=== PATIENT | female | born 1940 | race Caucasian/White ===

== ENCOUNTER 2016-10-22 16:32 | Emergency (ER) | payer MEDICARE, BC ==
[2016-10-22 16:58] VITALS: BP 143/73
--- NOTE | 2016-10-23 17:29 | UC ---
Complaint Female HPI - HPI Summary HPI Summary: PATIENT IS A 76 YO WITH A HISTORY OF UTI'S PRESENTING TO THE UC WITH URINARY PAIN, FREQUENCY AND URGENCY. SHE WAS GIVEN CIPRO ON LAST EPISODE IN AUGUST AND STATED IT WORKED WELL. SHE WAS GIVEN 250MG BID FOR 5 DAYS. SHE WOULD LIKE TO HAVE THE SAME MEDICATION DISPENSED TO HER. SHE DENIES BLOOD IN THE URINE, FEVERS OR BACK PAIN. SHE DENIES OTHER SYMPTOMS INCLUDING ACHES, CHILLS OR SWEATS. - History Of Current Complaint Hx Obtained From: Patient ?: No Onset/Duration: Sudden Onset Timing: Constant Severity Initially: Moderate Severity Currently: Moderate Pain Intensity: 2 Pain Scale Used: 0-10 Numeric Character: Dull, Burning Aggravating Factor(s): Nothing Alleviating Factor(s): Meds Associated Signs And Symptoms: Positive: Negative - Risk Factors Ectopic Risk Factor: Maternal Age ^ 30 Ovarian Torsion Risk Factor: Negative <Rosana Salazar - Last Filed: 10/23/16 17:25> <Holley Bonner - Last Filed: 10/24/16 08:05> - History Of Current Complaint Chief Complaint: UCGU Stated Complaint: BURNING URINATION Time Seen by Provider: 10/22/16 17:01 - Allergies/Home Medications Allergies/Adverse Reactions: Allergies Allergy/AdvReac Type Severity Reaction Status Date / Time Sulfa Drugs Allergy Severe Rash Verified 02/05/16 08:01 Iodinated Contrast Media Allergy Intermediate Hives Verified 02/05/16 08:01 [CONTRAST DYE] Penicillins Allergy Intermediate Rash Verified 02/05/16 08:01 seafood Allergy Severe Hives Uncoded 02/05/16 08:01 PMH/Surg Hx/FS Hx/Imm Hx Previously Healthy: No - SEE BELOW Endocrine History Of: Reports: Thyroid Disease Denies: Diabetes Cardiovascular History Of: Reports: Cardiac Disorders - defibralator, Hypertension, Pacemaker/ICD - DR. CABALLERO FOLLOWING Respiratory History Of: Denies: COPD, Asthma GI/ History Of: Denies: Gastroesophageal Reflux, Renal Disease Neurological History Of: Reports: CVA - TIA, Migraine - possible occular migraines Denies: Dementia, Seizures Psychological History Of: Reports: Anxiety - takes xanax prn, Depression Cancer History Of: Reports: Colorectal Cancer, Breast Cancer - age 40 Other History Of: Anticoagulant Therapy - coumadin - Surgical History Surgical History: Yes Surgery Procedure, Year, and Place: HERNIATED DISK SX LUMBAR LEVEL 3-4 colon ca 2009 section removed. DEFIBRILATOR RT CHEST 2010. mastectomy left side 1980. thyroid surgery 1979. hysterectomy for ovarian cancer 2009 - Family History Known Family History: Positive: Other - osteoporosis - Social History Occupation: Unemployed, Retired Lives: With Family Alcohol Use: None Substance Use Type: None Smoking Status (MU): Never Smoked Tobacco - Immunization History Most Recent Influenza Vaccination: 2014 Most Recent Tetanus Shot: up to date Most Recent Pneumonia Vaccination: 2005 <Rosana Salazar - Last Filed: 10/23/16 17:25> Review of Systems Constitutional: Negative Skin: Negative ENT: Negative Respiratory: Negative Gastrointestinal: Negative Genitourinary: Dysuria, Frequency, Urgency Motor: Negative Neurovascular: Negative Neurological: Negative Psychological: Negative All Other Systems Reviewed And Are Negative: Yes <Rosana Salazar - Last Filed: 10/23/16 17:25> Physical Exam Triage Information Reviewed: Yes Appearance: Well-Appearing, No Pain Distress, Well-Nourished Vital Signs: Initial Vital Signs Temp 98.0 F 10/22/16 16:53 Pulse 62 10/22/16 16:53 Resp 18 10/22/16 16:53 BP 143/73 10/22/16 16:53 Pulse Ox 98 10/22/16 16:53 Eye Exam: Normal Eyes: Positive: Conjunctiva Clear Dental Exam: Normal Respiratory Exam: Normal Respiratory: Positive: Chest non-tender, Lungs clear Cardiovascular Exam: Normal Cardiovascular: Positive: RRR Musculoskeletal Exam: Normal Musculoskeletal: Positive: Strength Intact Neurological Exam: Normal Neurological: Positive: Alert Psychological: Positive: Normal Response To Family, Age Appropriate Behavior Skin Exam: Normal <Rosana Salazar - Last Filed: 10/23/16 17:25> Vital Signs: Initial Vital Signs Temp 98.0 F 10/22/16 16:53 Pulse 62 10/22/16 16:53 Resp 18 10/22/16 16:53 BP 143/73 10/22/16 16:53 Pulse Ox 98 10/22/16 16:53 <Holley Bonner - Last Filed: 10/24/16 08:05> Complaint Female Dx - Course Course Of Treatment: PATIENT WITH BURNING, IRITATION, FREQUENCY AND URGENCY. HISTORY OF UTI'S. PATIENT HAS PYRIMIDINE AND IS REQUESTING CIPRO 5 DAYS. RX GIVEN FOR CIPROFLOXACIN 250MG BID FOR 5 DAYS. SHE WILL FOLLOW UP IN A FEW DAYS WITH PCP. MEDICATIONS REVIEWED WITH PATIENT. BP IS ELEVATED ON ARRIVAL, PATIENT IS INSTRUCTED TO FOLLOW UP IN 1-2 WEEKS WITH PCP. - Differential Dx/Diagnosis Differential Diagnosis/HQI/PQRI: Cervicitis, Pelvic Inflammatory Disease, Renal Colic, Ureteral Stone, Urinary Tract Infection Provider Diagnoses: UTI <Rosana Salazar - Last Filed: 10/23/16 17:25> Discharge <Rosana Salazar - Last Filed: 10/23/16 17:25> <Holley Bonner - Last Filed: 10/24/16 08:05> - Discharge Plan Condition: Stable Disposition: HOME Prescriptions: Ciprofloxacin TAB* [Cipro 250 MG Tab*] 250 mg PO BID #10 tab Patient Education Materials: Urinary Tract Infection in Women (ED) Referrals: Anusha Reed MD [Primary Care Provider] - Additional Instructions: Follow up with PCP as needed. Take Cipro twice daily for 5 days with meals. Use pyrimidine as needed for any bladder spasms or pain If you develop fever, aches, chills, come back to UC. Attestation Statement User Type: Provider - I was available for consult. This patient was seen by the TUNDE. The patient was not presented to, seen by, or examined by me. -Eugene <Holley Bonner - Last Filed: 10/24/16 08:05>
== END 2016-10-22 17:45 | disposition home or self-care (01) ==
LOC: UCEAST 16:32
DX: N39.0 Urinary tract infection, site not specified (principal); B96.89 Other specified bacterial agents as the cause of diseases classified elsewhere
CPT/HCPCS: 81003; 87077; 87086; 87186; 99212; G0463

== ENCOUNTER 2016-12-30 21:00 | Emergency (ER) | payer MEDICARE ==
[2016-12-30] MEDS ORDERED: Aspirin Low Dose CHEW TAB* 81 MG PO ONE (21:49)
[2016-12-30] MEDS ORDERED: HYDROcodone/ACETAMIN 5-325 MG* 1 TAB PO ONE ×2 (22:03→22:51)
[2016-12-30 23:14] VITALS: BP 151/72
--- NOTE | 2016-12-31 08:48 | RAD ---
Edited for charges. INDICATION: Atraumatic chest and right arm pain COMPARISON: Chest x-ray dated February 14, 2016 TECHNIQUE: Single AP view of the chest and 4 views of the right shoulder was obtained. FINDINGS: There is been no change in the appearance of the right chest cardiac pacer with a single lead overlying the heart. The heart and mediastinum exhibit normal size and contour. The lungs are grossly clear. There is no evidence of a large pleural effusion. The visualized bones of the thorax are grossly intact in a single AP view. Degenerative changes of the right shoulder include joint space narrowing, sclerotic change of the bony glenoid and exuberant lower marginal osteophyte formation. The bones are otherwise appropriately aligned. IMPRESSION: 1. No radiographic evidence for acute cardiopulmonary abnormality on this single AP view chest x-ray. 2. Degenerative changes of the right shoulder. MTDD
--- NOTE | 2017-01-07 14:46 | ED ---
Uma Dixon Thomas, scribed for Fabiano Martin MD on 12/30/16 at 2156 . Upper Extremity Pain - HPI Summary HPI Summary: The pt is a 76 y/o F accompanied by and presenting to the ED c/o R arm and R scapula pain that began today at 18:00. The pain is described as sharp when the pt is moving and aching when the patient is still. The pain is constant and is rated 3/10. The pain is worsened with movement. The patient took 2 tylenols at 19:00 that did not relieve the pain. The pt denies recent trauma, tick bites, and heavy lifting. Pt denies fevers, chills, falls, diaphoresis, neck pain, SOB, palpitations, arm swelling. PMHx: PE (last year), V -Fib, arthritis, osteoporosis, breast CA, ovarian CA, pancreatitis, anticoagulant therapy, HTN. PSHx: AICD (6 years), mastectomy. - History of Current Complaint Chief Complaint: EDExtremityUpper Stated Complaint: RT ARM PAIN Time Seen by Provider: 12/30/16 21:38 Hx Obtained From: Patient, Family/Terminal Press Operator - in room Mechanism Of Injury: Unknown Onset/Duration: Started Hours Ago - today at 18:00, Still Present Timing: Constant Pain Location: Arm - R, Other: - R scapula Character: Sharp - when moving, Dull - when still Aggravating Factor(s): Movement Alleviating Factor(s): Nothing, Other - Took tylenol to no relief of pain Associated Signs & Symptoms: Positive: Other - NEG: falls, palpitations, arm swelling. Negative: Fever, Chest Pain, SOB, Neck Pain, Diaphoresis - Allergies/Home Medications Allergies/Adverse Reactions: Allergies Allergy/AdvReac Type Severity Reaction Status Date / Time Sulfa Drugs Allergy Severe Rash Verified 02/05/16 08:01 Iodinated Contrast Media Allergy Intermediate Hives Verified 02/05/16 08:01 [CONTRAST DYE] Penicillins Allergy Intermediate Rash Verified 02/05/16 08:01 seafood Allergy Severe Hives Uncoded 02/05/16 08:01 PMH/Surg Hx/FS Hx/Imm Hx Previously Healthy: No Endocrine/Hematology History: Reports: Hx Anticoagulant Therapy - coumadin, Hx Thyroid Disease Denies: Hx Diabetes, Hx Anemia Cardiovascular History: Reports: Hx Auto Implanted Cardiovert Defib, Hx Hypertension, Hx Pacemaker/ICD - DR. ADA YU, Other Cardiovascular Problems/Disorders - Pacer, ICD, V-Fib Respiratory History: Reports: Hx Pulmonary Embolism Denies: Hx Asthma, Hx Chronic Obstructive Pulmonary Disease (COPD) GI History: Reports: Hx Diverticulosis, Hx Jaundice - as child, Other GI Disorders - Choley, Colon CA History: Denies: Hx Renal Disease Musculoskeletal History: Reports: Hx Arthritis, Hx Back Problems, Hx Osteoporosis Denies: Hx Rheumatoid Arthritis Sensory History: Reports: Hx Contacts or Glasses Denies: Hx Hearing Aid Opthamlomology History: Reports: Hx Contacts or Glasses Neurological History: Reports: Hx Migraine - possible occular migraines, Other Neuro Impairments/Disorders - 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 DEFIBRILATOR RT CHEST 2010. mastectomy left side 1980. thyroid surgery 1979. hysterectomy for ovarian cancer 2009 Hx Anesthesia Reactions: Yes - patient states she is irate when coming out Infectious Disease History: No Infectious Disease History: Reports: Hx Hepatitis - as child Denies: Hx Human Immunodeficiency Virus (HIV), History Other Infectious Disease, Traveled Outside the [place] in Last 30 Days - Family History Known Family History: Positive: Other - osteoporosis - Social History Alcohol Use: None Substance Use Type: Reports: None Smoking Status (MU): Never Smoked Tobacco Review of Systems Constitutional: Negative Negative: Fever, Chills Eyes: Negative Negative: Erythema - eye ENT: Negative Negative: Sore Throat Cardiovascular: Negative Negative: Palpitations, Chest Pain Respiratory: Negative Negative: Shortness Of Breath, Cough Gastrointestinal: Negative Negative: Abdominal Pain, Vomiting, Nausea Genitourinary: Negative Negative: dysuria, hematuria Positive: Other - POS: R arm pain (worse with movement), R scapula pain (worse with movement). Negative: Myalgia, Edema - leg, arm Skin: Negative Negative: Rash Neurological: Negative, Other - NEG: dizziness Psychological: Normal All Other Systems Reviewed And Are Negative: Yes Physical Exam - Summary Physical Exam Summary: Constitutional: Well-developed, Well-nourished, Alert. (-) Distressed Skin: Warm, Dry HENT: Normocephalic; Atraumatic Eyes: Conjunctiva normal Neck: Musculoskeletal ROM normal neck. (-) JVD, (-) Stridor, (-) Tracheal deviation Cardio: Rhythm regular, rate normal, Heart sounds normal; Intact distal pulses; The pedal pulses are 2+ and symmetric. Radial pulses are 2+ and symmetric. (-) Murmur Pulmonary/Chest wall: Effort normal. (-) Respiratory distress, (-) Wheezes, (-) Rales Abd: Soft, (-) Tenderness, (-) Distension, (-) Guarding, (-) Rebound Musculoskeletal: Tenderness to the R shoulder joint. No swelling. No effusion. Extremely limited ROM for the R shoulder. Lymph: (-) Cervical adenopathy Neuro: Alert, Oriented x3 Psych: Mood and affect Normal Triage Information Reviewed: Yes Vital Signs On Initial Exam: Initial Vitals Temp Pulse Resp BP Pulse Ox 98.9 F 82 16 161/84 98 12/30/16 21:02 12/30/16 21:02 12/30/16 21:02 12/30/16 21:02 12/30/16 21:02 Vital Signs Reviewed: Yes Diagnostics - Vital Signs Vital Signs Temp Pulse Resp BP Pulse Ox 12/30/16 21:37 98.9 F 82 16 161/84 98 12/30/16 21:02 98.9 F 82 16 161/84 98 - Laboratory Lab Statement: Any lab studies that have been ordered have been reviewed, and results considered in the medical decision making process. - Radiology R Shoulder XR Xray Interpretation: No Acute Changes - Severe arthritis and bone spurring Radiology Interpretation Completed By: ED Physician CXR Xray Interpretation: No Acute Changes - Negative for active cardiopulmonary disease Radiology Interpretation Completed By: ED Physician - EKG 21:41 Cardiac Rate: NL - 70 BPM EKG Interpretation: Sinus rhythm. No STEMI Course/Dx - Course Assessment/Plan: The pt is a 76 y/o F accompanied by and presenting to the ED c/o R arm and R scapula pain that began today at 18:00. The pain is described as sharp when the pt is moving and aching when the patient is still. The pain is constant and is rated 3/10. The pain is worsened with movement. The patient took 2 tylenols at 19:00 that did not relieve the pain. The pt denies recent trauma, tick bites, and heavy lifting. Pt denies fevers, chills, falls, diaphoresis, neck pain, SOB, palpitations, arm swelling. PMHx: PE (last year), V -Fib, arthritis, osteoporosis, breast CA, ovarian CA, pancreatitis, anticoagulant therapy, HTN. PSHx: AICD (6 years), mastectomy. An EKG revealed sinus rhythm and no STEMI. The Shoulder XR shows severe arthritis and bone spurring. CXR is negative for active cardiopulmonary disease. I consulted with Dr. Etienne, orthopedics, at 22:41. He agrees that there is no fracture. Given her limited ROM and significant XR findings, we believe osteoarthritis is the definite cause for her pain. I do not suspect DVT or cardiac etiology. The patient was diagnosed with severe R shoulder arthritis and discharged home. - Diagnoses Provider Diagnoses: Severe R shoulder arthritis - Physician Notifications Discussed Care of Patient With: Berry Etienne Time Discussed With Above Provider: 22:40 Instructed by Provider To: Other - Discussed patient care. He agrees that there is no fracture. Discharge - Discharge Plan Condition: Stable Disposition: HOME Prescriptions: HYDROcodone/ACETAMIN 5-325 MG* [[place] 5-325 TAB*] 1 tab PO Q6H PRN #12 tab MDD 4 PRN Reason: Pain - Moderate To Severe Patient Education Materials: Arthritis (ED) Referrals: Berry Etienne MD [Medical Doctor] - 3 Days The documentation as recorded by the Uma andrea Thomas accurately reflects the service I personally performed and the decisions made by me, Fabiano Martin MD.
== END 2016-12-30 23:15 | disposition home or self-care (01) ==
LOC: ED 21:00
DX: M19.011 Primary osteoarthritis, right shoulder (principal); Z95.810 Presence of automatic (implantable) cardiac defibrillator; I10 Essential (primary) hypertension; Z86.711 Personal history of pulmonary embolism; Z79.01 Long term (current) use of anticoagulants; Z85.038 Personal history of other malignant neoplasm of large intestine; F41.9 Anxiety disorder, unspecified; F32.9 Major depressive disorder, single episode, unspecified; Z88.0 Allergy status to penicillin; Z88.2 Allergy status to sulfonamides; Z91.041 Radiographic dye allergy status; Z91.013 Allergy to seafood
CPT/HCPCS: 71010; 93005; 99282; A9270-GY

== ENCOUNTER 2016-12-31 06:04 | Emergency (ER) | payer MEDICARE ==
[2016-12-31] MEDS ORDERED: oxyCODONE/Acetamin 5/325 MG* TAB PO ONE (06:39)
--- NOTE | 2016-12-31 06:52 | ED ---
Deven Dixon Alfonso, scribed for Claude Morales on 12/31/16 at 0639 . Upper Extremity Pain - HPI Summary HPI Summary: This patient is a 76 year old F presenting to [facility] accompanied by with a chief complaint of right arm pain since yesterday. Pt rates the pain 8/10 in severity. Symptoms aggravated by touch and position, and alleviated by nothing. Symptoms not alleviated by [place]. Pt denies CP, SOB, abd pain, and fever. She presented to [facility] yesterday for right shoulder arthritis. She is taking Coumadin. PMHx of HTN, arthritis, and osteoporosis. - History of Current Complaint Chief Complaint: EDExtremityUpper Stated Complaint: RIGHT ARM, HAND PAIN AND SHOULDER PAIN Time Seen by Provider: 12/31/16 06:18 Hx Obtained From: Patient Onset/Duration: Started Days Ago - Yesterday Timing: Constant, Lasting Days - Yesterday Severity Initially: Moderate Severity Currently: Moderate Pain Location: Shoulder, Arm Aggravating Factor(s): Other - Touch and position Alleviating Factor(s): Nothing Associated Signs & Symptoms: Positive: Negative - Allergies/Home Medications Allergies/Adverse Reactions: Allergies Allergy/AdvReac Type Severity Reaction Status Date / Time Sulfa Drugs Allergy Severe Rash Verified 02/05/16 08:01 Iodinated Contrast Media Allergy Intermediate Hives Verified 02/05/16 08:01 [CONTRAST DYE] Penicillins Allergy Intermediate Rash Verified 02/05/16 08:01 seafood Allergy Severe Hives Uncoded 02/05/16 08:01 PMH/Surg Hx/FS Hx/Imm Hx Endocrine/Hematology History: Reports: Hx Anticoagulant Therapy - coumadin, Hx Thyroid Disease Denies: Hx Diabetes, Hx Anemia Cardiovascular History: Reports: Hx Auto Implanted Cardiovert Defib, Hx Hypertension, Hx Pacemaker/ICD - DR. ADA YU, Other Cardiovascular Problems/Disorders - Pacer, ICD Respiratory History: Denies: Hx Asthma, Hx Chronic Obstructive Pulmonary Disease (COPD) GI History: Reports: Hx Diverticulosis, Hx Jaundice - as child, Other GI Disorders - Choley, Colon CA History: Denies: Hx Renal Disease Musculoskeletal History: Reports: Hx Arthritis, Hx Back Problems, Hx Osteoporosis Denies: Hx Rheumatoid Arthritis Sensory History: Reports: Hx Contacts or Glasses Denies: Hx Hearing Aid Opthamlomology History: Reports: Hx Contacts or Glasses Neurological History: Reports: Hx Migraine - possible occular migraines, Other Neuro Impairments/Disorders - 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 DEFIBRILATOR RT CHEST 2010. mastectomy left side 1980. thyroid surgery 1979. hysterectomy for ovarian cancer 2009 Hx Anesthesia Reactions: Yes - patient states she is irate when coming out Infectious Disease History: No Infectious Disease History: Reports: Hx Hepatitis - as child Denies: Hx Human Immunodeficiency Virus (HIV), History Other Infectious Disease, Traveled Outside the in Last 30 Days - Family History Known Family History: Positive: Other - osteoporosis - Social History Alcohol Use: None Substance Use Type: Reports: None Smoking Status (MU): Never Smoked Tobacco Review of Systems Negative: Fever Negative: Chest Pain Negative: Shortness Of Breath Negative: Abdominal Pain Positive: Other - Positive right arm and shoulder pain All Other Systems Reviewed And Are Negative: Yes Physical Exam Triage Information Reviewed: Yes Vital Signs On Initial Exam: Initial Vitals Temp Pulse Resp BP Pulse Ox 98.1 F 80 20 178/86 96 12/31/16 06:11 12/31/16 06:11 12/31/16 06:11 12/31/16 06:11 12/31/16 06:11 Vital Signs Reviewed: Yes Appearance: Positive: Well-Appearing, No Pain Distress Skin: Positive: Warm, Skin Color Reflects Adequate Perfusion, Dry Head/Face: Positive: Normal Head/Face Inspection Eyes: Positive: EOMI, PREM ENT: Positive: Normal ENT inspection Neck: Positive: Supple, Nontender Respiratory/Lung Sounds: Positive: Clear to Auscultation, Breath Sounds Present Cardiovascular: Positive: RRR, Pulses are Symmetrical in both Upper and Lower Extremities Abdomen Description: Positive: Nontender, Soft Bowel Sounds: Positive: Present Musculoskeletal: Positive: Other - Diffuse right arm and right arm tenderness. No neurovascular deficit. Neurological: Positive: Normal, Sensory/Motor Intact, Alert, Oriented to Person Place, Time - [place] Coma Scale Coma Scale Total: 15 Diagnostics - Vital Signs Vital Signs Temp Pulse Resp BP Pulse Ox 12/31/16 06:19 82 183/88 98 12/31/16 06:18 79 98 12/31/16 06:12 98.1 F 80 20 178/86 96 12/31/16 06:11 98.1 F 80 20 178/86 96 - Laboratory Lab Statement: Any lab studies that have been ordered have been reviewed, and results considered in the medical decision making process. Course/Dx - Course Assessment/Plan: 68 year old F presents to the ED with a CC of right arm pain since yesterday. Pt denies CP, SOB, abd pain, and fever. An US is pending at this time. Labs are pending at this time. Pt is signed out to Dr. Sommer. - Diagnoses Provider Diagnoses: Pain of right upper extremity Discharge - Discharge Plan Condition: Stable Disposition: OTHER Discharge Disposition Comment: Pt is signed out to Dr. Sommer, pending disposition , awaiting US and labs. Referrals: Anusha Reed MD [Primary Care Provider] - 3 Days The documentation as recorded by the Deven andrea Alfonso accurately reflects the service I personally performed and the decisions made by Andrew ferreira Emmanuel.
[2016-12-31 07:25] LABS: Hematocrit 40 % (35-47); Hemoglobin 13.2 g/dl (12.0-16.0); Mean Corpuscular HGB Conc 33 g/dl (31-36); Mean Corpuscular Hemoglobin 31 pg (27-31); Mean Corpuscular Volume 92 fL (80-97); Mean Platelet Volume 10 um3 (7.4-10.4); Red Blood Count 4.34 10^6/ul (4.0-5.4); Red Cell Distribution Width 14 % (10.5-15); White Blood Count 7.7 10^3/ul (3.5-10.8)
[2016-12-31 07:37] LABS: Albumin 4.1 g/dL (3.2-5.2); BUN/Creatinine Ratio 25.7 (8-20); Calcium 8.8 mg/dL (8.6-10.3); EGFR African American 97.6 (>60); EGFR Non-African American 75.9 (>60); Potassium 3.6 mmol/L (3.5-5.0); Total Bilirubin 0.7 mg/dL (0.2-1.0); Total Protein 7.1 g/dL (6.4-8.9)
--- NOTE | 2016-12-31 08:14 | RAD ---
HISTORY: Right upper extremity pain COMPARISON: None. TECHNIQUE: Multiple transverse and longitudinal ultrasound images were obtained of the veins of the right upper extremity upper extremity using grayscale, color Doppler, and spectral Doppler imaging with and without compression and with augmentation. FINDINGS: VEINS: The axillary, brachial, basilic and cephalic are compressible throughout their course, with normal flow on color Doppler imaging and normal response to augmentation on spectral Doppler imaging. The subclavian vein exhibits appropriate augmentation and phasicity. The radial and ulnar veins are compressible. Evidence of adequate flow is identified in the right internal jugular and subclavian vein as well. SOFT TISSUES: Grossly normal. IMPRESSION: No sonographic evidence of deep vein thrombosis.
[2016-12-31] MEDS ORDERED: Lisinopril TAB* 10 MG PO ONE (09:14)
[2016-12-31] MEDS ORDERED: HYDROmorphone* 1 MG/ML 1 ML SYR IV SLOW PU ONE ×2 (09:17→10:53)
[2016-12-31] MEDS ORDERED: Metoprolol Succinate XL TAB* 50 MG PO ONE (09:19)
[2016-12-31] MEDS ORDERED: Dexamethasone IV* 4 MG/ML 1 ML (4 MG) IM ONE (09:20)
[2016-12-31] MEDS ORDERED: Dexamethasone IV* 4 MG/ML 1 ML (4 MG) IV SLOW PU ONE (09:36)
[2016-12-31] MEDS: Diazepam TAB(*) 5 MG PO ONE ×2 (09:44→10:14)
[2016-12-31 11:29] VITALS: BP 186/74
--- NOTE | 2017-01-02 07:14 | ED ---
Mark Dixon Auryana, scribed for Otto Sommer MD on 12/31/16 at 0904 . Progress - Progress Note Progress Note: sign out from Dr. Morales to Dr. Sommer at 07:00 pending RUE US. Patient was seen here in ED by Dr. Martin yesterday for the same complaint and discharged home. Patient presents to the ED with unimproved pain. She has decreased ROM in the right shoulder. Distal neurovascular intact. Condition stable. - Results/Orders Results/Orders: VL UPPER EXT VEIN DOPPLER RT IMPRESSION: No sonographic evidence of deep vein thrombosis. Re-Evaluation - Re-Evaluation First Eval Re-Evaluation Time: 09:03 - discussed US results and plan of action Comment: Patient reports increase pain in right shoulder with minimal relief from percocet given by previous attending physician. Second Eval Re-Evaluation Time: 10:40 - much improved and agrees with plan of action Change: Improved - much improved Comment: patient will be discharged after another round of medications. patient agrees. Course/Dx - Course Course Of Treatment: Sign out from Dr. Morales to Dr. Sommer at 07:00 pending RUE US. Patient was seen here in ED by Dr. Martin yesterday for the same complaint and discharged home. Patient presents to the ED with unimproved pain. She has decreased ROM in the right shoulder. Distal neurovascular intact. RUE US negative for DVT. On first re-evaluation, patient reports increase pain in right shoulder with minimal relief from Percocet given by previous attending physician. Patient was given diazepam, Dilaudid, and dexamethasone. On second re-evaluation, patient reports much improvement. Patient will be given 1 more round of medications and will be discharged home with Dilaudid and valium. Patient agrees with plan. Dx: Radiculopathy and right arm pain. - Diagnoses Provider Diagnoses: Pain of right upper extremity, Radiculopathy The documentation as recorded by the Mark andrea Auryana accurately reflects the service I personally performed and the decisions made by , Otto Sommer MD.
== END 2016-12-31 11:29 | disposition home or self-care (01) ==
LOC: ED 06:04
DX: M54.10 Radiculopathy, site unspecified (principal); M79.601 Pain in right arm
CPT/HCPCS: 36415; 80053; 85025; 85610; 85730; 96374; 96375; 99283; A9270-GY; J1100; J1170

== ENCOUNTER 2017-02-16 18:27 | Emergency (ER) | payer MEDICARE, BC ==
[2017-02-16 18:59] LABS: Hematocrit 39 % (35-47); Hemoglobin 12.9 g/dl (12.0-16.0); Mean Corpuscular HGB Conc 33 g/dl (31-36); Mean Corpuscular Hemoglobin 30 pg (27-31); Mean Corpuscular Volume 91 fL (80-97); Mean Platelet Volume 9 um3 (7.4-10.4); Red Blood Count 4.33 10^6/ul (4.0-5.4); Red Cell Distribution Width 14 % (10.5-15); White Blood Count 4.3 10^3/ul (3.5-10.8)
[2017-02-16 19:22] LABS: Troponin I 0.01 ng/mL (<0.04)
[2017-02-16 19:36] LABS: Albumin 4.2 g/dL (3.2-5.2); BUN/Creatinine Ratio 16.3 (8-20); Calcium 9.3 mg/dL (8.6-10.3); EGFR African American 89.2 (>60); EGFR Non-African American 69.4 (>60); Potassium 3.8 mmol/L (3.5-5.0); Total Bilirubin 0.7 mg/dL (0.2-1.0); Total Protein 7.2 g/dL (6.4-8.9)
--- NOTE | 2017-02-16 21:24 | RAD ---
INDICATION: Chest pain COMPARISON: December 22, 2016 TECHNIQUE: An AP portable view obtained at 2108 hours is submitted. FINDINGS: Bones/Soft Tissues: There are no acute bony findings. There is a right-sided cardiac pacemaker/defibrillator Cardiomediastinal: The cardiomediastinal silhouette is normal. Lungs: There are no infiltrates. Pleura: There are no pleural effusions. Other: None IMPRESSION: NO ACTIVE DISEASE.
[2017-02-16 21:40] VITALS: BP 154/72
--- NOTE | 2017-02-17 01:19 | ED ---
Yayo Dixon Angela, scribed for Celestina Sanchez MD on 02/16/17 at 1947 . HPI Chest Pain - HPI Summary HPI Summary: This pt is a 76 y/o female presenting to [facility] c/o central chest pain since 13: 00 today. Pt notes it is intermittent and lasts less than 1 minutes. She states approximately 20 chest pain episodes per hour. Pt reports she has a new defibrillator for ventricular tachycardia. She states that she has had breast, colon, and ovarian CA surgeries. Pt is currently on lisinopril and metropolol. She is taking Coumadin for TIA. She denies tobacco, drug or alcohol use. Pt has an iodinated contrast media allergy. - History of Current Complaint Chief Complaint: EDChestPainROMI Time Seen by Provider: 02/16/17 19:25 Hx Obtained From: Patient Onset/Duration: Started Hours Ago Timing: Intermittent Pain Intensity: 2 Pain Scale Used: 0-10 Numeric Chest Pain Location: Mid Sternal Chest Pain Radiates: No Aggravating Factor(s): Nothing Alleviating Factor(s): Nothing Associated Signs and Symptoms: Positive: Chest Pain. Negative: Back Pain - Additional Pertinent History Primary Care Physician: [id number] - Allergy/Home Medications Allergies/Adverse Reactions: Allergies Allergy/AdvReac Type Severity Reaction Status Date / Time Sulfa Drugs Allergy Severe Rash Verified 02/16/17 20:00 Iodinated Contrast Media Allergy Intermediate Hives Verified 02/16/17 20:00 [CONTRAST DYE] Penicillins Allergy Intermediate Rash Verified 02/16/17 20:00 seafood Allergy Severe Hives Uncoded 02/16/17 20:00 Home Medications: Home Medications Aspirin 81 MG TAB 81 mg PO DAILY 02/16/17 [History Confirmed 02/16/17] B12 1,000 mg PO 02/16/17 [History] PMH/Surg Hx/FS Hx/Imm Hx Endocrine/Hematology History: Reports: Hx Anticoagulant Therapy - coumadin, Hx Thyroid Disease Denies: Hx Diabetes, Hx Anemia Cardiovascular History: Reports: Hx Auto Implanted Cardiovert Defib, Hx Hypertension, Hx Pacemaker/ICD - DR. CABALLERO FOLLOWING, Other Cardiovascular Problems/Disorders - Pacer, ICD Respiratory History: Denies: Hx Asthma, Hx Chronic Obstructive Pulmonary Disease (COPD) GI History: Reports: Hx Diverticulosis, Hx Jaundice - as child, Other GI Disorders - Choley, Colon CA History: Denies: Hx Renal Disease Musculoskeletal History: Reports: Hx Arthritis, Hx Back Problems, Hx Osteoporosis Denies: Hx Rheumatoid Arthritis Sensory History: Reports: Hx Contacts or Glasses Denies: Hx Hearing Aid Opthamlomology History: Reports: Hx Contacts or Glasses Neurological History: Reports: Hx Migraine - possible occular migraines, Other Neuro Impairments/Disorders - 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 Breast CA : Left mastectomy. Ovarian CA. Hx Chemotherapy: Yes Hx Radiation Therapy: No - Surgical History Surgery Procedure, Year, and Place: HERNIATED DISK SX LUMBAR LEVEL 3-4 colon ca 2009 section removed. DEFIBRILATOR RT CHEST 2010. mastectomy left side 1980. thyroid surgery 1979. hysterectomy for ovarian cancer 2009 Hx Anesthesia Reactions: Yes - patient states she is irate when coming out Infectious Disease History: Reports: Hx Hepatitis - as child Denies: Hx Human Immunodeficiency Virus (HIV), History Other Infectious Disease, Traveled Outside the [place] in Last 30 Days - Family History Known Family History: Positive: Other - osteoporosis Family History: No FHx of ventricular tachycardia. - Social History Lives: With Family - family Alcohol Use: None Substance Use Type: Reports: None Smoking Status (MU): Never Smoked Tobacco Review of Systems Negative: Fever, Chills Positive: Chest Pain Respiratory: Negative Negative: Abdominal Pain, Vomiting Genitourinary: Negative Musculoskeletal: Negative Skin: Negative Negative: Headache, Weakness All Other Systems Reviewed And Are Negative: Yes Physical Exam Triage Information Reviewed: Yes Vital Signs On Initial Exam: Initial Vitals Temp Pulse Resp BP Pulse Ox 99.3 F 78 17 169/74 97 02/16/17 18:37 02/16/17 18:37 02/16/17 18:37 02/16/17 18:37 02/16/17 18:37 Vital Signs Reviewed: Yes Appearance: Positive: Well-Appearing, No Pain Distress Skin: Positive: Warm, Skin Color Reflects Adequate Perfusion, Dry Eyes: Positive: EOMI, PREM ENT: Positive: Pharynx normal, TMs normal Neck: Positive: Supple, Nontender Respiratory/Lung Sounds: Positive: Clear to Auscultation, Breath Sounds Present. Negative: Rales, Rhonchi, Wheezes Cardiovascular: Positive: RRR. Negative: Murmur, Rub, Other - gallop Abdomen Description: Positive: Nontender, Soft. Negative: Distended, Guarding, Other: - rebound Bowel Sounds: Positive: Present Musculoskeletal: Positive: Strength/ROM Intact. Negative: Edema Left, Edema Right Neurological: Positive: Sensory/Motor Intact, Alert, Oriented to Person Place, Time, CN Intact II-III Psychiatric: Positive: Affect/Mood Appropriate Diagnostics - Vital Signs Vital Signs Temp Pulse Resp BP Pulse Ox 02/16/17 18:37 99.3 F 78 17 169/74 97 - Laboratory Lab Results: Lab Results 02/16/17 02/16/17 02/16/17 Range/Units 18:50 18:50 18:50 WBC 4.3 (3.5-10.8) 10^3/ul RBC 4.33 (4.0-5.4) 10^6/ul Hgb 12.9 (12.0-16.0) g/dl Hct 39 (35-47) % MCV 91 (80-97) fL MCH 30 (27-31) pg MCHC 33 (31-36) g/dl RDW 14 (10.5-15) % Plt Count 168 (150-450) 10^3/ul MPV 9 (7.4-10.4) um3 Neut % (Auto) 48.7 (38-83) % Lymph % (Auto) 33.1 (25-47) % Tama % (Auto) 15.3 H (1-9) % Eos % (Auto) 1.6 (0-6) % Baso % (Auto) 1.3 (0-2) % Absolute Neuts (auto) 2.1 (1.5-7.7) 10^3/ul Absolute Lymphs (auto) 1.4 (1.0-4.8) 10^3/ul Absolute Monos (auto) 0.7 (0-0.8) 10^3/ul Absolute Eos (auto) 0.1 (0-0.6) 10^3/ul Absolute Basos (auto) 0.1 (0-0.2) 10^3/ul Absolute Nucleated RBC 0 10^3/ul Nucleated RBC % 0.1 INR (Anticoag Therapy) 1.72 H (0.89-1.11) Sodium 137 (133-145) mmol/L Potassium 3.8 (3.5-5.0) mmol/L Chloride 102 (101-111) mmol/L Carbon Dioxide 27 (22-32) mmol/L Anion Gap 8 (2-11) mmol/L BUN 13 (6-24) mg/dL Creatinine 0.80 (0.51-0.95) mg/dL Est GFR ( Amer) 89.2 (>60) Est GFR (Non-Af Amer) 69.4 (>60) BUN/Creatinine Ratio 16.3 (8-20) Glucose 99 (70-100) mg/dL Calcium 9.3 (8.6-10.3) mg/dL Total Bilirubin 0.70 (0.2-1.0) mg/dL AST 20 (13-39) U/L ALT 13 (7-52) U/L Alkaline Phosphatase 58 (34-104) U/L Troponin I 0.01 (<0.04) ng/mL Total Protein 7.2 (6.4-8.9) g/dL Albumin 4.2 (3.2-5.2) g/dL Globulin 3.0 (2-4) g/dL Albumin/Globulin Ratio 1.4 (1-3) Result Diagrams: 02/16/17 18:50 02/16/17 18:50 Lab Statement: Any lab studies that have been ordered have been reviewed, and results considered in the medical decision making process. - Radiology Chest XR Xray Interpretation: No Acute Changes - IMPRESSION: no active disease. ED physician has reviewed this radiology report and agrees. Radiology Interpretation Completed By: Radiologist - EKG 1858 Cardiac Rate: NL EKG Rhythm: Sinus Rhythm EKG Interpretation: LVH Chest Pain Course/Dx - Course Course Of Treatment: 76 yo female with intermittent cp with hx of PE ddimer was neg (INR was not therapeutic) and two trops were neg pt was safe for discharge close followup with pmd - Diagnoses Provider Diagnoses: Chest pain Discharge - Discharge Plan Condition: Stable Disposition: HOME Patient Education Materials: Chest Pain (ED) Referrals: Anusha Reed MD [Primary Care Provider] - The documentation as recorded by the Yayo andrea Angela accurately reflects the service I personally performed and the decisions made by , Celestina Sanchez MD.
== END 2017-02-16 21:43 | disposition home or self-care (01) ==
LOC: ED 18:27
DX: R07.9 Chest pain, unspecified (principal); Z86.73 Personal history of transient ischemic attack (TIA), and cerebral infarction without residual deficits; Z79.01 Long term (current) use of anticoagulants; Z95.810 Presence of automatic (implantable) cardiac defibrillator; E07.9 Disorder of thyroid, unspecified; K57.90 Diverticulosis of intestine, part unspecified, without perforation or abscess without bleeding; F41.9 Anxiety disorder, unspecified; I47.2 Ventricular tachycardia; Z88.0 Allergy status to penicillin; Z88.2 Allergy status to sulfonamides; Z85.038 Personal history of other malignant neoplasm of large intestine; Z85.3 Personal history of malignant neoplasm of breast; M19.90 Unspecified osteoarthritis, unspecified site; M81.0 Age-related osteoporosis without current pathological fracture
CPT/HCPCS: 36415; 71010; 80053; 84484; 85025; 85379; 85610; 93005; 99284

== ENCOUNTER 2017-07-22 14:55 | Emergency (ER) | payer MEDICARE, OTHER ==
[2017-07-22 15:34] VITALS: BP 173/86
--- NOTE | 2017-07-22 16:07 | UC ---
Skin Complaint HPI - HPI Summary HPI Summary: Patient is s/p skin biopsy of the left elbow 9 days ago by her dentist/owner. She was seen there a few days ago with concerns with drainage; she reports she had been having light yellow drainage from the site of biopsy. She denies any fever, chills, or joint pain associated with the biopsy. - History of Current Complaint Chief Complaint: UCSkin Time Seen by Provider: 07/22/17 15:53 Stated Complaint: ELBOW WOUND W/ DRAINAGEC Hx Obtained From: Patient Onset/Duration: Sudden Onset, Lasting Days Skin Exposure Onset/Duration: Days Ago Onset Severity: Mild Current Severity: Mild Pain Intensity: 1 Location: Discrete Character: Redness Aggravating Factor(s): Nothing Alleviating Factor(s): Nothing Associated Signs & Symptoms: Positive: Negative Related History: Other: - recent skin biopsy - Allergy/Home Medications Allergies/Adverse Reactions: Allergies Allergy/AdvReac Type Severity Reaction Status Date / Time Iodinated Contrast- Oral and Allergy Hives Verified 07/22/17 15:38 IV Dye Penicillins Allergy Rash Verified 07/22/17 15:37 Sulfa (Sulfonamide Allergy Rash Verified 07/22/17 15:37 Antibiotics) seafood Allergy Severe Hives Uncoded 02/16/17 20:00 Home Medications: Home Medications Warfarin TAB(*) [Coumadin TAB(*)] 1 tab PO DAILY 07/22/17 [History Confirmed ] Review of Systems Constitutional: Negative Skin: Negative Eyes: Other - left elbow s/p skin biopsy with light yellow drainae. ENT: Negative Respiratory: Negative Cardiovascular: Negative Gastrointestinal: Negative Genitourinary: Negative Motor: Negative Neurovascular: Negative Musculoskeletal: Negative Neurological: Negative Psychological: Negative Is Patient Immunocompromised?: No All Other Systems Reviewed And Are Negative: Yes PMH/Surg Hx/FS Hx/Imm Hx Previously Healthy: Yes Other History Of: Anticoagulant Therapy - coumadin - Surgical History Surgical History: Yes Surgery Procedure, Year, and Place: HERNIATED DISK SX LUMBAR LEVEL 3-4 colon ca 2009 section removed. DEFIBRILATOR RT CHEST 2010. mastectomy left side 1980. thyroid surgery 1979. hysterectomy for ovarian cancer 2009 - Family History Known Family History: Positive: Other - osteoporosis Family History: No FHx of ventricular tachycardia. - Social History Alcohol Use: None Substance Use Type: None Smoking Status (MU): Never Smoked Tobacco - Immunization History Most Recent Influenza Vaccination: 2014 Most Recent Tetanus Shot: \ Most Recent Pneumonia Vaccination: 2005 Physical Exam Triage Information Reviewed: Yes Appearance: Well-Appearing Vital Signs: Initial Vital Signs Temp 97.6 F 07/22/17 15:29 Pulse 81 07/22/17 15:29 Resp 18 07/22/17 15:29 BP 173/86 07/22/17 15:29 Pulse Ox 99 07/22/17 15:29 Vital Signs Reviewed: Yes Eye Exam: Normal ENT Exam: Normal Neck exam: Normal Neck: Positive: 1 Respiratory Exam: Normal Cardiovascular Exam: Normal Neurological Exam: Normal Skin Exam: Other - left elbow biospy site, with mild pink surrounding biospy site, 2.0 cm in diametere. small amount of clear serous drainage noted, joint nontender with flexion, and extension. joint no warmth on palpation. Course/Dx - Course Course Of Treatment: Patient presents s/p skin biospy from 9 days ago, and she was seen and evaluated by them for the serous drainage. Today she has some pink skin surrounding the biospy site, with no signs or symtpoms of joint involvement or systemic inflammatory responce. I did put her on kelfex and asked her to follow up with the dermatolgist again on Monday. I told her that if she should develops any joint pain, fever, or chills that she would need to go directly to the ER. She verbalzied understanding of and was in agreement with the discharge plan. - Differential Diagnoses - Skin Complaint Differential Diagnoses: Cellulitis - Diagnoses Provider Diagnoses: cellulitis Discharge - Discharge Plan Condition: Stable Disposition: HOME Prescriptions: Cephalexin CAP* [Keflex CAP*] 250 mg PO BID #10 cap Patient Education Materials: Cellulitis (DC) Referrals: Anusha Reed MD [Primary Care Provider] - Additional Instructions: You should follow up with the dentist/owner in 48 hours.
== END 2017-07-22 16:29 | disposition home or self-care (01) ==
LOC: UCEAST 14:55
DX: L03.114 Cellulitis of left upper limb (principal); Z79.01 Long term (current) use of anticoagulants
CPT/HCPCS: 87070; 87205; 99212; G0463

== ENCOUNTER → 2017-12-08 16:46 | Emergency (ER) | payer MEDICARE, OTHER ==
[2017-12-08 17:19] LABS: ABS Basophils 0.1 10^3/ul (0-0.2); ABS Eosinophils 0.1 10^3/ul (0-0.6); ABS Lymphocytes 1.4 10^3/ul (1.0-4.8); ABS Monocytes 0.7 10^3/ul (0-0.8); ABS Neutrophils 2.4 10^3/ul (1.5-7.7); ABS Nucleated RBC 0 10^3/ul; Eosinophil % 2.3 % (0-6); Hematocrit 38 % (35-47); Hemoglobin 12.9 g/dl (12.0-16.0); Lymphocyte % 29.7 % (25-47); Mean Corpuscular HGB Conc 34 g/dl (31-36); Mean Corpuscular Hemoglobin 30 pg (27-31); Mean Corpuscular Volume 90 fL (80-97); Mean Platelet Volume 9.2 um3 (7.4-10.4); Nucleated Red Blood Cells % 0.1; Platelet Count 155 10^3/ul (150-450); Red Blood Count 4.26 10^6/ul (4.00-5.40); Red Cell Distribution Width 14 % (10.5-15); White Blood Count 4.7 10^3/ul (3.5-10.8)
[2017-12-08 17:37] LABS: EGFR Non-African American 58.2 (>60); INR 2.65 (0.77-1.02)
--- NOTE | 2017-12-08 18:23 | RAD ---
INDICATION: Defibrillator vibrating since the previous day COMPARISON: Most recent comparison chest x-rays dated February 16, 2017 TECHNIQUE: Single AP portable view of the chest was obtained. FINDINGS: Image quality is compromised due to the relative inferiority of a portable chest x-ray. Again seen is a right chest cardiac pacemaker with a single lead overlying the heart. The heart and mediastinum exhibit normal size and contour. There is coarse calcification overlying the arch of the aorta. The lungs are grossly clear. There is no evidence of a large pleural effusion. Visualized bones are normal for the patient's age. IMPRESSION: No radiographic evidence for acute cardiopulmonary abnormality on this portable chest x-ray.
--- NOTE | 2017-12-08 23:35 | ED ---
Arin Dixon Emily, scribed for Victorina Madrid MD on 12/08/17 at 2321 . Progress - Progress Note Progress Note: Miguel Angel was here and interrogated the pacemaker, and found that the pt needs to have replacement of the device. There are three months left on the current device. Miguel Angel has contacted Dr. Fernandez and will contact Dr. Rosales in 3 days. Course/Dx - Course Course Of Treatment: Pt was signed out from Dr. Martin upon shift change pending interrogation of pacemaker. Miguel Angel was here and interrogated the pacemaker , and found that the pt needs to have replacement of the device. There are three months left on the current device. Miguel Angel has contacted Dr. Fernandez and will contact Dr. Rosales in 3 days. Pt will be discharged with follow up from PCP and cardiology. - Diagnoses Provider Diagnoses: Pacemaker complications Discharge - Sign-Out/Discharge Documenting (check all that apply): Discharge/Admit/Transfer - Discharge home, Receiving Sign-Out Receiving patient FROM: Fabiano Martin - Upon shift change pending pacemaker interrogation - Discharge Plan Condition: Stable Disposition: HOME Patient Education Materials: Pacemaker (DC) Referrals: Anusha Reed MD [Primary Care Provider] - 3 Days Sandy Fernandez MD [Medical Doctor] - 3 Days Additional Instructions: RETURN TO THE EMERGENCY DEPARTMENT FOR NEW OR WORSENING SYMPTOMS The documentation as recorded by the Arin andrea Emily accurately reflects the service I personally performed and the decisions made by Mercy ferreira Abdul, MD.
[2017-12-09 00:33] VITALS: BP 158/89
--- NOTE | 2017-12-12 06:53 | ED ---
Eamon Dixon Tiffany, scribed for Fabiano Martin MD on 12/08/17 at 1823 . Palpitations / Dysrhythmia - HPI Summary HPI Summary: 77 year old F referred by Dr. Rosales, cardiology, to [facility] complains of intermittent defibrillator vibrations since last night. Symptoms aggravated by nothing. Symptoms alleviated by nothing. Patient denies chest tightness, chest pressure, chest pain, and shortness of breath. - History of Current Complaint Chief Complaint: EDDysrhythmPalp Time Seen by Provider: 12/08/17 16:52 Hx Obtained From: Patient Onset/Duration: Lasting Days - since last night, Still Present Timing: Intermittent Episodes Lasting: Aggravating: Nothing Alleviating: Nothing - Allergy/Home Medications Allergies/Adverse Reactions: Allergies Allergy/AdvReac Type Severity Reaction Status Date / Time Iodinated Contrast- Oral and Allergy Hives Verified 12/08/17 17:02 IV Dye Penicillins Allergy Rash Verified 12/08/17 17:02 Sulfa (Sulfonamide Allergy Rash Verified 12/08/17 17:02 Antibiotics) seafood Allergy Severe Hives Uncoded 12/08/17 17:02 Home Medications: Home Medications Cholecalciferol TAB* [Vitamin D TAB*] 2,000 units PO DAILY 12/08/17 [History Confirmed 12/08/17] Cyanocobalamin TAB* [Vitamin B12 TAB*] 1,000 mcg PO DAILY 12/08/17 [History Confirmed 12/08/17] Levothyroxine TAB* [Synthroid TAB*] 50 mcg PO DAILY 12/08/17 [History Confirmed 12/08/17] Lisinopril TAB* [Prinivil TAB*] 5 mg PO QAM 12/08/17 [History Confirmed 12/08/17 ] Lisinopril TAB* [Prinivil TAB*] 10 mg PO QPM 12/08/17 [History Confirmed ] Simvastatin TAB(NF) [Zocor(NF)] 10 mg PO BEDTIME 12/08/17 [History Confirmed 11/20] PMH/Surg Hx/FS Hx/Imm Hx Previously Healthy: No Endocrine/Hematology History: Reports: Hx Anticoagulant Therapy - coumadin, Hx Thyroid Disease Denies: Hx Diabetes, Hx Anemia Cardiovascular History: Reports: Hx Auto Implanted Cardiovert Defib, Hx Hypertension, Hx Pacemaker/ICD - DR. ROSALES FOLLOWING, Other Cardiovascular Problems/Disorders - Pacer, ICD Respiratory History: Denies: Hx Asthma, Hx Chronic Obstructive Pulmonary Disease (COPD) GI History: Reports: Hx Diverticulosis, Hx Jaundice - as child, Other GI Disorders - Choley, Colon CA History: Denies: Hx Renal Disease Musculoskeletal History: Reports: Hx Arthritis, Hx Back Problems, Hx Osteoporosis Denies: Hx Rheumatoid Arthritis Sensory History: Reports: Hx Contacts or Glasses Denies: Hx Hearing Aid Opthamlomology History: Reports: Hx Contacts or Glasses Neurological History: Reports: Hx Migraine - possible occular migraines, Other Neuro Impairments/Disorders - 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 Breast CA : Left mastectomy. Ovarian CA. Hx Chemotherapy: Yes Hx Radiation Therapy: No - Surgical History Surgery Procedure, Year, and Place: HERNIATED DISK SX LUMBAR LEVEL 3-4 colon ca 2008 section removed. DEFIBRILATOR RT CHEST 2010. mastectomy left side 1980. thyroid surgery 1979. hysterectomy for ovarian cancer 2009 Hx Anesthesia Reactions: Yes - patient states she is irate when coming out Infectious Disease History: No Infectious Disease History: Reports: Hx Hepatitis - as child Denies: Hx Human Immunodeficiency Virus (HIV), History Other Infectious Disease, Traveled Outside the [place] in Last 30 Days - Family History Known Family History: Positive: Other - osteoporosis Family History: No FHx of ventricular tachycardia. - Social History Alcohol Use: None Hx Substance Use: No Substance Use Type: Reports: None Hx Tobacco Use: No Smoking Status (MU): Never Smoked Tobacco Review of Systems Negative: Fever, Chills Negative: Erythema Negative: Sore Throat Negative: Chest Pain Negative: Shortness Of Breath, Cough Negative: Abdominal Pain, Vomiting, Nausea Negative: dysuria, hematuria Negative: Myalgia, Edema Negative: Rash Neurological: Negative - Dizziness All Other Systems Reviewed And Are Negative: Yes Physical Exam - Summary Physical Exam Summary: Constitutional: Well-developed, Well-nourished, Alert. (-) Distressed Skin: Warm, Dry HENT: Normocephalic; Atraumatic Eyes: Conjunctiva normal Neck: Musculoskeletal ROM normal neck. (-) JVD, (-) Stridor, (-) Tracheal deviation Cardio: Rhythm regular, rate normal, Heart sounds normal; Intact distal pulses; The pedal pulses are 2+ and symmetric. Radial pulses are 2+ and symmetric. (-) Murmur Pulmonary/Chest wall: Effort normal. (-) Respiratory distress, (-) Wheezes, (-) Rales Abd: Soft, (-), epigastric tenderness, (-) Distension, (-) Guarding, (-) Rebound Musculoskeletal: (-) Edema Lymph: (-) Cervical adenopathy Neuro: Alert, Oriented x3 Psych: Mood and affect Normal Triage Information Reviewed: Yes Vital Signs On Initial Exam: Initial Vitals Temp Pulse Resp BP Pulse Ox 97.9 F 75 16 168/117 97 12/08/17 17:02 12/08/17 17:02 12/08/17 17:02 12/08/17 17:02 12/08/17 17:02 Vital Signs Reviewed: Yes Diagnostics - Vital Signs Vital Signs Temp Pulse Resp BP Pulse Ox 12/08/17 17:02 97.9 F 75 16 168/117 97 - Laboratory Lab Results: Lab Results 12/08/17 12/08/17 12/08/17 Range/Units 17:08 17:08 17:08 WBC 4.7 (3.5-10.8) 10^3/ul RBC 4.26 (4.00-5.40) 10^6/ul Hgb 12.9 (12.0-16.0) g/dl Hct 38 (35-47) % MCV 90 (80-97) fL MCH 30 (27-31) pg MCHC 34 (31-36) g/dl RDW 14 (10.5-15) % Plt Count 155 (150-450) 10^3/ul MPV 9.2 (7.4-10.4) um3 Neut % (Auto) 52.0 (38-83) % Lymph % (Auto) 29.7 (25-47) % Hanson % (Auto) 14.9 H (0-7) % Eos % (Auto) 2.3 (0-6) % Baso % (Auto) 1.1 (0-2) % Absolute Neuts (auto) 2.4 (1.5-7.7) 10^3/ul Absolute Lymphs (auto) 1.4 (1.0-4.8) 10^3/ul Absolute Monos (auto) 0.7 (0-0.8) 10^3/ul Absolute Eos (auto) 0.1 (0-0.6) 10^3/ul Absolute Basos (auto) 0.1 (0-0.2) 10^3/ul Absolute Nucleated RBC 0 10^3/ul Nucleated RBC % 0.1 INR (Anticoag Therapy) (0.77-1.02) APTT (26.0-36.3) seconds Sodium 139 (135-145) mmol/L Potassium 4.0 (3.5-5.0) mmol/L Chloride 105 (101-111) mmol/L Carbon Dioxide 25 (22-32) mmol/L Anion Gap 9 (2-11) mmol/L BUN 18 (6-24) mg/dL Creatinine 0.93 (0.51-0.95) mg/dL Est GFR ( Amer) 70.4 (>60) Est GFR (Non-Af Amer) 58.2 (>60) BUN/Creatinine Ratio 19.4 (8-20) Glucose 105 H (70-100) mg/dL Lactic Acid 0.9 (0.5-2.0) mmol/L Calcium 9.0 (8.6-10.3) mg/dL Total Bilirubin 0.60 (0.2-1.0) mg/dL AST 19 (13-39) U/L ALT 17 (7-52) U/L Alkaline Phosphatase 59 (34-104) U/L Troponin I 0.01 (<0.04) ng/mL Total Protein 6.9 (6.4-8.9) g/dL Albumin 4.1 (3.2-5.2) g/dL Globulin 2.8 (2-4) g/dL Albumin/Globulin Ratio 1.5 (1-3) 12/08/17 Range/Units 17:08 WBC (3.5-10.8) 10^3/ul RBC (4.00-5.40) 10^6/ul Hgb (12.0-16.0) g/dl Hct (35-47) % MCV (80-97) fL MCH (27-31) pg MCHC (31-36) g/dl RDW (10.5-15) % Plt Count (150-450) 10^3/ul MPV (7.4-10.4) um3 Neut % (Auto) (38-83) % Lymph % (Auto) (25-47) % Hanson % (Auto) (0-7) % Eos % (Auto) (0-6) % Baso % (Auto) (0-2) % Absolute Neuts (auto) (1.5-7.7) 10^3/ul Absolute Lymphs (auto) (1.0-4.8) 10^3/ul Absolute Monos (auto) (0-0.8) 10^3/ul Absolute Eos (auto) (0-0.6) 10^3/ul Absolute Basos (auto) (0-0.2) 10^3/ul Absolute Nucleated RBC 10^3/ul Nucleated RBC % INR (Anticoag Therapy) 2.65 H (0.77-1.02) APTT 42.0 H (26.0-36.3) seconds Sodium (135-145) mmol/L Potassium (3.5-5.0) mmol/L Chloride (101-111) mmol/L Carbon Dioxide (22-32) mmol/L Anion Gap (2-11) mmol/L BUN (6-24) mg/dL Creatinine (0.51-0.95) mg/dL Est GFR ( Amer) (>60) Est GFR (Non-Af Amer) (>60) BUN/Creatinine Ratio (8-20) Glucose (70-100) mg/dL Lactic Acid (0.5-2.0) mmol/L Calcium (8.6-10.3) mg/dL Total Bilirubin (0.2-1.0) mg/dL AST (13-39) U/L ALT (7-52) U/L Alkaline Phosphatase (34-104) U/L Troponin I (<0.04) ng/mL Total Protein (6.4-8.9) g/dL Albumin (3.2-5.2) g/dL Globulin (2-4) g/dL Albumin/Globulin Ratio (1-3) Result Diagrams: 12/08/17 17:08 12/08/17 17:08 Lab Statement: Any lab studies that have been ordered have been reviewed, and results considered in the medical decision making process. - Radiology CXR Radiology Interpretation Completed By: Radiologist - No radiographic evidence for acute cardiopulmonary abnormality on this portable chest x-ray. ED physician has reviewed this report. - EKG 1705 Cardiac Rate: NL - 73 BPM EKG Rhythm: Sinus Rhythm EKG Interpretation: NON STEMI Course/Dx - Course Course Of Treatment: 77 y/o F presents with intermittent defibrillator vibrations since last night. Bloodwork with no significant abnormalities. EKG negative for nonSTEMI and CXR negative for acute cardiopulmonary abnormality. Patient will be signed out Dr. Madrid at shift change, awaiting pacemaker interrogation, pending dispo. - Diagnoses Provider Diagnoses: Pacemaker complications Discharge - Sign-Out/Discharge Documenting (check all that apply): Sign-Out Patient Signing out patient TO: Victorina Madrid - awaiting pacemaker interrogation, pending dispo - Discharge Plan Referrals: Anusha Reed MD [Primary Care Provider] - The documentation as recorded by the zully, Lynn Knutson SCRIBE accurately reflects the service I personally performed and the decisions made by Veronica ferreira Jerry, MD.
== END | disposition home or self-care (01) ==
LOC: ED 16:46
DX: T82.9XXA Unspecified complication of cardiac and vascular prosthetic device, implant and graft, initial encounter (principal); Z88.0 Allergy status to penicillin; Z79.01 Long term (current) use of anticoagulants
CPT/HCPCS: 36415; 71045; 80053; 83605; 84484; 85025; 85610; 85730; 93005; 99283

== ENCOUNTER → 2017-12-25 12:06 | Day surgery (SDC) | payer MEDICARE, OTHER ==
[~2017-12-25 12:06] MED LIST: Clindamycin 600 MG IVPREMIX(* 600 MG/50 ML SDV IV ONE; Lidocaine 1% INJ* 10 MG/ML 30 ML SDV ONE; Midazolam* 1 MG/ML 5 ML VIAL (5 MG) ONE; fentaNYL* 50 MCG/ML 2 ML VIAL (100 MCG VIAL) ONE
[2017-12-25 13:42] LABS: INR 1.99 (0.77-1.02)
--- NOTE | 2017-12-26 03:27 | OP ---
CC: Dr. Anusha Reed * DATE OF OPERATION: 12/25/17 - [facility] CATH DATE OF : 36. SURGEON: Dung Rosales M.D. ANESTHESIA: Local anesthesia with conscious sedation. PRE-OP DIAGNOSIS: Ventricular tachycardia, ICD at elective replacement indicator. POST-OP DIAGNOSIS: Ventricular tachycardia, ICD at elective replacement indicator. OPERATIVE PROCEDURE: Single-chamber ICD generator change. ESTIMATED BLOOD LOSS: None. COMPLICATIONS: None. INDICATIONS: The patient is a 77-year-old female with a history of idiopathic ventricular tachycardia. She had an ICD implanted in 2008. She has been followed by our office. The patient's ICD reached elective replacement indicator, generator change was recommended. The patient does have a Riata, she believes that was on advisement from the FDA , this was interrogated and noted to be functioning normally. DESCRIPTION OF PROCEDURE: The patient was brought to the operating room in a fasting state. Informed consent had been obtained prior to the procedure. All labs were reviewed. The patient was placed supine on the procedure table. Her Coumadin level was continued for this procedure. The patient's right pectoral area was prepped and draped in the usual fashion. 1% lidocaine was used for local anesthesia. A 4-cm incision was made along the previous incision line. Blunt dissection was carried down to the fibrous sheath. The fibrous sheath was opened and the ICD was removed from the pocket. It was detached from the ventricular lead. A new generator was attached to the ventricular lead. It was placed back into the pocket. The incision was closed in three layers. The patient tolerated the procedure well. No complications. The implanted device is a [employer], model [id number], serial number [id number]. [id number]/[facility] #: [id number] [facility]
== END | disposition home or self-care (01) ==
LOC: CHICATH 12:06
PROVIDERS: ATTEND Specialist
DX: I47.2 Ventricular tachycardia (principal); Z45.02 Encounter for adjustment and management of automatic implantable cardiac defibrillator; I42.8 Other cardiomyopathies; R07.9 Chest pain, unspecified; Z79.01 Long term (current) use of anticoagulants; Z85.3 Personal history of malignant neoplasm of breast; Z85.038 Personal history of other malignant neoplasm of large intestine; Z85.43 Personal history of malignant neoplasm of ovary; I08.1 Rheumatic disorders of both mitral and tricuspid valves; Z87.891 Personal history of nicotine dependence
CPT/HCPCS: 33262; 36415; 85610; 88300; 99156; 99157; C1722; J2250; J3010

== ENCOUNTER 2018-09-18 03:06 | Emergency (ER) | payer MEDICARE, OTHER ==
[2018-09-18] MEDS ORDERED: NS 0.9% 1000 ML** 1,000 ML IV ONE (03:43)
[2018-09-18] MEDS ORDERED: fentaNYL* 50 MCG/ML 2 ML VIAL (100 MCG VIAL) IV SLOW PU ONE (03:44)
[2018-09-18] MEDS ORDERED: Ondansetron INJ* 2 MG/ML VIAL IV ONE (03:44)
--- NOTE | 2018-09-18 03:49 | ED ---
Complex/Multi-Sys Presentation - HPI Summary HPI Summary: Patient is a 77 y/o F presenting to ED with complaints of abdominal pain and left shoulder/upper back pain. Patient has pancreatic cancer for which she had surgery at [facility] within the past week. She was given an epidural for three days after the surgery. This was discontinued and she was placed on PO pain medication. However, she states that she has a difficult swallowing her pain medications. Patient states that she has been experiencing abdominal pain for the past week. However, when patient returned to [place] this evening, she reports experiencing an exacerbation of her abdominal pain. She also notes acute onset of back left shoulder pain and a "burning spot" under the left armpit. Pain is aggravated by deep breaths but denies SOB. Patient's notes that patient has defib at left upper shoulder is reported. On triage, pain is rated 7/10, nothing is noted to aggravate/alleviate Sx, and it is noted that the patient took 5 mg oxycodone at 2300 09/17/18. Home medications and allergies are reviewed. - History Of Current Complaint Chief Complaint: EDGeneral Time Seen by Provider: 09/18/18 03:27 Hx Obtained From: Patient Onset/Duration: Lasting Weeks - abdominal pain, Still Present, Worse Since - this evening Timing: Constant, Hours - worse abdominal pain, left shoulder/upper back pain, Weeks - abdominal pain Severity Currently: Severe - 7/10 Severity Initially: Moderate Location: Pain At: - abdomen, left shoulder, left armpit, left upper back Aggravating Factor(s): nothing Alleviating Factor(s): nothing Associated Signs And Symptoms: Positive: Abdominal Pain, Back Pain - left upper , Other - left shoulder pain, "burning spot" at left armpit. Negative: SOB - Allergies/Home Medications Allergies/Adverse Reactions: Allergies Allergy/AdvReac Type Severity Reaction Status Date / Time Iodinated Contrast- Oral and Allergy Hives Verified 09/18/18 03:31 IV Dye Penicillins Allergy Rash Verified 09/18/18 03:31 Sulfa (Sulfonamide Allergy Rash Verified 09/18/18 03:31 Antibiotics) seafood Allergy Severe Hives Uncoded 09/18/18 03:31 Home Medications: Home Medications Acetaminophen [Tylenol] 1 - 2 tab PO SEE INSTRUCTIONS PRN 09/18/18 [History Confirmed 09/18/18] Docusate Sodium [Colace] 100 mg PO SEE INSTRUCTIONS PRN 09/18/18 [History Confirmed 09/18/18] Pantoprazole TAB * [Protonix TAB*] 40 mg PO DAILY 09/18/18 [History Confirmed ] Rivaroxaban TAB(*) [Xarelto 10 mg (*)] 10 mg PO DAILY 09/18/18 [History Confirmed 09/18/18] oxyCODONE TAB* [Roxycodone TAB 5 mg*] 5 mg PO Q6H PRN 09/18/18 [History Confirmed 09/18/18] PMH/Surg Hx/FS Hx/Imm Hx Endocrine/Hematology History: Reports: Hx Anticoagulant Therapy - coumadin, Hx Thyroid Disease Denies: Hx Diabetes, Hx Anemia Cardiovascular History: Reports: Hx Auto Implanted Cardiovert Defib, Hx Hypertension, Hx Pacemaker/ICD - DR. CABALLERO FOLLOWING, Other Cardiovascular Problems/Disorders - Pacer, ICD Respiratory History: Denies: Hx Asthma, Hx Chronic Obstructive Pulmonary Disease (COPD) GI History: Reports: Hx Diverticulosis, Hx Jaundice - as child, Other GI Disorders - Choley, Colon CA History: Denies: Hx Renal Disease Musculoskeletal History: Reports: Hx Arthritis, Hx Back Problems, Hx Osteoporosis Denies: Hx Rheumatoid Arthritis Sensory History: Reports: Hx Contacts or Glasses Denies: Hx Hearing Aid Opthamlomology History: Reports: Hx Contacts or Glasses Neurological History: Reports: Hx Migraine - possible occular migraines, Other Neuro Impairments/Disorders - 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 Breast CA : Left mastectomy. Ovarian CA. Hx Chemotherapy: Yes Hx Radiation Therapy: No - Surgical History Surgery Procedure, Year, and Place: HERNIATED DISK SX LUMBAR LEVEL 3-4 colon ca 2009 section removed. DEFIBRILATOR RT CHEST 2010. mastectomy left side 1980. thyroid surgery 1979. hysterectomy for ovarian cancer 2009 Hx Anesthesia Reactions: Yes - patient states she is irate when coming out Infectious Disease History: No Infectious Disease History: Reports: Hx Hepatitis - as child Denies: Hx Human Immunodeficiency Virus (HIV), History Other Infectious Disease, Traveled Outside the [place] in Last 30 Days - Family History Known Family History: Positive: Other - osteoporosis Family History: No FHx of ventricular tachycardia. - Social History Alcohol Use: None Hx Substance Use: No Substance Use Type: Reports: None Hx Tobacco Use: No Smoking Status (MU): Never Smoked Tobacco Review of Systems ENT: Other - difficulty swallowing pain medication Negative: Shortness Of Breath Positive: Abdominal Pain Musculoskeletal: Other - POSITIVE - LEFT SHOULDER PAIN/LEFT UPPER BACK PAIN, "BURNING SPOT" UNDER LEFT ARMPIT All Other Systems Reviewed And Are Negative: Yes Physical Exam - Summary Physical Exam Summary: VITAL SIGNS: Reviewed. GENERAL: Patient is a well-developed and nourished female who is lying comfortable in the stretcher. Patient is not in any acute respiratory distress. HEAD AND FACE: No signs of trauma. No ecchymosis, hematomas or skull depressions. No sinus tenderness. EYES: PERRLA, EOMI x 2, No injected conjunctiva, no nystagmus. EARS: Hearing grossly intact. Ear canals and tympanic membranes are within normal limits. MOUTH: Oropharynx within normal limits. NECK: Supple, trachea is midline, no adenopathy, no JVD, no carotid bruit, no c- spine tenderness, neck with full ROM. CHEST: Symmetric, no tenderness at palpation LUNGS: Clear to auscultation bilaterally. No wheezing or crackles. CVS: tachycardic, S1 and S2 present, no murmurs or gallops appreciated. ABDOMEN: Soft, non-tender. No signs of distention. No rebound no guarding, and no masses palpated. Bowel sounds are normal. EXTREMITIES: FROM in all major joints, no edema, no cyanosis or clubbing. NEURO: Alert and oriented x 3. No acute neurological deficits. Speech is normal and follows commands. SKIN: Dry and warm; midline incision at abdomen with oneal in place, wound is okay, healing well, no sign of infection; there is an ecchymotic area at the lower part of the incision Triage Information Reviewed: Yes Vital Signs On Initial Exam: Initial Vitals Temp Pulse Resp BP Pulse Ox 98.6 F 100 20 180/74 100 09/18/18 03:18 09/18/18 03:18 09/18/18 03:18 09/18/18 03:18 09/18/18 03:18 Vital Signs Reviewed: Yes Diagnostics - Vital Signs Vital Signs Temp Pulse Resp BP Pulse Ox 09/18/18 03:18 98.6 F 100 20 180/74 100 - Laboratory Result Diagrams: 09/18/18 03:59 09/18/18 03:59 Lab Statement: Any lab studies that have been ordered have been reviewed, and results considered in the medical decision making process. - CT CTA chest/abdomen/pelvis CT Interpretation Completed By: Radiologist Summary of CT Findings: IMPRESSION: 1. Cholecystectomy. 2. 2 low density hepatic lesions, probably cysts. 3. Moderate gastric distention. 4. Soft tissue changes in the region of the antrum may be related to previous. gastric surgery. 5. Postsurgical changes in the region of the cecum. 6. Hysterectomy. 7. 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 relationship to L5. 8. Mild to moderate arthrosclerotic changes, as described above. This report was reviewed by ED physician. - EKG 0434 Cardiac Rate: NL - rate of 96 BPM EKG Rhythm: Sinus Rhythm Ectopy: PVCs Summary of EKG Findings: EKG showed sinus rhythm with rate of 96 BPM with PVCs. Re-Evaluation - Re-Evaluation First Eval Re-Evaluation Time: 06:08 Comment: Results of labs and tests were discussed with patient. She will be discharged to home, follow up with PCP. Patient is agreeable with this. Complex Multi-Symp Course/Dx Course Of Treatment: Patient is a 77 y/o F presenting to ED with complaints of abdominal pain and left shoulder/upper back pain. Patient has pancreatic cancer for which she had surgery at [facility] within the past week. She was given an epidural for three days after the surgery. This was discontinued and she was placed on PO pain medication. However, she states that she has a difficult swallowing her pain medications. Patient states that she has been experiencing abdominal pain for the past week. However, when patient returned to [place] this evening, she reports experiencing an exacerbation of her abdominal pain. She also notes acute onset of back left shoulder pain and a "burning spot" under the left armpit. Pain is aggravated by deep breaths but denies SOB. On physical exam, it is noted that there is a midline incision at abdomen with oneal in place, wound is okay, healing well, no sign of infection ; there is an ecchymotic area at the lower part of the incision. Patient is tachycardic. EKG showed sinus rhythm with rate of 96 BPM with PVCs. Labs showed RBC 3.62, Hgb 11.2, absolute lymphs 0.7, chloride 99, BUN/creatinine ratio 24.7, glucose 117, lactic acid 0.9, AST 43, ALT 55, CRP 43.24, amylase 20 , lipase 16. CTA chest/abdomen/pelvis IMPRESSION: 1. Cholecystectomy. 2. 2 low density hepatic lesions, probably cysts. 3. Moderate gastric distention. 4. Soft tissue changes in the region of the antrum may be related to previous. gastric surgery. 5. Postsurgical changes in the region of the cecum. 6. Hysterectomy. 7. 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 relationship to L5. 8. Mild to moderate arthrosclerotic changes, as described above. During ED course, patient received fluids, Zofran 8 mg IV, solu-medrol 125 mg IV, fentanyl 50 mcg IV, Benadryl 25 mg SLOW PUSH IV. Results of labs and tests were discussed with patient. As patient has been having difficulty swallowing her pain medications, she will be prescribed liquid oxycodone. She will be discharged to home, follow up with PCP and oncologist. Patient is agreeable with this. - Diagnoses Provider Diagnoses: Postoperative abdominal pain Discharge - Sign-Out/Discharge Documenting (check all that apply): Patient Departure - discharge Patient Received Moderate/Deep Sedation with Procedure: No - Discharge Plan Condition: Stable Disposition: HOME Prescriptions: oxyCODONE ORAL.SOLN* [Oxycodone ORAL.SOLN 5 mg/5 ml *] 5 mg PO Q4H PRN #120 ml MDD 30 ml PRN Reason: Pain Patient Education Materials: Abdominal Pain (ED) Referrals: Anusha Reed MD [Primary Care Provider] - 3 Days Wally Conde MD [Medical Doctor] - 3 Days Additional Instructions: PLEASE RETURN TO THE EMERGENCY DEPARTMENT IMMEDIATELY FOR WORSENING OR CONCERNING SYMPTOMS. FOLLOW UP WITH YOUR PRIMARY CARE PHYSICIAN AND ONCOLOGIST WITHIN THREE DAYS. - Attestation Statements Document Initiated by Scribe: Yes Documenting Scribe: CELESTINA LOFTON Provider For Whom Scribe is Documenting (Include Credential): JUWAN WAKEFIELD MD Scribe Attestation: I, CELESTINA LOFTON, scribed for JUWAN WAKEFIELD MD on 09/18/18 at 0616. Status of Scribe Document: Ready
[2018-09-18] MEDS ORDERED: methylPREDNISolone 125 MG* 2 ML VIAL IV ONE (03:57)
[2018-09-18] MEDS ORDERED: diPHENhydraMINE IV* 50 MG/ML 1 ml VIAL (BENADRYL) SLOW PUSH ONE (03:58)
[2018-09-18] MEDS ORDERED: Acetaminophen TAB* 325 MG PO ONE (03:58)
[2018-09-18 04:06] LABS: Hematocrit 33 % (33-41); Hemoglobin 11.2 g/dL (12.0-16.0); Mean Corpuscular HGB Conc 34 g/dL (31-36); Mean Corpuscular Hemoglobin 31 pg (27-31); Mean Corpuscular Volume 91 fL (80-97); Mean Platelet Volume 8.3 fL (7.4-10.4); Platelet Count 253 10^3/uL (150-450); Red Blood Count 3.62 10^6 /uL (3.70-4.87); Red Cell Distribution Width 14 % (10.5-15); White Blood Count 6.7 10^3/uL (3.5-10.8)
[2018-09-18 04:25] LABS: Albumin 3.7 g/dL (3.2-5.2); Albumin/Globulin Ratio 1.3 (1-3); BUN/Creatinine Ratio 24.7 (8-20); C Reactive Protein 43.24 mg/L (<8.01); Calcium 8.9 mg/dL (8.6-10.3); EGFR African American 93.1 (>60); EGFR Non-African American 76.9 (>60); Globulin 2.8 g/dL (2-4); INR 0.98 (0.77-1.02); Magnesium 1.9 mg/dL (1.9-2.7); Potassium 3.5 mmol/L (3.5-5.0); Total Bilirubin 0.5 mg/dL (0.2-1.0); Total Protein 6.5 g/dL (6.4-8.9)
[2018-09-18 04:41] LABS: ABS Basophils 0 10^3/ul (0-0.2); ABS Eosinophils 0 10^3/ul (0-0.6); ABS Lymphocytes 0.7 10^3/ul (1.0-4.8); ABS Monocytes 0.6 10^3/ul (0-0.8); ABS Neutrophils 5.3 10^3/ul (1.5-7.7); ABS Nucleated RBC 0 10^3/ul; Eosinophil % 0.5 %; Lymphocyte % 10.7 %; Nucleated Red Blood Cells % 0.1
[2018-09-18] MEDS ORDERED: Iohexol 350* (CONTRAST) 500 ML MDV IV ONE (05:01)
[2018-09-18 06:28] LABS: Urine Appearance Clear; Urine Bilirubin Negative (Negative); Urine Blood Negative (Negative); Urine Color Straw; Urine Glucose Negative (Negative); Urine Ketones 2+ (Negative); Urine Nitrite Negative (Negative); Urine Protein Negative (Negative); Urine Specific Gravity 1.031 (1.010-1.030); Urine Urobilinogen Negative (Negative)
[2018-09-18 07:11] VITALS: BP 179/96
== END 2018-09-18 07:14 | disposition home or self-care (01) ==
LOC: ED 03:06
DX: G89.18 Other acute postprocedural pain (principal); R10.9 Unspecified abdominal pain; I10 Essential (primary) hypertension; E07.9 Disorder of thyroid, unspecified; F41.9 Anxiety disorder, unspecified; Z79.01 Long term (current) use of anticoagulants; Z95.0 Presence of cardiac pacemaker; Z88.0 Allergy status to penicillin; Z88.2 Allergy status to sulfonamides
CPT/HCPCS: 36415; 71275; 74177; 80053; 81003; 82150; 83605; 83690; 83735; 85025; 85610; 85730; 86140; 93005; 96361; 96374; 96375; 96376; 99284; A9270-GY; J1200; J2405; J2930; J3010; Q9967

== ENCOUNTER 2018-09-18 14:36 | Inpatient (IN) | payer MEDICARE, OTHER ==
[2018-09-18] MEDS ORDERED: Pantoprazole IV* 40 MG IV ONE (15:06)
[2018-09-18] MEDS ORDERED: NS 0.9% 1000 ML** 1,000 ML IV ONE (15:06)
[2018-09-18] MEDS ORDERED: Metoclopramide IV* 5 MG/ML 2 ML VIAL IV ONE (15:07)
--- NOTE | 2018-09-18 15:12 | ED ---
GI/ HPI - HPI Summary HPI Summary: A 77 y/o female accompanied by her presents to [facility] with a chief complaint of vomiting post surgery on 09/10/18. She claims that she has not been able to drink fluids or take her pain pills. She has since felt weak and nauseous constantly. She also c/o abdominal pain and describes her pain as burning. She rates her pain as a 7/10 in severity. She was recently discharged but she came back to the ED due to her symptoms still being present and her claiming that he is not able to take care of her properly. She tried Tums but that did not alleviate her symptoms. - History of Current Complaint Chief Complaint: EDGeneral Time Seen by Provider: 09/18/18 14:57 Stated Complaint: GENERAL ILLNESS PER PT Hx Obtained From: Patient, Family/Sprue Knocker Onset/Duration: Started Days Ago, Still Present Timing: Constant, Lasting Days Severity: Moderate Current Severity: Moderate Pain Intensity: 7 - out of 10 Location of Pain: Diffuse Pain Characteristics: Burning Associated Signs and Symptoms: Positive: Nausea, Abdominal Pain. Negative: Fever - Additional Pertinent History Primary Care Physician: [id number] - Allergy/Home Medications Allergies/Adverse Reactions: Allergies Allergy/AdvReac Type Severity Reaction Status Date / Time Iodinated Contrast- Oral and Allergy Hives Verified 09/18/18 14:53 IV Dye Penicillins Allergy Rash Verified 09/18/18 14:53 Sulfa (Sulfonamide Allergy Rash Verified 09/18/18 14:53 Antibiotics) seafood Allergy Severe Hives Uncoded 09/18/18 14:53 PMH/Surg Hx/FS Hx/Imm Hx Endocrine/Hematology History: Reports: Hx Anticoagulant Therapy - coumadin, Hx Thyroid Disease Denies: Hx Diabetes, Hx Anemia Cardiovascular History: Reports: Hx Auto Implanted Cardiovert Defib, Hx Hypertension, Hx Pacemaker/ICD - DR. ADA YU, Other Cardiovascular Problems/Disorders - Pacer, ICD Respiratory History: Denies: Hx Asthma, Hx Chronic Obstructive Pulmonary Disease (COPD) GI History: Reports: Hx Diverticulosis, Hx Jaundice - as child, Other GI Disorders - Choley, Colon CA History: Denies: Hx Renal Disease Musculoskeletal History: Reports: Hx Arthritis, Hx Back Problems, Hx Osteoporosis Denies: Hx Rheumatoid Arthritis Sensory History: Reports: Hx Contacts or Glasses Denies: Hx Hearing Aid Opthamlomology History: Reports: Hx Contacts or Glasses Neurological History: Reports: Hx Migraine - possible occular migraines, Other Neuro Impairments/Disorders - 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 Breast CA : Left mastectomy. Ovarian CA. Hx Chemotherapy: Yes Hx Radiation Therapy: No - Surgical History Surgery Procedure, Year, and Place: HERNIATED DISK SX LUMBAR LEVEL 3-4 colon ca 2009 section removed. DEFIBRILATOR RT CHEST 2010. mastectomy left side 1980. thyroid surgery 1979. hysterectomy for ovarian cancer 2009 Hx Anesthesia Reactions: Yes - patient states she is irate when coming out Infectious Disease History: No Infectious Disease History: Reports: Hx Hepatitis - as child Denies: Hx Human Immunodeficiency Virus (HIV), History Other Infectious Disease, Traveled Outside the [place] in Last 30 Days - Family History Known Family History: Positive: Other - osteoporosis Family History: No FHx of ventricular tachycardia. - Social History Alcohol Use: None Hx Substance Use: No Substance Use Type: Reports: None Hx Tobacco Use: No Smoking Status (MU): Never Smoked Tobacco Review of Systems Negative: Fever Positive: Abdominal Pain, Vomiting, Nausea Positive: Weakness All Other Systems Reviewed And Are Negative: Yes Physical Exam - Summary Physical Exam Summary: Appearance: The patient is well-nourished in no acute distress and in no acute pain. Skin: The skin is warm and dry and skin color reflects adequate perfusion. HEENT: The head is normocephalic and atraumatic. The pupils are equal and reactive. The conjunctivae are clear and without drainage. Nares are patent and without drainage. Mouth reveals moist mucous membranes and the throat is without erythema and exudate. The external ears are intact. The ear canals are patent and without drainage. The tympanic membranes are intact. Neck: The neck is supple with full range of motion and non-tender. There are no carotid bruits. There is no neck vein distension. Respiratory: Chest is non-tender. Lungs are clear to auscultation and breath sounds are symmetrical and equal. Cardiovascular: Heart is regular rate and rhythm. There is no murmur or rub auscultated. There is no peripheral edema and pulses are symmetrical and equal. Abdomen: The abdomen is tender. There are normal bowel sounds heard in all four quadrants and there is no organomegaly palpated. Musculoskeletal: There is no back tenderness noted. Extremities are non-tender with full range of motion. There is good capillary refill. There is no peripheral edema or calf tenderness elicited. Neurological: Patient is alert and oriented to person, place and time. The patient has symmetrical motor strength in all four extremities. Cranial nerves are grossly intact. Deep tendon reflexes are symmetrical and equal in all four extremities. Psychiatric: The patient has an appropriate affect and does not exhibit any anxiety or depression. Triage Information Reviewed: Yes Vital Signs On Initial Exam: Initial Vitals Temp Pulse Resp BP Pulse Ox 97.6 F 90 18 159/90 97 09/18/18 14:49 09/18/18 14:49 09/18/18 14:49 09/18/18 14:49 09/18/18 14:49 Vital Signs Reviewed: Yes Diagnostics - Vital Signs Vital Signs Temp Pulse Resp BP Pulse Ox 09/18/18 14:49 97.6 F 90 18 159/90 97 - Laboratory Result Diagrams: 09/18/18 15:06 09/18/18 15:06 Lab Statement: Any lab studies that have been ordered have been reviewed, and results considered in the medical decision making process. GIGU Course/Dx - Course Course Of Treatment: Real, I was unable to improve Ms. Good's symptoms here in the emergency department in spite of using parenteral medications and giving her more IV fluid. I spoke with Dr. Durán for the hospitalist about admitting her. - Diagnoses Provider Diagnoses: Intractable abdominal pain, Intractable vomiting - Physician Notifications Discussed Care Of Patient With: Gume Durán Time Discussed With Above Provider: 18:24 Instructed by Provider To: Admit As Inpatient Discharge - Sign-Out/Discharge Documenting (check all that apply): Patient Departure - admit Patient Received Moderate/Deep Sedation with Procedure: No - Discharge Plan Condition: Fair Disposition: ADMITTED TO [facility] Referrals: Anusha Reed MD [Primary Care Provider] - - Billing Disposition and Condition Condition: FAIR Disposition: Admitted to [facility] - Attestation Statements Document Initiated by Scribe: Yes Documenting Scribe: Deo Gooden Provider For Whom Scribe is Documenting (Include Credential): Rick Karimi MD Scribe Attestation: IDeo, scribed for Rick Karimi MD on 09/18/18 at 1827. Scribe Documentation Reviewed: Yes Provider Attestation: The documentation as recorded by the scribe, Deo Gooden accurately reflects the service I personally performed and the decisions made by me, Rick Karimi MD Status of Scribe Document: Viewed
[2018-09-18 16:12] LABS: ABS Basophils 0 10^3/ul (0-0.2); ABS Eosinophils 0 10^3/ul (0-0.6); ABS Lymphocytes 0.7 10^3/ul (1.0-4.8); ABS Monocytes 0.6 10^3/ul (0-0.8); ABS Neutrophils 7.3 10^3/ul (1.5-7.7); ABS Nucleated RBC 0 10^3/ul; Eosinophil % 0 %; Hematocrit 34 % (33-41); Hemoglobin 11.3 g/dL (12.0-16.0); Lymphocyte % 8.5 %; Mean Corpuscular HGB Conc 33 g/dL (31-36); Mean Corpuscular Hemoglobin 31 pg (27-31); Mean Corpuscular Volume 92 fL (80-97); Mean Platelet Volume 8.8 fL (7.4-10.4); Nucleated Red Blood Cells % 0; Platelet Count 300 10^3/uL (150-450); Red Blood Count 3.69 10^6 /uL (3.70-4.87); Red Cell Distribution Width 15 % (10.5-15); White Blood Count 8.7 10^3/uL (3.5-10.8)
[2018-09-18 16:27] LABS: Albumin 3.9 g/dL (3.2-5.2); Albumin/Globulin Ratio 1.3 (1-3); BUN/Creatinine Ratio 19.7 (8-20); C Reactive Protein 43.52 mg/L (<8.01); EGFR African American 88.8 (>60); EGFR Non-African American 73.4 (>60); Potassium 3.6 mmol/L (3.5-5.0); Total Bilirubin 0.5 mg/dL (0.2-1.0); Total Protein 6.9 g/dL (6.4-8.9)
[2018-09-18] MEDS ORDERED: Sucralfate TAB* 1 GM PO ONE (16:40)
[2018-09-18] MEDS ORDERED: Ondansetron INJ* 2 MG/ML VIAL IV ONE (17:36)
[2018-09-18] MEDS ORDERED: Morphine 10 MG/ML VIAL (1 ml) IV ONE (18:02)
[2018-09-18] MEDS ORDERED: Famotidine IV* 10 MG/ML 2 ML (20 mg) IV SLOW PU ONE (20:29)
[2018-09-18] MEDS ORDERED: Docusate CAP* 100 MG PO PRN (20:29)
[2018-09-18] MEDS ORDERED: oxyCODONE ORAL.SOLN* 5 MG/5 ML UDC PO PRN (20:29)
[2018-09-18] MEDS ORDERED: fentaNYL* 50 MCG/ML 2 ML VIAL (100 MCG VIAL) IV SLOW PU PRN (20:30)
[2018-09-18] MEDS ORDERED: Ketorolac INJ* 15 MG/ML 1 ML VIAL IV PUSH PRN (20:31)
[2018-09-18] MEDS ORDERED: PROCHLORPERAZINE INJ 5 MG/ML 2 ML VIAL ONE (20:37)
[2018-09-18] MEDS: PROCHLORPERAZINE INJ 5 MG/ML 2 ML VIAL IV PRN (20:42)
[2018-09-18] MEDS: Lidocaine 2% VISCOUS* 15 ML UDC SWISH SWAL ONE ×2 (20:49→20:51)
[2018-09-18] MEDS: Al Hydrox/Mg Hydrox/Simet LIQ* 30 ML UDC PO ONE ×2 (20:49→20:51)
[2018-09-18] MEDS: Ondansetron INJ* 2 MG/ML VIAL IV PRN (21:32)
[2018-09-18] MEDS: NS 0.9% 1000 ML** 1,000 ML IV SCH (21:40)
[2018-09-18] MEDS ORDERED: Rivaroxaban TAB(*) 10 MG PO SCH (22:00)
[2018-09-18] MEDS ORDERED: Metoprolol Tartrate IV* 1 MG/ML 5 ML VIAL IV PRN ×2 (22:04→23:11)
[2018-09-18] MEDS ORDERED: Metoprolol Tartrate IV* 1 MG/ML 5 ML VIAL ONE (22:12)
[2018-09-18] MEDS: Metoprolol Succinate XL TAB* 50 MG PO SCH (22:17)
[2018-09-18] MEDS: Atorvastatin* 10 MG TAB PO SCH (22:17)
[2018-09-18] MEDS: Lisinopril TAB* 10 MG PO SCH (22:17)
--- NOTE | 2018-09-18 23:19 | HP ---
HISTORY AND PHYSICAL: DATE OF ADMISSION: 09/18/18 PRIMARY CARE PROVIDER: Anusha Reed MD. ELECTRONIC WARFARE LINGUIST: Moy Good, patient's . CHIEF COMPLAINT: Epigastric pain and nausea. REASON FOR ADMISSION: Pain control. CODE STATUS: Full. HPI: Obtained from patient and review of chart HISTORY OF PRESENT ILLNESS: 77-year-old female with a past medical history of nonischemic cardiomyopathy, history of V-tach; status post AICD placement, history of Lane syndrome with breast; ovarian; colon; and recently diagnosed uncinate process pancreatic cancer, status post partial pancreatectomy at [facility] on , recently discharged and returned home to [place] on 09/17/18, who is presenting to the emergency room for 24 hours of abdominal pain, nausea, and heartburn-like symptoms. She has been to the emergency room 2 times in the last 48 hours and reports that essentially since she has been discharged home, she has had a central burning esophageal abdominal pain that radiates upwards towards her mouth and down towards her left upper quadrant that has been relieved by nothing thus far, that also causes some dry heaves, and then has had 1 episode of emesis at home described to be sukhwinder brown and green in color. She also reports that since the procedure she has had bloaty abdominal pain and left shoulder pain as well. As a result of this pain and nausea, she has been unable to hold down fluids or food and unable to take her p.o. pain medications and thus has returned to the emergency room for further evaluation and treatment. She is passing flatus and has had 1 small, but normal-described bowel movement since she has been home roughly about 6 hours ago. She denies valente bilious vomiting. She denies fevers or chills, valente hematemesis, melena, headache, vision changes, chest pain, shortness of breath, confusion. EMERGENCY ROOM COURSE: Blood pressure is 180/90 when she presents, heart rate is 104, respiration rate 19, afebrile. Labs show unremarkable H and H; save for mild anemia to 11, and largely unremarkable CMP. Imaging done on prior presentation at the ER with CTA of abdomen, chest, and pelvis that shows no acute actionable pathology, although chronic postsurgical changes. An abdominal radiograph was done this evening on 09/18/18 that shows no air-fluid or transition point. UA was done which was with ketones only. An EKG was performed earlier during her first hospitalization which showed sinus rhythm with VPCs. No evidence of acute ischemia and a QTc of 496. She was given Benadryl, fentanyl, Reglan and the hospitalist team was asked to evaluate the patient for pain control and fluid resuscitation under observation status. PAST MEDICAL HISTORY: 1. Lane syndrome with history of breast, ovarian, colon and pancreatic cancer , status post recent partial pancreatectomy at [facility] exactly 1 week ago. 2. History of DVT, on anticoagulation. 3. History of TIA. 4. Hypothyroidism. 5. OA and osteoporosis. 6. History of nonischemic cardiomyopathy with last ejection fraction of 45% to 50%. 7. History of ventricular tachycardia, status post AICD placement. PAST SURGICAL HISTORY: 1. Partial thyroidectomy. 2. Left mastectomy. 3. AICD placement. 4. Status post cholecystectomy. 5. Partial colectomy. 6. Status post total abdominal hysterectomy and bilateral salpingo- oophorectomy. 7. Status post partial pancreatectomy on 09/10/18. MEDICATIONS: 1. Acetaminophen 325 to 650 mg p.o. q.6 hours p.r.n. for pain. 2. Oxycodone 5 mg p.o. q.6 hours for pain. 3. Pantoprazole 40 mg p.o. daily. 4. Docusate 100 mg p.o. nightly. 5. Levothyroxine 50 mcg p.o. daily. 6. Cytomel tab 10 mcg p.o. daily. 7. Lisinopril 5 mg p.o. q.a.m. and 10 mg p.o. q.p.m. 8. Metoprolol succinate 50 mg p.o. b.i.d. 9. Oxycodone oral solution 5 mg p.o. q.4 hours. 10. Rivaroxaban 10 mg p.o. daily. 11. Simvastatin 10 mg p.o. q.h.s. ALLERGIES: For DYE, PENICILLIN, SULFA, and SEAFOOD. FAMILY HISTORY: Her mother also with numerous cancers and history of documented Lane syndrome. Her father is, otherwise, well. SOCIAL HISTORY: She is a tobacco lifetime nonuser. Alcohol: Nonuser. Illicits: Lifetime nonuser. 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 REVIEW OF SYSTEMS: The patient denies fevers, chills. Does endorse malaise. HEENT: Denies vision changes, headaches, oral pain, sore throat. Cardiovascular: Denies chest pain, palpitations, or orthopnea. Respiratory: Denies shortness of breath, cough, or pleuritic chest pain. GI: Does endorse nausea, 1 episode of vomiting. Denies diarrhea or constipation. Does endorse central GERD-like abdominal pain with radiation up towards mouth and to left upper quadrant. : Denies dysuria or hematuria. Musculoskeletal: Mild myalgias and arthralgias in left upper shoulder, but otherwise negative. No valente [id number]-[id number] altering weakness. Skin: Denies new rashes or lesions. Neurologic: Denies focal weakness or numbness. Psychiatric: Does endorse worsening depression and anxiety, but no hopelessness, suicidal or homicidal ideation. Endocrine: Denies polyuria or polydipsia. Heme: Denies easy bruising, bleeding, or lymphadenopathy. PHYSICAL EXAMINATION GENERAL APPEARANCE: This is a pleasant, soft-spoken woman, sitting up in bed, in no acute distress, at times endorsing depression and tearful. VITAL SIGNS: At the time of physical exam, blood pressure 167/87, heart rate 87 , respiratory rate 15, satting 96% on room air, afebrile. HEENT: She has PERRLA. Extraocular muscles are intact. She has dry mucous membranes. NECK: Supple with no supraclavicular or cervical lymphadenopathy. RESPIRATORY: Her chest is clear to auscultation bilaterally. CARDIAC: She has regular rhythm with minor ectopy with no murmurs, rubs, or gallops. AICD pocket is clean, dry, and intact. GI: She has a clean, dry and intact well-healing surgical scar from periumbilicus to upper pelvis with oneal with bruising bilaterally. No valente tenderness to palpation. No distention. No rebound. No guarding. Hypoactive bowel sounds. No other tenderness to palpation in right upper or left upper quadrant. No organomegaly appreciated. SKIN: She has no new rashes or areas of breakdown, other than abdominal findings as described above. MUSCULOSKELETAL: She moves all 4 extremities spontaneously. EXTREMITIES: She has 2+ palpable pulses in bilateral DPs. She has no edema. NEURO: Cranial nerves II through XII are intact. She has no focal weakness. DIAGNOSTIC STUDIES/LAB DATA: CBC shows white blood cell count of 8.7, hemoglobin 11.3, hematocrit 34, platelets 300. CMP with sodium 140, potassium 3.6, chloride 99, carbon dioxide 28, BUN 15, creatinine 0.7, glucose 120, lactic acid 1.2. AST 38, ALT 54, alkaline phosphatase 91. A UA was done which showed clear urine with 2+ ketones. Imaging done included a abdominal and chest x-ray that was performed that showed no air-fluid levels or transition point. A CTA of chest, abdomen, and pelvis was done earlier on 09/18/18 which showed no acute actionable pathology and chronic surgical changes. EKG performed which showed sinus tachycardia with ectopy and no acute evidence of ischemia. Labs, imaging, and EKG were reviewed by myself. ASSESSMENT AND PLAN: 77-year-old female with past medical history of nonischemic cardiomyopathy, history of ventricular tachycardia; status post AICD , and history of Lane syndrome with breast; ovarian; colon and recently diagnosed pancreatic cancer, status post partial pancreatectomy at [facility] on 09/10/18, and history of deep venous thrombosis, on anticoagulation who presents to emergency room with intractable nausea and epigastric pain. Her labs and imaging are reassuring at this time. Differential: This certainly could be a result of surgical ileus, less likely partial or complete small-bowel obstruction given she is having bowel movements and no transition point on 2 modalities of imaging. Furthermore, CTA of the abdomen rules out mesenteric ischemia. Most likely, this is the result of dehydration in the setting of a postsurgical complication and possible ileus contributing. 1. Epigastric pain, most consistent with GERD. The patient will be given gastrointestinal cocktail with Benadryl and viscous lidocaine x1. She has had IV pantoprazole, famotidine, sucralfate and we will continue to treat her symptomatically for heartburn-like symptoms. 2. Abdominal pain, as related to gastroesophageal reflux disease and postsurgical changes. The patient is on p.r.n. Toradol and fentanyl IV. We will continue her bowel regimen and continue IV fluids. 3. Nausea. The patient will be alternated on p.r.n. Compazine and Zofran, can do Ativan as needed as well as Reglan as needed, but we will hold on adding those as p.r.n. at this time. We will continue normal saline at 125 cc per hour and offer a clear liquid diet. Her QTc is 496 on admission and we will use low doses of Compazine and Zofran and watch carefully. Can perform serial EKGs if needed or excessive use. Her magnesium is 1.9, we can replete as needed. 4. Nonischemic cardiomyopathy. She has no active issues. We will continue her home beta kervin and lisinopril. 5. Hypertension: Elevated BP on admission, will offer patient IV metoprolol if she feels she is unable to PO 6. Hypothyroidism. We will continue her home medications. 7. DVT, on anticoagulation history. We will continue with her home rivaroxaban. 8. Transient ischemic attack. This is not an active problem. We will continue her statin and anticoagulation. 9. DVT prophylaxis. She is on therapeutic anticoagulation. 10. Fluid, electrolyte, and nutrition. She will be placed on a clear liquid diet. 11. Code status: Full DISPOSITION: Stable for admission to the medical floor under observation status. Her primary care provider, Dr. Anusha Reed, will be e-mailed to continue her rounding and can convert her to inpatient as needed. TIME SPENT: Thirty-five minutes were spent on the planning of this hospital admission, with over half of that spent directly at the bedside with the patient , providing direct patient care. Plan of care was discussed with the patient and her family and they are in agreement with admission under observation status to the medical floor for continued symptomatic management. [id number]/CPS #: [id number] MTDD
[2018-09-19] MEDS: PROCHLORPERAZINE INJ 5 MG/ML 2 ML VIAL IV PRN ×2 (02:40→12:48)
[2018-09-19] MEDS: Levothyroxine TAB* 50 MCG TAB PO SCH (05:50)
[2018-09-19] MEDS: NS 0.9% 1000 ML** 1,000 ML IV SCH (05:50)
[2018-09-19 07:11] LABS: Albumin 3.7 g/dL (3.2-5.2); Calcium 8.7 mg/dL (8.6-10.3); Potassium 4.4 mmol/L (3.5-5.0); Total Bilirubin 0.4 mg/dL (0.2-1.0)
[2018-09-19 07:17] LABS: Albumin/Globulin Ratio 1.6 (1-3); BUN/Creatinine Ratio 26.6 (8-20); EGFR African American 108.3 (>60); EGFR Non-African American 89.5 (>60); Globulin 2.3 g/dL (2-4)
[2018-09-19] MEDS: Ondansetron INJ* 2 MG/ML VIAL IV PRN (08:17)
[2018-09-19] MEDS: Pantoprazole IV* 40 MG IV SCH (08:17)
[2018-09-19] MEDS: Lisinopril TAB* 5 MG PO SCH ×2 (08:40→09:14)
[2018-09-19] MEDS: Metoprolol Succinate XL TAB* 50 MG PO SCH ×3 (08:40→20:37)
[2018-09-19] MEDS ORDERED: Rivaroxaban TAB(*) 10 MG PO SCH (09:00)
[2018-09-19] MEDS: Liothyronine TAB* 5 MCG PO SCH (09:14)
[2018-09-19] MEDS: LORazepam INJ* 2 MG/ML 1 ML VIAL IV PUSH PRN ×2 (10:03→15:20)
[2018-09-19] MEDS ORDERED: fentaNYL* 50 MCG/ML 2 ML VIAL (100 MCG VIAL) ONE (16:02)
[2018-09-19] MEDS ORDERED: Midazolam* 1 MG/ML 10 ML VIAL (10 MG) ONE (16:02)
--- NOTE | 2018-09-19 17:43 | CONS ---
CC: Dr. Anusha Reed GASTROENTEROLOGY CONSULT REPORT: DATE OF CONSULT: 09/19/18 REQUESTING PROVIDER: Dr. Anusha Reed. REASON FOR CONSULT: Nausea and vomiting with concern for gastric outlet obstruction. HISTORY OF PRESENT ILLNESS: Ms. Good is a leela woman with a history of nonischemic cardiomyopathy, history of V-tach status-post ICD placement; history of DVT on anticoagulation; history of Lane syndrome with breast, ovarian, colon, and recently diagnosed uncinate process pancreatic cancer status -post Whipple procedure at [facility] on 09/10/18, who is admitted with nausea and vomiting. Ms. Good underwent Whipple surgery on 09/10/18 for pancreatic tumor. I do not have surgical report or hospital records for review at time of this consult note. She returned home to [place] on 09/17/18. She was admitted to [facility] on 09/18 with complaints of nausea, vomiting, and p.o. intolerance. Ms. Good states that she has had some difficulty swallowing pills, which started several days after the surgery. She has also had progressive nausea and intolerance to p.o for past week or so. She started having vomiting within the 1-2 days prior to admission to [facility]. She describes a burning discomfort in her chest. She reports some mild discomfort in her abdomen at her incision site, although she denies any significant abdominal pain. She states that she has been having relatively normal-appearing bowel movements over the past few days. No fevers or chills. No shortness of breath or chest pain. She has been on Pantoprazole since the Whipple procedure. PAST MEDICAL HISTORY: 1. Lane syndrome with history of breast, ovarian, colon, and pancreatic cancer. 2. History of DVT, on anticoagulation. 3. History of TIA. 4. Hypothyroidism. 5. Osteoarthritis and osteoporosis. 6. History of nonischemic cardiomyopathy. 7. History of ventricular tachycardia, status post ICD placement. PAST SURGICAL HISTORY: 1. Partial thyroidectomy. 2. Left mastectomy. 3. ICD placement. 4. Status post cholecystectomy. 5. Partial colectomy. 6. Status post total abdominal hysterectomy and bilateral salpingo- oophorectomy. 7. Status post partial pancreatectomy on 09/10/18. MEDICATIONS: At home, include: 1. Tylenol as needed for pain. 2. Oxycodone as needed for pain. 3. Protonix 40 mg daily. 4. Docusate 100 mg daily. 5. Levothyroxine 50 mcg daily. 6. Cytomel 10 mcg daily. 7. Lisinopril 5 mg in the morning and 10 mg in the evening. 8. Metoprolol 50 mg b.i.d. 9. Rivaroxaban 10 mg daily. 10. Simvastatin 10 mg at bedtime. ALLERGIES: Allergic to DYE, PENICILLIN, SULFA, and SEA FOOD. FAMILY HISTORY: Mother with numerous cancers. Her son has been diagnosed with Lane syndrome. SOCIAL HISTORY: Nonsmoker. No alcohol use. No drug use. 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 Lives with her . REVIEW OF SYSTEMS: Full review of systems negative except as above. PHYSICAL EXAM: Vital Signs: Afebrile, heart rate 95, blood pressure 162/82, 96% on room air. General: Nauseous-appearing elderly woman. Sitting up in bed with emesis basin. Cardiovascular: Regular rate and rhythm. Pulmonary: Breathing comfortably. Abdomen: Large midline abdominal incision with sutures in place. Mild diffuse tenderness on exam. No significant distention. Extremities: No edema. Skin: No jaundice. Neuro: A and O x3. DIAGNOSTIC STUDIES/LAB DATA: Labs reviewed. White count 8.7, hemoglobin 11.3, hematocrit 34, platelet count 300. BUN 17, creatinine 0.64. CRP 43.52 on admission. LFTs normal today. Lipase not elevated on admission. Imaging: A chest, abdomen, pelvis CTA was performed on 09/18/18, which demonstrated moderate gastric distention and soft tissue changes in the region of the antrum possibly related to prior gastric surgery. No other acute findings noted. Abdominal x-ray on 09/18/18 demonstrated air-fluid level within the stomach correlating with moderate gastric distention. Paucity of gas noted in the small bowel without evidence of distention. IMPRESSION AND PLAN: Ms. Good is a leela woman with a history of nonischemic cardiomyopathy, history of V-tach status-post ICD placement; history of DVT on anticoagulation; history of Lane syndrome with breast, ovarian, colon, and recently diagnosed uncinate process pancreatic cancer status-post Whipple procedure at [facility] on 09/10/18, who is admitted with nausea and vomiting. CT and abdominal x-ray suggest distention of stomach. Presentation and imaging are suggestive of gastric outlet obstruction in the setting of the recent Whipple surgery. Possible that the anastomotic angle is fairly acute or there is superimposed edema at anastomosis site resulting in gastric outlet obstruction. No evidence of small bowel obstruction or ileus on CT or x-ray. I would like to discuss the case with the patient's surgeon at [facility] before pursuing an upper endoscopy, particularly as she just had a major abdominal surgery less than 10 days ago. I have placed a call to the patient's surgeon and waiting for return call. In the interim, I would recommend placement of an NG tube to LIWS for decompression. Recommend patient be kept N.p.o. with IV fluids for hydration. Recommend IV PPI BID for now. If Surgery at [facility] agrees with performing EGD for evaluation, then this can likely be performed tomorrow. Thank you very much for this consult, Dr. Reed. GI will continue to follow. ADDENDUM: I discussed the patient with one of the Surgical fellows at [facility], Mushtaq. ROSANGELA for EGD from their standpoint. Agree with NGT with decompression for tonight. We will reach out to Surg Onc at [facility] after tomorrow's EGD to review the findings. Марина Arteaga MD [id number]/[facility] #: [id number] [facility] THROAT HOSPITALDaryl
[2018-09-19] MEDS ORDERED: Lisinopril TAB* 5 MG PO SCH (18:00)
[2018-09-19] MEDS: Lisinopril TAB* 10 MG PO SCH (18:14)
[2018-09-19] MEDS: Lactated Ringers 1000 ML Bag* 1,000 ML IV SCH (19:12)
[2018-09-19] MEDS: Enoxaparin(*) 40 MG/0.4 ML SYR SUBCUT SCH (20:10)
[2018-09-19] MEDS: Metoprolol Tartrate IV* 1 MG/ML 5 ML VIAL IV SCH (20:13)
[2018-09-19] MEDS: Atorvastatin* 10 MG TAB PO SCH (20:37)
[2018-09-20] MEDS: Metoprolol Tartrate IV* 1 MG/ML 5 ML VIAL IV SCH ×4 (01:50→18:21)
[2018-09-20] MEDS: Lactated Ringers 1000 ML Bag* 1,000 ML IV SCH ×2 (05:16→21:00)
[2018-09-20] MEDS: Levothyroxine TAB* 50 MCG TAB PO SCH (05:27)
[2018-09-20 05:53] LABS: ABS Basophils 0 10^3/ul (0-0.2); ABS Eosinophils 0.1 10^3/ul (0-0.6); ABS Monocytes 0.8 10^3/ul (0-0.8); ABS Nucleated RBC 0 10^3/ul; Eosinophil % 1.8 %; Hematocrit 29 % (33-41); Hemoglobin 9.6 g/dL (12.0-16.0); Mean Corpuscular HGB Conc 34 g/dL (31-36); Mean Corpuscular Hemoglobin 31 pg (27-31); Mean Corpuscular Volume 93 fL (80-97); Mean Platelet Volume 8.3 fL (7.4-10.4); Nucleated Red Blood Cells % 0; Platelet Count 284 10^3/uL (150-450); Red Blood Count 3.09 10^6 /uL (3.70-4.87); Red Cell Distribution Width 15 % (10.5-15)
[2018-09-20 06:24] LABS: Albumin 3.1 g/dL (3.2-5.2); Albumin/Globulin Ratio 1.3 (1-3); BUN/Creatinine Ratio 31.1 (8-20); C Reactive Protein 16.15 mg/L (<8.01); Calcium 8.2 mg/dL (8.6-10.3); EGFR African American 114.5 (>60); EGFR Non-African American 94.6 (>60); Globulin 2.4 g/dL (2-4); Potassium 3.2 mmol/L (3.5-5.0); Total Bilirubin 0.5 mg/dL (0.2-1.0); Total Protein 5.5 g/dL (6.4-8.9)
[2018-09-20] MEDS: Lisinopril TAB* 5 MG PO SCH (07:38)
[2018-09-20] MEDS: Metoprolol Succinate XL TAB* 50 MG PO SCH ×2 (07:38→20:53)
[2018-09-20] MEDS: Liothyronine TAB* 5 MCG PO SCH (07:38)
[2018-09-20] MEDS: Pantoprazole IV* 40 MG IV SCH (10:12)
[2018-09-20] MEDS: LORazepam INJ* 2 MG/ML 1 ML VIAL IV PUSH PRN (10:21)
[2018-09-20 11:47] LABS: Magnesium 1.9 mg/dL (1.9-2.7); Phosphorus 2.5 mg/dL (2.5-5.0)
[2018-09-20] MEDS: KCL 20 MEQ/100 ML IVPREMIX* 20 MEQ/100 ML BAG IV SCH ×2 (12:34→17:25)
[2018-09-20] MEDS ORDERED: Midazolam* 1 MG/ML 10 ML VIAL (10 MG) ONE (14:11)
[2018-09-20] MEDS ORDERED: fentaNYL* 50 MCG/ML 2 ML VIAL (100 MCG VIAL) ONE (14:11)
--- NOTE | 2018-09-20 15:49 | PN ---
Progress Note - Progress Note Date of Service: 09/20/18 Note: GI Brief EGD Note Esophagus: LA-D erosive esophagitis GJ anastomosis anastomotic ulceration, still fairly open, efferent limb fine, inflammation limited afferent views. Rec: IV PPT gtt carafate Liquid diet D/W Surgical Fellow at [facility]: cell [phone] If reoccurrence recommend transfer back to [place]
[2018-09-20] MEDS ORDERED: Pantoprazole IV* 40 MG IV ONE (15:50)
[2018-09-20] MEDS: Lisinopril TAB* 10 MG PO SCH ×2 (18:21→18:27)
[2018-09-20] MEDS: Sucralfate TAB* 1 GM PO SCH ×3 (18:21→20:56)
[2018-09-20] MEDS: Pantoprazole* 80 mg IN NS 80 MG/250 ML BAG IVPB SCH (18:21)
[2018-09-20] MEDS: Enoxaparin(*) 40 MG/0.4 ML SYR SUBCUT SCH (20:50)
[2018-09-20] MEDS: Atorvastatin* 10 MG TAB PO SCH (20:52)
[2018-09-20] MEDS: Sucralfate SUSP 1 GM/10 ml 10 ML UDC PO SCH (22:07)
--- NOTE | 2018-09-20 22:07 | PRO ---
CC: Anusha Reed MD * ESOPHAGOGASTRODUODENOSCOPY REPORT: DATE OF PROCEDURE: 09/20/18 PRIMARY CARE PHYSICIAN: Anusha Reed MD INDICATIONS FOR PROCEDURE: Abdominal distention after Whipple surgery, concern for gastric outlet obstruction. PROCEDURE PERFORMED: Complete esophagogastroduodenoscopy. MEDICATIONS GIVEN: Include 6 mg IV midazolam, 25 mcg IV fentanyl. DESCRIPTION OF PROCEDURE: After the EGD procedure including the risks, benefits , and alternatives, with the risks not limited to perforation, surgery, missed lesions, and/or were explained to the patient, written informed consent was obtained. IV medication was given and a bite block was placed between the teeth. The adult Olympus gastroscope was then inserted into the patient's oropharynx and into the tubular esophagus. In the tubular esophagus, she had LA -T erosive esophagitis. There was no mass or stricturing. The scope was then advanced to the lower esophageal sphincter into the stomach with some scant retained debris. This was suctioned up easily. At the gastrojejunal junction there was an anastomotic ulceration. No gross stricturing, but quite inflamed. I was not able to intubate far into the afferent limb secondary to this inflammation; however, I was able to deeply intubate the efferent limb, which was grossly normal in appearance. There was no active bleeding from this site and the remainder of the small bowel was normal. The scope was then removed from the patient. She tolerated the procedure well. She returned to the recovery room in stable condition. IMPRESSION: 1. Complete esophagogastroduodenoscopy. 2. Anastomotic ulceration at the gastrojejunal junction with edema. 3. LA-D erosive esophagitis. RECOMMENDATIONS: I will place the patient on a Protonix drip in addition to Carafate and try to manage this conservatively; however, given that this is an anastomotic ulceration, sometimes blood flow is the issue and may eventually need further repair back at [facility]. I discussed the case with the surgical fellow Mushtaq at [facility] and will try conservative therapy here; however, if this recurs, will likely transfer back to [facility] for definitive surgical evaluation. I will place the patient on a liquid diet and we will see how she does. [id number]/[facility] #: [id number] [facility]
[2018-09-21] MEDS: Metoprolol Tartrate IV* 1 MG/ML 5 ML VIAL IV SCH ×4 (00:14→18:26)
[2018-09-21] MEDS: Pantoprazole* 80 mg IN NS 80 MG/250 ML BAG IVPB SCH ×2 (04:39→14:03)
[2018-09-21] MEDS: Levothyroxine TAB* 50 MCG TAB PO SCH (05:22)
[2018-09-21 06:47] LABS: Albumin 3.1 g/dL (3.2-5.2); Albumin/Globulin Ratio 1.3 (1-3); BUN/Creatinine Ratio 22.4 (8-20); C Reactive Protein 22.74 mg/L (<8.01); Calcium 8.2 mg/dL (8.6-10.3); EGFR African American 121.3 (>60); EGFR Non-African American 100.3 (>60); Globulin 2.3 g/dL (2-4); Magnesium 1.6 mg/dL (1.9-2.7); Phosphorus 2.6 mg/dL (2.5-5.0); Potassium 3.4 mmol/L (3.5-5.0); Total Bilirubin 0.7 mg/dL (0.2-1.0); Total Protein 5.4 g/dL (6.4-8.9)
[2018-09-21] MEDS ORDERED: Lorazepam PYXIS KEY PRN (09:07)
[2018-09-21] MEDS ORDERED: Magnesium Sulf 4 GM/100 ML IV* 4,000 MG/100 ML BAG IVPB ONE (09:57)
[2018-09-21] MEDS ORDERED: LEVOTHYROXINE IV SCH (10:00)
[2018-09-21] MEDS ORDERED: D5W IV SCH (10:00)
[2018-09-21 10:35] LABS: TSH (Thyroid Stimulating Horm) 8.91 mcIU/mL (0.34-5.60)
[2018-09-21] MEDS: Sucralfate SUSP 1 GM/10 ml 10 ML UDC PO SCH ×4 (10:43→22:12)
[2018-09-21] MEDS: KCL 20 MEQ/100 ML IVPREMIX* 20 MEQ/100 ML BAG IV SCH ×2 (11:19→14:03)
[2018-09-21] MEDS: Levothyroxine INJ* 100 MCG/5 ML VIAL IV SCH (11:21)
[2018-09-21] MEDS: Enalaprilat IV* 1.25 MG/ML 1 ML VIAL (1.25 MG) IV SCH ×3 (11:31→22:07)
[2018-09-21] MEDS: Metoprolol Succinate XL TAB* 50 MG PO SCH (11:32)
[2018-09-21] MEDS: Lisinopril TAB* 5 MG PO SCH (11:32)
[2018-09-21] MEDS: Liothyronine TAB* 5 MCG PO SCH (11:32)
--- NOTE | 2018-09-21 18:42 | PN ---
Progress Note - Progress Note Date of Service: 09/21/18 Note: GI follow up Patient seen and examined. Chart reviewed. Feeling better today. Had bm and passed gas A little hesitant to eat liquids or swallow pills No pain, or nausea VS: 137/57, P 76, R-17 97% RA, 98.3 Gen: alert and oriented x3, NAD HEENT: At/NC, perrla, eomi no jvp CVS: RRR s1s2 Resp: cta b/l Abd: soft, incision c/d/i, mild distention, bs+ but hypoactive Ext: no c/c/e Lab: Hgb 9.6, Plt 284, K-3.4 Mg 1.6 Rec: C/W IV PPI x 72 hours drip advance to full liquids, seems to be doing well. encouraged ok to do the liquids , should pass fine. if tolerating, can try soft diet on 09/22 If symptoms significantly return would need transfer back to [facility] for further evaluation and possible re-anastomosis D/W and patient at bedside. D/W PMD as well, would hold on TPN, infection risk not worth it now, would advance diet and see how she does. lauren richmond AM Chemo [place] DO 09/21/2018 [id number]
[2018-09-21] MEDS: Lactated Ringers 1000 ML Bag* 1,000 ML IV SCH (19:49)
[2018-09-21] MEDS: Enoxaparin(*) 40 MG/0.4 ML SYR SUBCUT SCH (22:03)
[2018-09-21] MEDS: Atorvastatin* 10 MG TAB PO SCH (22:06)
[2018-09-22] MEDS: Metoprolol Tartrate IV* 1 MG/ML 5 ML VIAL IV SCH ×3 (00:32→11:08)
[2018-09-22] MEDS: Pantoprazole* 80 mg IN NS 80 MG/250 ML BAG IVPB SCH ×4 (01:09→23:11)
[2018-09-22] MEDS: LORazepam INJ* 2 MG/ML 1 ML VIAL IV PUSH PRN ×2 (03:21→09:35)
[2018-09-22] MEDS: Enalaprilat IV* 1.25 MG/ML 1 ML VIAL (1.25 MG) IV SCH ×2 (03:51→09:22)
[2018-09-22] MEDS: Levothyroxine INJ* 100 MCG/5 ML VIAL IV SCH (06:15)
[2018-09-22 06:35] LABS: Hematocrit 32 % (33-41); Hemoglobin 10.6 g/dL (12.0-16.0); Mean Corpuscular HGB Conc 34 g/dL (31-36); Mean Corpuscular Hemoglobin 31 pg (27-31); Mean Corpuscular Volume 91 fL (80-97); Mean Platelet Volume 8.3 fL (7.4-10.4); Platelet Count 339 10^3/uL (150-450); Red Blood Count 3.46 10^6 /uL (3.70-4.87); Red Cell Distribution Width 14 % (10.5-15); White Blood Count 8.4 10^3/uL (3.5-10.8)
[2018-09-22 06:54] LABS: BUN/Creatinine Ratio 16.1 (8-20); Calcium 8.1 mg/dL (8.6-10.3); EGFR African American 112.4 (>60); EGFR Non-African American 92.9 (>60); Magnesium 2.1 mg/dL (1.9-2.7); Potassium 3.1 mmol/L (3.5-5.0)
[2018-09-22 07:16] LABS: ABS Basophils 0 10^3/ul (0-0.2); ABS Eosinophils 0.1 10^3/ul (0-0.6); ABS Monocytes 0.7 10^3/ul (0-0.8); ABS Neutrophils 6.4 10^3/ul (1.5-7.7); ABS Nucleated RBC 0 10^3/ul; Eosinophil % 1.5 %; Lymphocyte % 11.9 %; Nucleated Red Blood Cells % 0
[2018-09-22] MEDS: Sucralfate SUSP 1 GM/10 ml 10 ML UDC PO SCH ×4 (09:21→22:05)
--- NOTE | 2018-09-22 11:03 | PN ---
Subjective - Subjective Reason for Note: Progress Note History: I am rounding for Dr. Anusha Reed/internal medicine this weekend (today and tomorrow). Dr. Anusha Reed signed this patient out to me. I have spoken to Jose Antonio Good and have gleaned her history also from the electronic medical records and Dr. Anusha Reed's handwritten records. I have reviewed investigations (including EGD), labs and radiology. This morning she has a slight left lower quadrant tenderness. She is not nauseated. Her other pain seems controlled. She has progressed towards liquid diet - so far she has no sensation of fullness or of blockage. She has had no nausea/vomiting. She is passing flatus. She has a sensation in her throat of something dangling and not being cleared since her EGD - this is troubling her. 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 Carcinoma of breast (Chronic) C50.919 Cardiomyopathy (Chronic) I42.9 Cerebrovascular disease (Chronic) I67.9 Essential hypertension (Chronic) I10 Hx of DVT (Chronic) Hx right colectomy for colon cancer (Chronic) Hyperlipidemia (Chronic) E78.5 Hypothyroidism (Chronic) E03.9 Implanted cardiac defibrillator (Chronic) Non-ischemic cardiomyopathy (Chronic) I42.8 Osteoporosis (Chronic) M81.0 Current Medications: Current Medications Acetaminophen (Tylenol Tab*) 650 mg PO Q6H PRN PRN Reason: FEVER/PAIN Atorvastatin Calcium (Lipitor*) 5 mg PO BEDTIME [facility] Last Admin: 09/21/18 22:06 Dose: Not Given Docusate Sodium (Colace Cap*) 100 mg PO BID PRN PRN Reason: CONSTIPATION Enalaprilat (Vasotec Iv*) 1.25 mg IV Q6H [facility] Last Admin: 09/22/18 09:22 Dose: 1.25 mg Enoxaparin Sodium (Lovenox(*)) 40 mg SUBCUT Q24H [facility] Last Admin: 09/21/18 22:03 Dose: 40 mg Fentanyl Citrate (Fentanyl*) 25 mcg IV SLOW PU Q4H PRN PRN Reason: PAIN Lactated Ringer's (Lactated Ringers 1000 Ml Bag*) 1,000 mls @ 100 mls/hr IV PER RATE [facility] Last Admin: 09/21/18 19:49 Dose: 100 mls/hr Pantoprazole Sodium (Protonix Iv Bag*) 80 mg in 250 mls @ 25 mls/hr IVPB Q10H [facility] Last Admin: 09/22/18 01:09 Dose: 25 mls/hr Levothyroxine Sodium (Synthroid Inj*) 25 mcg IV 0600 [facility] Last Admin: 09/22/18 06:15 Dose: 25 mcg Lorazepam (Ativan Inj*) 0.5 mg IV PUSH Q4H PRN PRN Reason: ANXIETY Last Admin: 09/22/18 09:35 Dose: 0.5 mg Metoprolol Tartrate (Lopressor Iv*) 10 mg IV Q6H [facility] Last Admin: 09/22/18 06:16 Dose: 10 mg Miscellaneous (Ativan Pyxis Morales) 1 ea N/A .PYXIS MORALES PRN PRN Reason: PER PROTOCOL Ondansetron HCl (Zofran Inj*) 4 mg IV Q4H PRN PRN Reason: NAUSEA Oxycodone HCl (Oxycodone Oral.Soln*) 5 mg PO Q4H PRN PRN Reason: PAIN Prochlorperazine Edisylate (Compazine Inj*) 10 mg IV Q6H PRN PRN Reason: NAUSEA/VOMITING Last Admin: 09/19/18 12:48 Dose: 10 mg Sucralfate (Sucralfate Susp) 1 gm PO ACHS [facility] Last Admin: 09/22/18 09:21 Dose: 1 gm - Review of Systems Constitutional Symptoms: No: Fever, Night Sweats Pulmonary: Negative: Cough, Sputum, Respiratory Distress Cardiology: Negative: Chest Pain, Palpitations, Swelling of Ankles Gastroenterology: Positive: Abdominal Pain Negative: Nausea, Vomiting, Heartburn, Constipation Genital - Urinary: Positive: Normal Neurology: Negative: Headache, Change in Vision Home Medications: Home Medications Medication Instructions Recorded Confirmed Type Metoprolol Succinate XL TAB* 50 mg PO BID 06/30/12 09/18/18 History [Toprol XL TAB*] Liothyronine TAB* [Cytomel TAB*] 10 mcg PO DAILY 12/27/13 09/18/18 History Levothyroxine TAB* [Synthroid TAB*] 50 mcg PO DAILY 12/08/17 09/18/18 History Lisinopril TAB* [Prinivil TAB 5 5 mg PO QAM 12/08/17 09/18/18 History MG*] Lisinopril TAB* [Prinivil TAB 5 10 mg PO QPM 12/08/17 09/18/18 History MG*] Simvastatin TAB(NF) [Zocor 10 MG 10 mg PO BEDTIME 12/08/17 09/18/18 History (NF)] Acetaminophen [Tylenol] 325 - 650 mg PO Q6HR PRN 09/18/18 09/18/18 History Docusate Sodium [Colace] 100 mg PO SEE INSTRUCTIONS PRN 09/18/18 09/18/18 History Pantoprazole TAB * [Protonix TAB*] 40 mg PO DAILY 09/18/18 09/18/18 History Rivaroxaban TAB(*) [Xarelto 10 mg 10 mg PO DAILY 09/18/18 09/18/18 History (*)] oxyCODONE ORAL.SOLN* [Oxycodone 5 mg PO Q4H PRN #120 ml MDD 30 ml 09/18/1809/18 Rx ORAL.SOLN 5 mg/5 ml *] oxyCODONE TAB* [Roxycodone TAB 5 5 mg PO Q6H PRN 09/18/18 09/18/18 History mg*] Allergies: Allergies Allergy/AdvReac Type Severity Reaction Status Date / Time Iodinated Contrast- Oral and Allergy Hives Verified 09/18/18 14:53 IV Dye Penicillins Allergy Rash Verified 09/18/18 14:53 Sulfa (Sulfonamide Allergy Rash Verified 09/18/18 14:53 Antibiotics) seafood Allergy Severe Hives Uncoded 09/18/18 14:53 Objective - Vital Signs Vital Signs: Vital Signs 09/21/18 09/21/18 09/21/18 11:29 11:32 13:20 Temperature 97.0 F 97.0 F Pulse Rate 76 74 75 Respiratory 17 17 18 Rate Blood Pressure 149/59 149/59 170/77 (mmHg) O2 Sat by Pulse 96 98 Oximetry 09/21/18 09/21/18 09/21/18 15:10 18:24 19:12 Temperature 98.3 F 97.3 F Pulse Rate 78 76 65 Respiratory 17 22 Rate Blood Pressure 152/81 137/57 137/73 (mmHg) O2 Sat by Pulse 97 97 Oximetry 09/21/18 09/21/18 09/21/18 20:00 23:36 23:45 Temperature 97.7 F Pulse Rate 73 Respiratory 20 22 Rate Blood Pressure 202/76 160/77 (mmHg) O2 Sat by Pulse 96 Oximetry 09/22/18 09/22/18 09/22/18 03:02 03:21 03:54 Temperature 98.1 F Pulse Rate 75 71 Respiratory 20 20 Rate Blood Pressure 178/85 166/86 (mmHg) O2 Sat by Pulse 98 96 Oximetry 09/22/18 09/22/18 04:10 09:35 Temperature Pulse Rate Respiratory 18 18 Rate Blood Pressure (mmHg) O2 Sat by Pulse Oximetry - Intake and Output Intake and Output: Intake & Output 09/19/18 09/20/18 09/21/18 09/22/18 11:59 11:59 11:59 11:59 Intake Total 987.5 2235 3794 2775 Output Total 700 900 700 Balance 987.5 1535 2894 2075 Weight 149 lb 12.8 oz Intake: IV Fluids 987.5 2055 2797 1359 LR 1058 2730 protonix 67 1359 IVPB 97 636 protonix 97 636 Oral 0 180 900 780 Output: NG Tube Drainage Amount 550 900 Urine 150 700 Other: Estimated Void Small Medium Medium # Bowel Movements 0 0 # Voids 1 0 1 ADLs: Meal Record Start: 09/18/18 21: 01 Freq: DAILY@0900,1400,1800 Status: Active Protocol: Created 09/18/18 21:01 System (Rec: 09/18/18 21:01 System MED-C02) Document 09/19/18 09:00 [id number] (Rec: 09/19/18 10:06 [id number] MED-C11) Document 09/19/18 14:00 [id number] (Rec: 09/19/18 18:14 [id number] MED-C04) Document 09/19/18 18:00 [id number] (Rec: 09/19/18 18:32 [id number] MED-C14) Document 09/20/18 09:00 [id number] (Rec: 09/20/18 10:30 [id number] MED-C09) Document 09/20/18 14:00 [id number] (Rec: 09/20/18 14:52 [id number] MED-C11) Document 09/20/18 17:30 [id number] (Rec: 09/20/18 17:30 [id number] MED-C11) Document 09/21/18 09:00 [id number] (Rec: 09/21/18 13:35 [id number] MED-C09) Document 09/21/18 14:00 [id number] (Rec: 09/21/18 17:24 [id number] MED-C11) Document 09/21/18 18:00 [id number] (Rec: 09/21/18 20:01 [id number] MED-C09) Intake and Output Start: 09/18/18 14: 53 Freq: Status: Active Protocol: Created 09/18/18 14:53 System (Rec: 09/18/18 14:53 System ED-C24) Intake and Output Start: 09/18/18 21: 01 Freq: DAILY@0600,1400,2200 Status: Active Protocol: Created 09/18/18 21:01 System (Rec: 09/18/18 21:01 System MED-C02) Document 09/18/18 22:00 [id number] (Rec: 09/18/18 22:38 [id number] MED-C14) Document 09/19/18 03:22 [id number] (Rec: 09/19/18 03:22 [id number] MED-M19) Document 09/19/18 04:47 [id number] (Rec: 09/19/18 04:48 [id number] MED-C11) Document 09/19/18 14:00 [id number] (Rec: 09/19/18 14:24 [id number] MED-C11) Document 09/19/18 21:46 [id number] (Rec: 09/19/18 21:48 [id number] MED-C14) Document 09/20/18 03:53 [id number] (Rec: 09/20/18 03:54 [id number] MED-M11) Document 09/20/18 05:16 [id number] (Rec: 09/20/18 05:16 [id number] MED-C07) Document 09/20/18 14:00 [id number] (Rec: 09/20/18 15:21 [id number] MED-C11) Document 09/20/18 16:30 [id number] (Rec: 09/20/18 16:30 [id number] MED-M02) Document 09/21/18 05:14 [id number] (Rec: 09/21/18 05:15 [id number] MED-C12) Document 09/21/18 14:00 [id number] (Rec: 09/21/18 17:24 [id number] MED-C11) Document 09/21/18 21:31 [id number] (Rec: 09/21/18 21:37 [id number] MED-C09) Document 09/22/18 05:38 [id number] (Rec: 09/22/18 05:40 [id number] MED-C11) - Physical Exam General Physical Exam Comment: She is warm and well perfused, she is hemodynamically stable and in no acute distress. Her abdominal longitudinal scar is healing well General: No Cyanosis, No Anemia, No Jaundice, No Clubbing Throat/Oropharyx Exam: Bilateral: Normal Lungs and Chest: Yes: Chest Expansion Full, Chest Expansion Symetrica, Percussion Note Resonant, Vessicular Breath Sounds. No: Crackles, Wheezes, Respiratory Distress Heart Rate and Rhythm: Regular Additional Cardiovascular: Yes: Normal Heart Sounds. No: Heart Murmur, Pedal Edema Abdominal Exam: Yes: Distention - mild, Soft, Bowel Sounds Present. No: Rigidity, Abdominal Mass, Hepatomegaly, Abdominal Tenderness, Guarding, Rebound Tenderness Results - Results Lab Results: Laboratory Results - last 24 hr 09/22/18 09/22/18 06:15 06:15 WBC 8.4 RBC 3.46 L Hgb 10.6 L Hct 32 L MCV 91 MCH 31 MCHC 34 RDW 14 Plt Count 339 MPV 8.3 Neut % (Auto) 77.5 Lymph % (Auto) 11.9 [place] % (Auto) 8.5 Eos % (Auto) 1.5 Baso % (Auto) 0.6 Absolute Neuts (auto) 6.4 Absolute Lymphs (auto) 1.0 Absolute Monos (auto) 0.7 Absolute Eos (auto) 0.1 Absolute Basos (auto) 0 Absolute Nucleated RBC 0 Nucleated RBC % 0 Sodium 138 Potassium 3.1 L Chloride 98 L Carbon Dioxide 21 L Anion Gap 19 H BUN 10 Creatinine 0.62 Est GFR ( Amer) 112.4 Est GFR (Non-Af Amer) 92.9 BUN/Creatinine Ratio 16.1 Glucose 75 Calcium 8.1 L Magnesium 2.1 Radiology Results: Patient Name: JOSE ANTONIO GOOD Medical Record#: [id number] Ordering Physician: Chemo Almonte DO Acct.#: [id number] : 1940 Age: 77 Sex: F Location: [address] [place] [address] MEDICAL Exam Date: 09/22/18 06 ADM Status: ADM IN Order Information: ABDOMEN/KUB 1 VW Accession Number: [id number] CPT: 94209 Indication: Chronic ulcer. Flat plate of the abdomen demonstrates patient is status post laparotomy. No dilated loops of bowel are noted. Psoas margins are intact. IMPRESSION: Postoperative changes with no evidence of abnormally dilated loops of bowel. <Electronically signed by Pat Merlos MD in OV> 09/22/18856 Dictated By: Pat Merlos MD Dictated Date/Time: 09/22/18856 Transcribed Date/Time: 09/22/18 08 Copy to: Assessment - Problem List Assessment: Patient Problems Anastomotic ulcer S/P gastric bypass (Acute) Esophagitis (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) Malignant neoplasm of pancreas, part unspecified (Acute) Nutrition deficiency due to insufficient food (Acute) Adrenal nodule (Chronic) Anticoagulation adequate (Chronic) Anxiety (Chronic) Luna aneurysm (Chronic) Carcinoma of breast (Chronic) Cardiomyopathy (Chronic) Cerebrovascular disease (Chronic) Essential hypertension (Chronic) Hx of DVT (Chronic) Hx right colectomy for colon cancer (Chronic) Hyperlipidemia (Chronic) Hypothyroidism (Chronic) Implanted cardiac defibrillator (Chronic) Non-ischemic cardiomyopathy (Chronic) Osteoporosis (Chronic) Plan: Anastomotic ulcer S/P gastric bypass (Acute)Esophagitis (Acute)History of Dariusz- en-Y gastric bypass (Acute)History of partial pancreatectomy (Acute) pancreatic carcinoma post Whipple procedure 09/10/18. Nutrition deficiency due to insufficient food (Acute) She is comfortable today. Although we are progressing her diet, she remains anxious about this. There is some uncertainty about whether she is passing this food through the anastamosis - however the AXR yesterday is encouraging. I think she needs a positive approach to progressing her status. I am going to stop as many infusions as possible and also stop her telemetry. I am going to encourage her to mobilize. She is apprehensive about my stopping her IVF - but I will make this symbolic and see if she drinks sufficiently. She drank 780 mls yesterday on her I and O. 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 A few VEs. I vo stop telemetry - she has an ICD. I will supplement her low K. Secondary diagnoses: Adrenal nodule (Chronic) Anticoagulation adequate (Chronic) Anxiety (Chronic) Luna aneurysm (Chronic) Carcinoma of breast (Chronic) Cerebrovascular disease (Chronic) Essential hypertension (Chronic) Hx of DVT (Chronic) Hx right colectomy for colon cancer (Chronic) Hyperlipidemia (Chronic) Osteoporosis (Chronic) I discussed the above with the patient and she agrees to the management plan
[2018-09-22] MEDS: Lactated Ringers 1000 ML Bag* 1,000 ML IV SCH (11:08)
[2018-09-22] MEDS ORDERED: KCL 10 MEQ/50 ML IVPREMIX* 10 MEQ/50 ML BAG IV ONE (11:19)
[2018-09-22] MEDS: Levothyroxine TAB* 50 MCG TAB PO SCH (12:44)
[2018-09-22] MEDS: Potassium Chloride IV* 20 MEQ in Lactated Ringers 1000 ML Bag* 1,000 ML IVPB SCH (13:32)
[2018-09-22] MEDS: PROCHLORPERAZINE INJ 5 MG/ML 2 ML VIAL IV PRN (17:06)
[2018-09-22] MEDS: Ondansetron INJ* 2 MG/ML VIAL IV PRN (21:43)
[2018-09-22] MEDS: Enoxaparin(*) 40 MG/0.4 ML SYR SUBCUT SCH (21:48)
[2018-09-22] MEDS: Metoprolol Tartrate TAB* 50 mg PO SCH (21:58)
[2018-09-22] MEDS ORDERED: Lisinopril TAB* 10 MG PO SCH (22:00)
[2018-09-22] MEDS: Atorvastatin* 10 MG TAB PO SCH (22:00)
[2018-09-22] MEDS: Liothyronine TAB* 5 MCG PO SCH (22:04)
[2018-09-23] MEDS: PROCHLORPERAZINE INJ 5 MG/ML 2 ML VIAL IV PRN (00:22)
[2018-09-23] MEDS: Ondansetron INJ* 2 MG/ML VIAL IV PRN ×2 (04:50→09:19)
[2018-09-23] MEDS: Morphine INJ* 2 MG/ML 1 ML SYRINGE (TWO MG - NEW SYRINGE VERSION) IV PRN ×4 (04:50→17:59)
[2018-09-23] MEDS: Sucralfate SUSP 1 GM/10 ml 10 ML UDC PO SCH (05:57)
[2018-09-23 06:38] LABS: BUN/Creatinine Ratio 14.1 (8-20); Calcium 8.6 mg/dL (8.6-10.3); EGFR African American 108.3 (>60); EGFR Non-African American 89.5 (>60); Potassium 3.4 mmol/L (3.5-5.0)
[2018-09-23] MEDS: Pantoprazole* 80 mg IN NS 80 MG/250 ML BAG IVPB SCH ×4 (07:01→23:28)
[2018-09-23] MEDS: Potassium Chloride IV* 20 MEQ in Lactated Ringers 1000 ML Bag* 1,000 ML IVPB SCH (07:54)
[2018-09-23] MEDS: Levothyroxine TAB* 50 MCG TAB PO SCH (09:19)
[2018-09-23] MEDS: Metoprolol Tartrate TAB* 50 mg PO SCH (09:19)
[2018-09-23] MEDS: Liothyronine TAB* 5 MCG PO SCH (09:19)
--- NOTE | 2018-09-23 10:16 | PN ---
Subjective - Subjective Reason for Note: Progress Note History: She was doing well until yesterday evening. She has developed severe abdominal pain, distension, nausea and vomiting. She is now requiring morphine sulfate 2 mg - and that is not taking care of the pain. She is discouraged and is talking about hospice. She has had no cough/sputum or fever/sweats. She is unable to take oral medications. 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 Carcinoma of breast (Chronic) C50.919 Cardiomyopathy (Chronic) I42.9 Cerebrovascular disease (Chronic) I67.9 Essential hypertension (Chronic) I10 Hx of DVT (Chronic) Hx right colectomy for colon cancer (Chronic) Hyperlipidemia (Chronic) E78.5 Hypothyroidism (Chronic) E03.9 Implanted cardiac defibrillator (Chronic) Non-ischemic cardiomyopathy (Chronic) I42.8 Osteoporosis (Chronic) M81.0 Current Medications: Current Medications Acetaminophen (Tylenol Tab*) 650 mg PO Q6H PRN PRN Reason: FEVER/PAIN Atorvastatin Calcium (Lipitor*) 5 mg PO BEDTIME [facility] Last Admin: 09/22/18 22:00 Dose: 5 mg Docusate Sodium (Colace Cap*) 100 mg PO BID PRN PRN Reason: CONSTIPATION Enoxaparin Sodium (Lovenox(*)) 40 mg SUBCUT Q24H [facility] Last Admin: 09/22/18 21:48 Dose: 40 mg Pantoprazole Sodium (Protonix Iv Bag*) 80 mg in 250 mls @ 25 mls/hr IVPB Q10H [facility] Last Admin: 09/23/18 07:01 Dose: Not Given Potassium Chloride 20 meq/ (Lactated Ringer's) 1,010 mls @ 50 mls/hr IVPB Q20H [facility] Last Admin: 09/23/18 07:54 Dose: 50 mls/hr Levothyroxine Sodium (Synthroid Tab*) 50 mcg PO DAILY [facility] Last Admin: 09/23/18 09:19 Dose: Not Given Liothyronine Sodium (Cytomel Tab*) 5 mcg PO BID [facility] Last Admin: 09/23/18 09:19 Dose: Not Given Lisinopril (Prinivil Tab*) 20 mg PO DAILY@2200 [facility] Last Admin: 09/23/18 03:15 Dose: Not Given Metoprolol Tartrate (Lopressor Tab*) 50 mg PO Q12HR [facility] Last Admin: 09/23/18 09:19 Dose: Not Given Morphine Sulfate (Morphine Inj (Syringe))*) 2 mg IV Q4H PRN PRN Reason: PAIN SEVERE Last Admin: 09/23/18 09:04 Dose: 2 mg Ondansetron HCl (Zofran Inj*) 4 mg IV Q4H PRN PRN Reason: NAUSEA Last Admin: 09/23/18 09:19 Dose: 4 mg Prochlorperazine Edisylate (Compazine Inj*) 10 mg IV Q6H PRN PRN Reason: NAUSEA/VOMITING Last Admin: 09/23/18 00:22 Dose: 10 mg Sucralfate (Sucralfate Susp) 1 gm PO 0600,1100,1600,2100 [facility] Last Admin: 09/23/18 05:57 Dose: 1 gm Home Medications: Home Medications Medication Instructions Recorded Confirmed Type Metoprolol Succinate XL TAB* 50 mg PO BID 06/30/12 09/18/18 History [Toprol XL TAB*] Liothyronine TAB* [Cytomel TAB*] 10 mcg PO DAILY 12/27/13 09/18/18 History Levothyroxine TAB* [Synthroid TAB*] 50 mcg PO DAILY 12/08/17 09/18/18 History Lisinopril TAB* [Prinivil TAB 5 5 mg PO QAM 12/08/17 09/18/18 History MG*] Lisinopril TAB* [Prinivil TAB 5 10 mg PO QPM 12/08/17 09/18/18 History MG*] Simvastatin TAB(NF) [Zocor 10 MG 10 mg PO BEDTIME 12/08/17 09/18/18 History (NF)] Acetaminophen [Tylenol] 325 - 650 mg PO Q6HR PRN 09/18/18 09/18/18 History Docusate Sodium [Colace] 100 mg PO SEE INSTRUCTIONS PRN 09/18/18 09/18/18 History Pantoprazole TAB * [Protonix TAB*] 40 mg PO DAILY 09/18/18 09/18/18 History Rivaroxaban TAB(*) [Xarelto 10 mg 10 mg PO DAILY 09/18/18 09/18/18 History (*)] oxyCODONE ORAL.SOLN* [Oxycodone 5 mg PO Q4H PRN #120 ml MDD 30 ml 09/18/1809/18 Rx ORAL.SOLN 5 mg/5 ml *] oxyCODONE TAB* [Roxycodone TAB 5 5 mg PO Q6H PRN 09/18/18 09/18/18 History mg*] Allergies: Allergies Allergy/AdvReac Type Severity Reaction Status Date / Time Iodinated Contrast- Oral and Allergy Hives Verified 09/18/18 14:53 IV Dye Penicillins Allergy Rash Verified 09/18/18 14:53 Sulfa (Sulfonamide Allergy Rash Verified 09/18/18 14:53 Antibiotics) seafood Allergy Severe Hives Uncoded 09/18/18 14:53 Objective - Vital Signs Vital Signs: Vital Signs 09/22/18 09/22/18 09/22/18 11:00 11:08 15:56 Temperature 97.8 F 98.5 F Pulse Rate 74 80 Respiratory 16 18 20 Rate Blood Pressure 163/79 (mmHg) O2 Sat by Pulse 97 96 Oximetry 09/22/18 09/22/18 09/22/18 19:34 20:00 22:30 Temperature 97.0 F 97.7 F Pulse Rate 84 81 Respiratory 24 21 21 Rate Blood Pressure 150/78 133/80 (mmHg) O2 Sat by Pulse 97 96 Oximetry 09/23/18 09/23/18 09/23/18 00:09 03:30 04:50 Temperature 97.5 F 97.2 F Pulse Rate 82 77 Respiratory 20 22 20 Rate Blood Pressure 141/69 156/67 (mmHg) O2 Sat by Pulse 96 95 Oximetry 09/23/18 09/23/18 05:55 09:04 Temperature Pulse Rate Respiratory 17 16 Rate Blood Pressure (mmHg) O2 Sat by Pulse Oximetry - Intake and Output Intake and Output: Intake & Output 09/20/18 09/21/18 09/22/18 09/23/18 11:59 11:59 11:59 11:59 Intake Total 2235 3794 2775 7198 Output Total 700 900 700 Balance 1535 2894 2075 7198 Intake: IV Fluids 2055 2797 1359 6678 LR 1058 2730 5618 protonix 67 1359 1060 IVPB 97 636 protonix 97 636 Oral 180 900 780 520 Output: NG Tube Drainage Amount 550 900 Urine 150 700 Other: Estimated Void Medium Medium Small # Bowel Movements 0 1 Estimated Stool Amount Small # Voids 0 1 2 ADLs: Meal Record Start: 09/18/18 21: 01 Freq: DAILY@0900,1400,1800 Status: Active Protocol: Created 09/18/18 21:01 System (Rec: 09/18/18 21:01 System MED-C02) Document 09/19/18 09:00 [id number] (Rec: 09/19/18 10:06 [id number] MED-C11) Document 09/19/18 14:00 [id number] (Rec: 09/19/18 18:14 [id number] MED-C04) Document 09/19/18 18:00 [id number] (Rec: 09/19/18 18:32 [id number] MED-C14) Document 09/20/18 09:00 [id number] (Rec: 09/20/18 10:30 [id number] MED-C09) Document 09/20/18 14:00 [id number] (Rec: 09/20/18 14:52 [id number] MED-C11) Document 09/20/18 17:30 [id number] (Rec: 09/20/18 17:30 [id number] MED-C11) Document 09/21/18 09:00 [id number] (Rec: 09/21/18 13:35 [id number] MED-C09) Document 09/21/18 14:00 [id number] (Rec: 09/21/18 17:24 [id number] MED-C11) Document 09/21/18 18:00 [id number] (Rec: 09/21/18 20:01 [id number] MED-C09) Document 09/22/18 09:00 [id number] (Rec: 09/22/18 11:32 [id number] MED-C11) Document 09/22/18 14:00 [id number] (Rec: 09/22/18 17:17 [id number] MED-C16) Document 09/22/18 18:00 [id number] (Rec: 09/22/18 18:18 [id number] MED-C16) Intake and Output Start: 09/18/18 14: 53 Freq: Status: Active Protocol: Created 09/18/18 14:53 System (Rec: 09/18/18 14:53 System ED-C24) Intake and Output Start: 09/18/18 21: 01 Freq: DAILY@0600,1400,2200 Status: Active Protocol: Created 09/18/18 21:01 System (Rec: 09/18/18 21:01 System MED-C02) Document 09/18/18 22:00 [id number] (Rec: 09/18/18 22:38 [id number] MED-C14) Document 09/19/18 03:22 [id number] (Rec: 09/19/18 03:22 [id number] MED-M19) Document 09/19/18 04:47 [id number] (Rec: 09/19/18 04:48 [id number] MED-C11) Document 09/19/18 14:00 [id number] (Rec: 09/19/18 14:24 [id number] MED-C11) Document 09/19/18 21:46 [id number] (Rec: 09/19/18 21:48 [id number] MED-C14) Document 09/20/18 03:53 [id number] (Rec: 09/20/18 03:54 [id number] MED-M11) Document 09/20/18 05:16 [id number] (Rec: 09/20/18 05:16 [id number] MED-C07) Document 09/20/18 14:00 [id number] (Rec: 09/20/18 15:21 [id number] MED-C11) Document 09/20/18 16:30 [id number] (Rec: 09/20/18 16:30 [id number] MED-M02) Document 09/21/18 05:14 [id number] (Rec: 09/21/18 05:15 [id number] MED-C12) Document 09/21/18 14:00 [id number] (Rec: 09/21/18 17:24 [id number] MED-C11) Document 09/21/18 21:31 [id number] (Rec: 09/21/18 21:37 [id number] MED-C09) Document 09/22/18 05:38 [id number] (Rec: 09/22/18 05:40 [id number] MED-C11) Document 09/22/18 14:00 [id number] (Rec: 09/22/18 17:17 [id number] MED-C16) Document 09/22/18 22:00 [id number] (Rec: 09/22/18 22:23 [id number] MED-C11) Document 09/23/18 06:00 [id number] (Rec: 09/23/18 06:04 [id number] MED-C11) - Physical Exam General Physical Exam Comment: She is warm and well perfused. She is uncomfortable and clearly distressed. General: No Cyanosis, No Anemia, No Jaundice, No Clubbing Lungs and Chest: Yes: Chest Expansion Full, Chest Expansion Symetrica, Percussion Note Resonant, Vessicular Breath Sounds. No: Crackles, Wheezes Heart Rate and Rhythm: Irregular - extrasystoles Additional Cardiovascular: Yes: Normal Heart Sounds. No: Heart Murmur, Pedal Edema Abdominal Exam: Yes: Distention - marked distension, Soft, Abdominal Tenderness. 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) Hypokalemia (Acute) Lane syndrome (Acute) Malignant neoplasm of pancreas, part unspecified (Acute) Nausea & vomiting (Acute) Nutrition deficiency due to insufficient food (Acute) Adrenal nodule (Chronic) Anticoagulation adequate (Chronic) Anxiety (Chronic) Luna aneurysm (Chronic) Carcinoma of breast (Chronic) Cardiomyopathy (Chronic) Cerebrovascular disease (Chronic) Essential hypertension (Chronic) Hx of DVT (Chronic) Hx right colectomy for colon cancer (Chronic) Hyperlipidemia (Chronic) Hypothyroidism (Chronic) Implanted cardiac defibrillator (Chronic) Non-ischemic cardiomyopathy (Chronic) Osteoporosis (Chronic) Plan: Abdominal pain (Acute)Anastomotic ulcer S/P gastric bypass (Acute)Esophagitis ( Acute)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 We are going to go back to NG tube suction and IVF. I will adjust the morphine based upon the degree of symptomatic relief to this. I will move to parenteral medications. I spoke with Dr. Chemo Almonte - he will visit with Ms. Good: * He thinks that [facility] will be able to be more aggressive with conservative measures and do much short of surgery * He wants to delay TPN if at all possible * He agrees with the above plan Malignant neoplasm of pancreas, part unspecified (Acute) Ms. Good wants to know the outcome of the pathological evaluation to determine if she wants palliative vs more aggressive therapy Hypokalemia (Acute) I will give her a further potassium bolus and up the IV component in the LR. Lane syndrome (Acute) Comorbidities Nutrition deficiency due to insufficient food (Acute) Dr. Chemo Almonte is discussing this further with the patient Essential hypertension (Chronic) I will re-establish parenteral treatment Anticoagulation adequate (Chronic) continue current Rx Secondary diagnoses: Adrenal nodule (Chronic) Anxiety (Chronic) Luna aneurysm (Chronic) Carcinoma of breast (Chronic) Cardiomyopathy (Chronic) Cerebrovascular disease (Chronic) Hx of DVT (Chronic) Hx right colectomy for colon cancer (Chronic) Hyperlipidemia (Chronic) Hypothyroidism (Chronic) Implanted cardiac defibrillator (Chronic) Non-ischemic cardiomyopathy (Chronic) Osteoporosis (Chronic) I spoke to Apurva Good and her . I also spoke with her on his own. She has reservations about returning to [facility]: * She was 50/50 as to whether to have the Whipple procedure in the first place * She is fearful of further surgery - her mother on the OR table and her had a full cardiac arrest during hip surgery and was bought around. * She is asking about palliative care. Dr. Almonte is going to speak with her - his point of view is that there is more aggressive conservative therapy at [facility] - dilatation of the stenotic anastamosis etc. I discussed pain control - we will attempt the NG tube first and move perhaps to a [employer] if that doesn't take care of the pain.
[2018-09-23] MEDS ORDERED: Metoprolol Tartrate IV* 1 MG/ML 5 ML VIAL IV PRN (10:36)
[2018-09-23] MEDS ORDERED: KCL 20 MEQ/100 ML IVPREMIX* 20 MEQ/100 ML BAG IV ONE (10:39)
[2018-09-23] MEDS ORDERED: Lorazepam PYXIS KEY PRN (10:45)
[2018-09-23] MEDS: LORazepam INJ* 2 MG/ML 1 ML VIAL IV PUSH PRN ×2 (11:26→17:59)
[2018-09-23] MEDS: Potassium Chloride IV* 40 MEQ in Lactated Ringers 1000 ML Bag* 1,000 ML IVPB SCH ×3 (12:05→23:40)
[2018-09-23] MEDS: Enalaprilat IV* 1.25 MG/ML 1 ML VIAL (1.25 MG) IV SCH ×3 (12:06→23:40)
--- NOTE | 2018-09-23 12:47 | PN ---
Progress Note - Progress Note Date of Service: 09/23/18 Note: GI Follow Up Note S: Had been doing well until yesterday evening, tolerated liquids with no issue when we met on 09/22 early afternoon. In evening began to have increasing pain and distention requiring morphine. NG placed with 1800cc out in just a little over an hour. Patient feels much better at this time with pain back to baseline. Passing flatus, had bm yesterday. O: VS: 156/67, P- 77, R-16, T 97.2, 95% RA Gen: alert and oriented x3, nad HEENT: AT/NC, NG in place light liquid brown/green output. CVS: RRR s1s2 Resp: CTA b/l Abd: soft, mild diffuse tenderness, BS hypoactive but present, surgical site C/D /I Ext: no c/c/e Skin: a few scattered ecchymoses Labs: Hgb 10.6, Plt 339, K-3.4, CO2 17, BUN 7, Cr 0.64 A/P 77 yr old female s/p Whipple on 09/10/18 Dr. Zaid Pagan [facility], admitted with n/v abd distention on 09/18 and found to have anastomotic ulceration GJ on 09/20 on EGD. Impression Pancreatic CA s/p Whipple, pathology unknown Abdominal distention Anastomotic gastro-jejunal ulceration, no gross stricture but was decompressed with NG prior to EGD N/V Abdominal pain Recommendations: Has been on PPI gtt, liquids and doing well until last evening. Developed reoccurrence, NG back in and 1800cc out in a little over an hour. Feels much better now. Recommendation would be to return to for further therapy having failed conservative RX here. More information in database would be helpful in her decision process including pathology of surgery which is unknown at this time, and what could offer for non surgical options. She is hesitant about further surgical therapy. At this time we seem to have passed the acute phase of distention but she ultimately likely needs definitive therapy at [facility]. I have a call out to Zaid Pagan team to hopefully obtain further information so Apurva can make an informed decision thats right for her. Case discussed with Dr. Young earlier today, input appreciated. Chemo Almonte DO 09/23/18 12:56
[2018-09-23] MEDS: Enoxaparin(*) 40 MG/0.4 ML SYR SUBCUT SCH (23:41)
[2018-09-24] MEDS: Enalaprilat IV* 1.25 MG/ML 1 ML VIAL (1.25 MG) IV SCH ×4 (05:06→22:05)
[2018-09-24 07:59] LABS: ABS Basophils 0 10^3/ul (0-0.2); ABS Eosinophils 0.2 10^3/ul (0-0.6); ABS Monocytes 0.9 10^3/ul (0-0.8); ABS Neutrophils 6.4 10^3/ul (1.5-7.7); ABS Nucleated RBC 0 10^3/ul; Eosinophil % 2.1 %; Hematocrit 29 % (33-41); Hemoglobin 10.1 g/dL (12.0-16.0); Lymphocyte % 11.3 %; Mean Corpuscular HGB Conc 35 g/dL (31-36); Mean Corpuscular Hemoglobin 32 pg (27-31); Mean Corpuscular Volume 92 fL (80-97); Mean Platelet Volume 8.4 fL (7.4-10.4); Nucleated Red Blood Cells % 0; Platelet Count 327 10^3/uL (150-450); Red Blood Count 3.18 10^6 /uL (3.70-4.87); Red Cell Distribution Width 15 % (10.5-15); White Blood Count 8.5 10^3/uL (3.5-10.8)
[2018-09-24 08:13] LABS: BUN/Creatinine Ratio 12.1 (8-20); Calcium 8.3 mg/dL (8.6-10.3); EGFR African American 121.3 (>60); EGFR Non-African American 100.3 (>60); Potassium 3.9 mmol/L (3.5-5.0)
[2018-09-24] MEDS: Morphine INJ* 2 MG/ML 1 ML SYRINGE (TWO MG - NEW SYRINGE VERSION) IV PRN ×5 (08:57→22:07)
[2018-09-24] MEDS: Pantoprazole* 80 mg IN NS 80 MG/250 ML BAG IVPB SCH ×2 (11:33→22:16)
[2018-09-24 12:25] LABS: Free T4 1.18 ng/dL (0.61-1.12)
[2018-09-24] MEDS: Potassium Chloride IV* 40 MEQ in Lactated Ringers 1000 ML Bag* 1,000 ML IVPB SCH (13:24)
[2018-09-24] MEDS: AZITHROMYCIN IVPB SCH (13:58)
[2018-09-24] MEDS: NS IVPB SCH (13:58)
[2018-09-24] MEDS ORDERED: Metoclopramide IV* 5 MG/ML 2 ML VIAL IV SLOW PU SCH (14:00)
[2018-09-24] MEDS: LORazepam INJ* 2 MG/ML 1 ML VIAL IV PUSH PRN (20:18)
[2018-09-24] MEDS: Enoxaparin(*) 40 MG/0.4 ML SYR SUBCUT SCH (20:19)
[2018-09-25] MEDS: Morphine INJ* 2 MG/ML 1 ML SYRINGE (TWO MG - NEW SYRINGE VERSION) IV PRN ×3 (00:10→04:15)
[2018-09-25] MEDS: LORazepam INJ* 2 MG/ML 1 ML VIAL IV PUSH PRN (00:19)
[2018-09-25] MEDS: Potassium Chloride IV* 40 MEQ in Lactated Ringers 1000 ML Bag* 1,000 ML IVPB SCH ×2 (03:43→21:34)
[2018-09-25] MEDS: Enalaprilat IV* 1.25 MG/ML 1 ML VIAL (1.25 MG) IV SCH ×4 (04:15→21:33)
[2018-09-25 09:12] LABS: Hematocrit 32 % (33-41); Hemoglobin 10.8 g/dL (12.0-16.0); Mean Corpuscular HGB Conc 33 g/dL (31-36); Mean Corpuscular Hemoglobin 31 pg (27-31); Mean Corpuscular Volume 92 fL (80-97); Mean Platelet Volume 8.5 fL (7.4-10.4); Platelet Count 365 10^3/uL (150-450); Red Blood Count 3.53 10^6 /uL (3.70-4.87); Red Cell Distribution Width 14 % (10.5-15); White Blood Count 10.2 10^3/uL (3.5-10.8)
[2018-09-25 09:37] LABS: Albumin 3.4 g/dL (3.2-5.2); Albumin/Globulin Ratio 1.3 (1-3); BUN/Creatinine Ratio 5.8 (8-20); C Reactive Protein 109.77 mg/L (<8.01); Calcium 8.8 mg/dL (8.6-10.3); EGFR African American 137.6 (>60); EGFR Non-African American 113.8 (>60); Globulin 2.6 g/dL (2-4); Potassium 3.6 mmol/L (3.5-5.0); Total Bilirubin 0.7 mg/dL (0.2-1.0)
[2018-09-25 09:46] LABS: TSH (Thyroid Stimulating Horm) 4.62 mcIU/mL (0.34-5.60)
[2018-09-25] MEDS: Pantoprazole* 80 mg IN NS 80 MG/250 ML BAG IVPB SCH ×2 (11:37→23:38)
[2018-09-25] MEDS: AZITHROMYCIN IVPB SCH (14:11)
[2018-09-25] MEDS: NS IVPB SCH (14:11)
[2018-09-25] MEDS: Enoxaparin(*) 40 MG/0.4 ML SYR SUBCUT SCH (21:33)
[2018-09-26] MEDS: Enalaprilat IV* 1.25 MG/ML 1 ML VIAL (1.25 MG) IV SCH ×4 (03:20→21:01)
[2018-09-26 10:21] LABS: Uric Acid 8.3 mg/dL (2.3-6.6)
[2018-09-26] MEDS: Pantoprazole* 80 mg IN NS 80 MG/250 ML BAG IVPB SCH ×2 (11:10→11:30)
[2018-09-26] MEDS: Potassium Chloride IV* 40 MEQ in Lactated Ringers 1000 ML Bag* 1,000 ML IVPB SCH ×2 (11:10→14:44)
[2018-09-26] MEDS: LORazepam INJ* 2 MG/ML 1 ML VIAL IV PUSH PRN (11:11)
--- NOTE | 2018-09-26 14:28 | PN ---
Progress Note - Progress Note Date of Service: 09/26/18 Note: S: Asked by Dr. Reed to see this patient for removal of staple, 14 d s/p Whipple procedure. She had removed the other oneal w/o difficulty. O: midline abd wound healing well; there is a remaining staple below the umbilicus; just above it there is superficial gapping of the incision- this was reinforced w/ 2 steristrips. The skin at the staple site was anesthetized with 2 cc of 1% plain lidocaine and the staple was manipulated and delivered. No complications. A/P: s/p staple removal; maintain steristrip reinforcement at area of gapping for 1 wk. OK to shower. Recall prn.
[2018-09-26] MEDS ORDERED: Heparin 2 UNITS/ML IVPREMIX* 1,000 ML IV ONE (15:40)
[2018-09-26] MEDS: Morphine INJ* 2 MG/ML 1 ML SYRINGE (TWO MG - NEW SYRINGE VERSION) IV PRN ×2 (16:50→20:59)
[2018-09-26] MEDS: AZITHROMYCIN IVPB SCH (16:56)
[2018-09-26] MEDS: NS IVPB SCH (16:56)
[2018-09-26] MEDS ORDERED: TPN* 24 HR with Dextrose 50% Water* 500 ML, Amino Acid Infusion 10%* 850 ML, Sterile Wa... CENTR SCH ×12 (17:00)
[2018-09-26] MEDS: Metoprolol Tartrate IV* 1 MG/ML 5 ML VIAL IV SCH ×2 (17:34→21:01)
[2018-09-26] MEDS: Enoxaparin(*) 40 MG/0.4 ML SYR SUBCUT SCH (21:02)
[2018-09-27] MEDS: Morphine INJ* 2 MG/ML 1 ML SYRINGE (TWO MG - NEW SYRINGE VERSION) IV PRN ×5 (00:14→21:23)
[2018-09-27] MEDS: Pantoprazole* 80 mg IN NS 80 MG/250 ML BAG IVPB SCH ×2 (00:14→11:10)
[2018-09-27] MEDS: Enalaprilat IV* 1.25 MG/ML 1 ML VIAL (1.25 MG) IV SCH ×4 (03:21→21:03)
[2018-09-27] MEDS: Metoprolol Tartrate IV* 1 MG/ML 5 ML VIAL IV SCH ×4 (03:21→19:57)
[2018-09-27] MEDS: Potassium Chloride IV* 40 MEQ in Lactated Ringers 1000 ML Bag* 1,000 ML IVPB SCH (05:48)
[2018-09-27 06:37] LABS: Albumin 2.8 g/dL (3.2-5.2); Albumin/Globulin Ratio 1.1 (1-3); BUN/Creatinine Ratio 26.1 (8-20); Calcium 8.4 mg/dL (8.6-10.3); EGFR African American 158.6 (>60); Globulin 2.5 g/dL (2-4); Magnesium 1.4 mg/dL (1.9-2.7); Phosphorus 2.1 mg/dL (2.5-5.0); Potassium 3.7 mmol/L (3.5-5.0); Total Bilirubin 0.5 mg/dL (0.2-1.0); Total Protein 5.3 g/dL (6.4-8.9)
[2018-09-27] MEDS ORDERED: Lidocaine 1%* 5 ML VIAL INJ ONE (09:32)
[2018-09-27] MEDS ORDERED: Dextrose 50% Syringe 50 ML* 25 GM/50 ML SYRINGE IV PUSH PRN (09:38)
[2018-09-27 12:21] LABS: Body Fluid Source Synovial Fluid
[2018-09-27] MEDS: AZITHROMYCIN IVPB SCH (14:04)
[2018-09-27] MEDS: NS IVPB SCH (14:04)
[2018-09-27] MEDS: Insulin LISPRO* 1 UNITS UNIT SUBCUT SCH ×2 (14:05→18:25)
[2018-09-27 14:23] LABS: Body Fluid Mono 3 %
[2018-09-27] MEDS: TPN CENTRAL STANDARD BASE A CENTR SCH ×12 (18:25)
[2018-09-27] MEDS: Enoxaparin(*) 40 MG/0.4 ML SYR SUBCUT SCH (20:00)
[2018-09-28] MEDS: Pantoprazole* 80 mg IN NS 80 MG/250 ML BAG IVPB SCH ×2 (00:02→10:13)
[2018-09-28] MEDS: Insulin LISPRO* 1 UNITS UNIT SUBCUT SCH ×5 (00:41→23:54)
[2018-09-28] MEDS: Metoprolol Tartrate IV* 1 MG/ML 5 ML VIAL IV SCH ×4 (02:14→19:53)
[2018-09-28] MEDS: Enalaprilat IV* 1.25 MG/ML 1 ML VIAL (1.25 MG) IV SCH ×4 (03:07→20:39)
[2018-09-28] MEDS: Morphine INJ* 2 MG/ML 1 ML SYRINGE (TWO MG - NEW SYRINGE VERSION) IV PRN ×2 (03:19→09:54)
[2018-09-28 05:51] LABS: Albumin 2.5 g/dL (3.2-5.2); Calcium 7.8 mg/dL (8.6-10.3); Magnesium 1.7 mg/dL (1.9-2.7); Potassium 3.8 mmol/L (3.5-5.0); Total Bilirubin 0.4 mg/dL (0.2-1.0)
[2018-09-28 05:58] LABS: Albumin/Globulin Ratio 1.1 (1-3); BUN/Creatinine Ratio 40.4 (8-20); EGFR African American 154.7 (>60); EGFR Non-African American 127.8 (>60); Globulin 2.2 g/dL (2-4); Phosphorus 2.9 mg/dL (2.5-5.0); Total Protein 4.7 g/dL (6.4-8.9)
[2018-09-28] MEDS ORDERED: Lidocaine 1%* 5 ML VIAL INJ ONE (09:00)
[2018-09-28] MEDS ORDERED: methylPREDNISolone ACETATE 80* 80 MG/ML 1 ML VIAL IM ONE (09:00)
[2018-09-28] MEDS: NS IVPB SCH (13:11)
[2018-09-28] MEDS: AZITHROMYCIN IVPB SCH (13:11)
[2018-09-28] MEDS: Enoxaparin(*) 80 MG/0.8 ML SYR SUBCUT SCH (15:57)
[2018-09-28] MEDS: TPN CENTRAL STANDARD BASE A CENTR SCH ×12 (18:20)
[2018-09-29] MEDS: Metoprolol Tartrate IV* 1 MG/ML 5 ML VIAL IV SCH ×4 (02:28→22:33)
[2018-09-29] MEDS: Enalaprilat IV* 1.25 MG/ML 1 ML VIAL (1.25 MG) IV SCH ×4 (02:28→22:34)
[2018-09-29] MEDS: Enoxaparin(*) 80 MG/0.8 ML SYR SUBCUT SCH ×2 (02:33→14:15)
[2018-09-29 04:47] LABS: ABS Basophils 0 10^3/ul (0-0.2); ABS Eosinophils 0 10^3/ul (0-0.6); ABS Lymphocytes 0.6 10^3/ul (1.0-4.8); ABS Monocytes 0.7 10^3/ul (0-0.8); ABS Neutrophils 6.2 10^3/ul (1.5-7.7); ABS Nucleated RBC 0 10^3/ul; Eosinophil % 0.1 %; Hematocrit 28 % (33-41); Hemoglobin 9.4 g/dL (12.0-16.0); Lymphocyte % 7.6 %; Mean Corpuscular HGB Conc 34 g/dL (31-36); Mean Corpuscular Hemoglobin 31 pg (27-31); Mean Corpuscular Volume 91 fL (80-97); Mean Platelet Volume 7.9 fL (7.4-10.4); Nucleated Red Blood Cells % 0.1; Platelet Count 303 10^3/uL (150-450); Red Blood Count 3.07 10^6 /uL (3.70-4.87); Red Cell Distribution Width 15 % (10.5-15); White Blood Count 7.5 10^3/uL (3.5-10.8)
[2018-09-29 05:03] LABS: BUN/Creatinine Ratio 38.6 (8-20); EGFR African American 166.9 (>60); EGFR Non-African American 137.9 (>60); Magnesium 2.1 mg/dL (1.9-2.7); Phosphorus 2.6 mg/dL (2.5-5.0); Potassium 3.8 mmol/L (3.5-5.0)
[2018-09-29] MEDS: LORazepam INJ* 2 MG/ML 1 ML VIAL IV PUSH PRN (05:19)
[2018-09-29] MEDS: Insulin LISPRO* 1 UNITS UNIT SUBCUT SCH ×4 (05:20→23:08)
[2018-09-29] MEDS: Pantoprazole IV* 40 MG IV SCH (08:34)
[2018-09-29] MEDS ORDERED: Enalaprilat IV* 1.25 MG/ML 1 ML VIAL (1.25 MG) IV SCH (12:23)
[2018-09-29] MEDS: NS IVPB SCH (14:15)
[2018-09-29] MEDS: AZITHROMYCIN IVPB SCH (14:15)
[2018-09-29] MEDS: Levothyroxine TAB* 50 MCG TAB PO SCH (14:16)
[2018-09-29] MEDS: Lisinopril TAB* 5 MG PO SCH ×2 (14:16→22:34)
[2018-09-29] MEDS: Liothyronine TAB* 5 MCG PO SCH (14:17)
[2018-09-29] MEDS: TPN CENTRAL STANDARD BASE A CENTR SCH ×12 (18:09)
[2018-09-29] MEDS: Metoprolol Succinate XL TAB* 50 MG PO SCH (22:33)
[2018-09-30] MEDS: Metoprolol Tartrate IV* 1 MG/ML 5 ML VIAL IV SCH ×4 (02:45→19:49)
[2018-09-30] MEDS: Enalaprilat IV* 1.25 MG/ML 1 ML VIAL (1.25 MG) IV SCH ×3 (02:46→14:19)
[2018-09-30] MEDS: Enoxaparin(*) 80 MG/0.8 ML SYR SUBCUT SCH ×2 (02:46→14:19)
[2018-09-30] MEDS: Levothyroxine TAB* 50 MCG TAB PO SCH (05:36)
[2018-09-30] MEDS: Insulin LISPRO* 1 UNITS UNIT SUBCUT SCH ×3 (05:45→17:17)
[2018-09-30] MEDS: Liothyronine TAB* 5 MCG PO SCH ×2 (08:35→12:06)
[2018-09-30] MEDS: Lisinopril TAB* 5 MG PO SCH ×2 (08:35→19:49)
[2018-09-30] MEDS: Metoprolol Succinate XL TAB* 50 MG PO SCH ×2 (08:35→19:49)
[2018-09-30] MEDS: Pantoprazole IV* 40 MG IV SCH (08:42)
[2018-09-30 09:35] LABS: Hematocrit 30 % (33-41); Hemoglobin 9.3 g/dL (12.0-16.0); Mean Corpuscular HGB Conc 31 g/dL (31-36); Mean Corpuscular Hemoglobin 42 pg (27-31); Mean Corpuscular Volume 133 fL (80-97); Platelet Count 244 10^3/uL (150-450); Red Blood Count 2.21 10^6 /uL (3.70-4.87); Red Cell Distribution Width 18 % (10.5-15); White Blood Count 5.5 10^3/uL (3.5-10.8)
[2018-09-30 09:59] LABS: Immature Granulocytes 11 % (0-9); Lymphocytes % 21 %; Monocytes % 2 %; Neutrophil % 66 %; Nucleated Red Blood Cells/100 1 (0-0)
[2018-09-30 10:00] LABS: ABS Neutrophils 4.24 10^3/ul (1.5-7.7)
--- NOTE | 2018-09-30 10:07 | PN ---
Subjective - Subjective Reason for Note: Progress Note History: She has developed diarrhea/loose stool. She is continuing to take oral medications and some liquids by mouth. She has had no abdominal pain, nausea or vomiting. Her right knee pain has resolved, there remains some swelling. 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 Malignant neoplasm of pancreas, part unspecified (Acute) Nausea & vomiting (Acute) R11.2 Nutrition deficiency due to insufficient food (Acute) E63.9, T73.0XXA Adrenal nodule (Chronic) E27.9 Anticoagulation adequate (Chronic) Z79.01 Anxiety (Chronic) F41.9 Luna aneurysm (Chronic) I67.1 Carcinoma of breast (Chronic) C50.919 Cardiomyopathy (Chronic) I42.9 Cerebrovascular disease (Chronic) I67.9 Essential hypertension (Chronic) I10 Hx of DVT (Chronic) Hx right colectomy for colon cancer (Chronic) Hyperlipidemia (Chronic) E78.5 Hypothyroidism (Chronic) E03.9 Implanted cardiac defibrillator (Chronic) Non-ischemic cardiomyopathy (Chronic) I42.8 Osteoporosis (Chronic) M81.0 Current Medications: Current Medications Acetaminophen (Tylenol Tab*) 650 mg PO Q6H PRN PRN Reason: FEVER/PAIN Dextrose (D50w Syringe 50 Ml*) 12.5 gm IV PUSH .FOR FS < 60 - SS PRN PRN Reason: FS < 60 Enalaprilat (Vasotec Iv*) 2.5 mg IV 0300,0900,1500,2100 YOLANDA Last Admin: 09/30/18 08:42 Dose: 2.5 mg Enoxaparin Sodium (Lovenox(*)) 70 mg SUBCUT Q12H YOLANDA Last Admin: 09/30/18 02:46 Dose: 70 mg Heparin Sodium (Porcine) (Heparin Flush Picc/Ml/Cvc(*)) 0 ml FLUSH 0600,1800 YOLANDA; Protocol Last Admin: 09/30/18 08:42 Dose: 1 ml Azithromycin 250 mg/ Sodium (Chloride) 250 mls @ 250 mls/hr IVPB Q24H [facility] Last Admin: 09/29/18 14:15 Dose: 250 mls/hr Dextrose 500 ml/ Amino Acids 850 ml/ Sterile Water 150 ml/Fat Emulsion Intravenous 250 ml/ Sodium Chloride 150 meq/Potassium Chloride 50 meq/Potassium Phosphate 20 mmole/Calcium Gluconate 10 meq/Magnesium Sulfate 20 meq/ Multivitamins 10 ml/ Trace Metals 1 ml/ Nutrition ( Parenteral) 1,856.5978 mls @ 77.358 mls/hr CENTR 1700 [facility]; Protocol Last Admin: 09/29/18 18:09 Dose: 77.358 mls/hr Insulin Human Lispro (Humalog*) 0 - 5 units SUBCUT Q6HR [facility]; Protocol Last Admin: 09/30/18 05:45 Dose: 1 units Levothyroxine Sodium (Synthroid Tab*) 50 mcg PO 0600 [facility] Last Admin: 09/30/18 05:36 Dose: 50 mcg Liothyronine Sodium (Cytomel Tab*) 5 mcg PO 0900,1200 [facility] Last Admin: 09/30/18 08:35 Dose: 5 mcg Lisinopril (Prinivil Tab*) 15 mg PO 0900 [facility] Last Admin: 09/30/18 08:35 Dose: 15 mg Lisinopril (Prinivil Tab*) 10 mg PO 2100 [facility] Last Admin: 09/29/18 22:34 Dose: 10 mg Lorazepam (Ativan Inj*) 0.5 mg IV PUSH Q4H PRN PRN Reason: ANXIETY Last Admin: 09/29/18 05:19 Dose: 0.5 mg Metoprolol Succinate (Toprol Xl Tab*) 50 mg PO BID [facility] Last Admin: 09/30/18 08:35 Dose: 50 mg Metoprolol Tartrate (Lopressor Iv*) 10 mg IV Q6H [facility] Last Admin: 09/30/18 08:42 Dose: 10 mg Miscellaneous (Ativan Pyxis Dobbins) 1 ea N/A .PYXIS DOBBINS PRN PRN Reason: PER PROTOCOL Morphine Sulfate (Morphine Inj (Syringe))*) 2 mg IV Q2H PRN PRN Reason: PAIN SEVERE Last Admin: 09/28/18 09:54 Dose: 2 mg Ondansetron HCl (Zofran Inj*) 4 mg IV Q4H PRN PRN Reason: NAUSEA Last Admin: 09/23/18 09:19 Dose: 4 mg Pantoprazole Sodium (Protonix Iv*) 40 mg IV DAILY YOLANDA Last Admin: 09/30/18 08:42 Dose: 40 mg Prochlorperazine Edisylate (Compazine Inj*) 10 mg IV Q6H PRN PRN Reason: NAUSEA/VOMITING Last Admin: 09/23/18 00:22 Dose: 10 mg Home Medications: Home Medications Medication Instructions Recorded Confirmed Type Metoprolol Succinate XL TAB* 50 mg PO BID 06/30/12 09/18/18 History [Toprol XL TAB*] Liothyronine TAB* [Cytomel TAB*] 10 mcg PO DAILY 12/27/13 09/18/18 History Levothyroxine TAB* [Synthroid TAB*] 50 mcg PO DAILY 12/08/17 09/18/18 History Lisinopril TAB* [Prinivil TAB 5 5 mg PO QAM 12/08/17 09/18/18 History MG*] Lisinopril TAB* [Prinivil TAB 5 10 mg PO QPM 12/08/17 09/18/18 History MG*] Simvastatin TAB(NF) [Zocor 10 MG 10 mg PO BEDTIME 12/08/17 09/18/18 History (NF)] Acetaminophen [Tylenol] 325 - 650 mg PO Q6HR PRN 09/18/18 09/18/18 History Docusate Sodium [Colace] 100 mg PO SEE INSTRUCTIONS PRN 09/18/18 09/18/18 History Pantoprazole TAB * [Protonix TAB*] 40 mg PO DAILY 09/18/18 09/18/18 History Rivaroxaban TAB(*) [Xarelto 10 mg 10 mg PO DAILY 09/18/18 09/18/18 History (*)] oxyCODONE ORAL.SOLN* [Oxycodone 5 mg PO Q4H PRN #120 ml MDD 30 ml 09/18/1809/18 Rx ORAL.SOLN 5 mg/5 ml *] oxyCODONE TAB* [Roxycodone TAB 5 5 mg PO Q6H PRN 09/18/18 09/18/18 History mg*] Allergies: Allergies Allergy/AdvReac Type Severity Reaction Status Date / Time Iodinated Contrast- Oral and Allergy Hives Verified 09/27/18 09:25 IV Dye Penicillins Allergy Rash Verified 09/18/18 14:53 shellfish derived Allergy Hives Verified 09/27/18 09:26 Sulfa (Sulfonamide Allergy Rash Verified 09/18/18 14:53 Antibiotics) Objective - Vital Signs Vital Signs: Vital Signs 09/29/18 09/29/18 09/29/18 13:08 15:05 20:00 Temperature 97.5 F 97.4 F Pulse Rate 72 69 Respiratory 16 16 18 Rate Blood Pressure 143/71 156/80 (mmHg) O2 Sat by Pulse 95 97 Oximetry 09/29/18 09/29/18 09/30/18 20:25 23:12 02:35 Temperature 97.6 F 97.0 F Pulse Rate 72 67 Respiratory 18 19 Rate Blood Pressure 162/84 171/87 159/76 (mmHg) O2 Sat by Pulse 97 97 Oximetry 09/30/18 07:30 Temperature 97.9 F Pulse Rate 73 Respiratory 16 Rate Blood Pressure 155/74 (mmHg) O2 Sat by Pulse 98 Oximetry - Intake and Output Intake and Output: Intake & Output 09/27/18 09/28/18 09/29/18 09/30/18 11:59 11:59 11:59 11:59 Intake Total 2779 4087 3847 3612 Output Total 400 Balance 2779 4087 3847 3212 Weight 152 lb 149 lb 12.8 oz 151 lb 4.8 oz Intake: IV Fluids 2309 1849 3017 934 LR w/40K 2006 421 TPN 879 2692 934 azithromycin 250 protonix 303 549 75 IVPB 519 755 7453 TPN 1068 azithromycin 260 250 protonix 250 TPN/PPN 1578 Oral 220 105 979 3118 Output: Urine 400 Other: Estimated Void Medium Large Medium Large # Bowel Movements 0 0 1 Estimated Stool Amount Large # Voids 1 1 1 2 ADLs: Meal Record Start: 09/18/18 21: 01 Freq: DAILY@0900,1400,1800 Status: Active Protocol: Created 09/18/18 21:01 System (Rec: 09/18/18 21:01 System MED-C02) Document 09/19/18 09:00 [id number] (Rec: 09/19/18 10:06 [id number] MED-C11) Document 09/19/18 14:00 UXA0889 (Rec: 09/19/18 18:14 LEZ4104 MED-C04) Document 09/19/18 18:00 [id number] (Rec: 09/19/18 18:32 [id number] MED-C14) Document 09/20/18 09:00 UZH5603 (Rec: 09/20/18 10:30 BGI0795 MED-C09) Document 09/20/18 14:00 [id number] (Rec: 09/20/18 14:52 FID5735 MED-C11) Document 09/20/18 17:30 [id number] (Rec: 09/20/18 17:30 [id number] MED-C11) Document 09/21/18 09:00 [id number] (Rec: 09/21/18 13:35 QSB6649 MED-C09) Document 09/21/18 14:00 [id number] (Rec: 09/21/18 17:24 [id number] MED-C11) Document 09/21/18 18:00 ZLJ1057 (Rec: 09/21/18 20:01 [id number] MED-C09) Document 09/22/18 09:00 PFJ5987 (Rec: 09/22/18 11:32 FBC5220 MED-C11) Document 09/22/18 14:00 [id number] (Rec: 09/22/18 17:17 BZW9114 MED-C16) Document 09/22/18 18:00 [id number] (Rec: 09/22/18 18:18 [id number] MED-C16) Document 09/23/18 09:00 [id number] (Rec: 09/23/18 15:44 DNU2552 MED-M03) Document 09/23/18 18:00 ICH7380 (Rec: 09/23/18 19:25 [id number] MED-C11) Document 09/24/18 09:00 [id number] (Rec: 09/24/18 10:02 ULC0945 MED-C09) Document 09/24/18 14:00 TWS9739 (Rec: 09/24/18 14:22 FZN5718 MED-C09) Document 09/24/18 18:00 SFB4032 (Rec: 09/24/18 22:16 AFR1236 MED-C04) Document 09/25/18 09:00 VOL8627 (Rec: 09/25/18 13:02 UZF7463 MED-C11) Document 09/25/18 14:00 XTB3959 (Rec: 09/25/18 16:40 PXC5045 MED-C14) Document 09/25/18 14:00 SBC5668 (Rec: 09/25/18 16:40 RKF5736 MED-C11) Document 09/25/18 18:00 KUX9494 (Rec: 09/25/18 18:27 EOH4115 MED-C11) Document 09/26/18 09:00 SDJ1791 (Rec: 09/26/18 11:57 RYT4928 MED-C11) Document 09/26/18 14:00 EXM5295 (Rec: 09/26/18 14:18 [id number] MED-C09) Document 09/27/18 09:00 KUE9784 (Rec: 09/27/18 10:41 ZGR7372 MED-C05) Document 09/27/18 14:00 SGJ0480 (Rec: 09/27/18 14:09 VGK3114 MED-C05) Document 09/27/18 18:00 RHJ3272 (Rec: 09/27/18 18:21 NHU6897 MED-C05) Document 09/28/18 09:00 GJB5446 (Rec: 09/28/18 09:16 GHA0595 MED-C05) Document 09/28/18 13:49 HCF8694 (Rec: 09/28/18 13:50 MDN4535 MED-C05) Document 09/28/18 18:00 IBX8142 (Rec: 09/28/18 22:26 AFB1694 MED-C05) Document 09/29/18 09:00 DKK1731 (Rec: 09/29/18 13:53 HWU1396 MED-C11) Document 09/29/18 14:00 KVK9210 (Rec: 09/29/18 14:16 FFY3906 MED-C11) Document 09/29/18 18:00 JDF6169 (Rec: 09/29/18 18:17 UTU0879 MED-C11) Document 09/30/18 09:00 TYD8116 (Rec: 09/30/18 09:46 ZUV7974 MED-C25) Intake and Output Start: 09/18/18 14: 53 Freq: Status: Active Protocol: Created 09/18/18 14:53 System (Rec: 09/18/18 14:53 System ED-C24) Document 09/23/18 23:10 PUG1535 (Rec: 09/24/18 02:46 KFL6775 MED-C12) Intake and Output Start: 09/18/18 21: 01 Freq: DAILY@0600,1400,2200 Status: Active Protocol: Created 09/18/18 21:01 System (Rec: 09/18/18 21:01 System MED-C02) Document 09/18/18 22:00 NSP6519 (Rec: 09/18/18 22:38 NGT4601 MED-C14) Document 09/19/18 03:22 QRW7252 (Rec: 09/19/18 03:22 CHM1235 MED-M19) Document 09/19/18 04:47 OYD2927 (Rec: 09/19/18 04:48 RVD9999 MED-C11) Document 09/19/18 14:00 LOH3738 (Rec: 09/19/18 14:24 DNF0474 MED-C11) Document 09/19/18 21:46 LIE6939 (Rec: 09/19/18 21:48 YCJ4967 MED-C14) Document 09/20/18 03:53 ZSO3425 (Rec: 09/20/18 03:54 PRP2453 MED-M11) Document 09/20/18 05:16 WIF6718 (Rec: 09/20/18 05:16 THG0376 MED-C07) Document 09/20/18 14:00 OIO4700 (Rec: 09/20/18 15:21 VIU5344 MED-C11) Document 09/20/18 16:30 KYI0996 (Rec: 09/20/18 16:30 DPD4673 MED-M02) Document 09/21/18 05:14 DVA6666 (Rec: 09/21/18 05:15 HGX4069 MED-C12) Document 09/21/18 14:00 CCJ1779 (Rec: 09/21/18 17:24 EUZ4912 MED-C11) Document 09/21/18 21:31 ZMN0513 (Rec: 09/21/18 21:37 CLI6252 MED-C09) Document 09/22/18 05:38 PET3772 (Rec: 09/22/18 05:40 QPQ0331 MED-C11) Document 09/22/18 14:00 AFG2168 (Rec: 09/22/18 17:17 FGX1501 MED-C16) Document 09/22/18 22:00 JMI2281 (Rec: 09/22/18 22:23 NXH6530 MED-C11) Document 09/23/18 06:00 EAT5669 (Rec: 09/23/18 06:04 YTQ8019 MED-C11) Document 09/23/18 14:00 DFG9963 (Rec: 09/23/18 15:43 IXF4822 MED-M03) Document 09/24/18 06:00 RYT4220 (Rec: 09/24/18 06:45 TKA6700 MED-C11) Document 09/24/18 10:25 HHE6809 (Rec: 09/24/18 10:25 BWN4603 MED-C07) Document 09/24/18 14:00 VRA1922 (Rec: 09/24/18 14:02 FCX3039 MED-C09) Document 09/24/18 16:18 OZX4677 (Rec: 09/24/18 16:18 UQF1095 MED-C07) Document 09/24/18 22:00 XKY1812 (Rec: 09/24/18 23:15 UYV5364 MED-C11) Document 09/25/18 04:20 ADF5164 (Rec: 09/25/18 04:21 GIG8710 MED-M18) Document 09/25/18 05:21 ELL6567 (Rec: 09/25/18 05:22 PBR2874 MED-C09) Document 09/25/18 14:00 RBH6317 (Rec: 09/25/18 14:08 FSE4971 MED-C09) Document 09/25/18 22:00 VIB3536 (Rec: 09/25/18 22:03 BGD1673 MED-C15) Document 09/26/18 05:11 VWU3880 (Rec: 09/26/18 05:12 VUD4988 MED-C11) Document 09/26/18 14:00 HEA7822 (Rec: 09/26/18 15:38 BAV6523 MED-C09) Document 09/26/18 21:51 HQB3147 (Rec: 09/26/18 22:11 GYZ8240 MED-C07) Document 09/27/18 05:38 VQY5257 (Rec: 09/27/18 05:39 JSC0361 MED-C07) Document 09/27/18 14:00 HWA1183 (Rec: 09/27/18 14:11 MER4844 MED-C05) Document 09/27/18 21:47 MZU1422 (Rec: 09/27/18 21:48 FOG9272 MED-C13) Document 09/28/18 05:14 LKJ2280 (Rec: 09/28/18 05:15 NMW9977 MED-C13) Document 09/28/18 13:49 ZIQ8823 (Rec: 09/28/18 13:50 FIM7985 MED-C05) Document 09/28/18 22:00 VSB9483 (Rec: 09/28/18 22:31 PIZ7482 MED-C05) Document 09/29/18 06:00 KTM1139 (Rec: 09/29/18 06:03 KKG1038 MED-C02) Document 09/29/18 13:53 YDZ6347 (Rec: 09/29/18 13:54 UUQ0212 MED-C11) Document 09/29/18 21:22 NOZ9181 (Rec: 09/29/18 21:22 IGA9435 MED-C11) Document 09/30/18 05:52 GLX9487 (Rec: 09/30/18 05:53 EOJ8663 MED-C11) - Physical Exam General Physical Exam Comment: Warm and well perfused, hydrated, hemodynamically stable and conversational. Right knee not warm, slight swelling General: No Cyanosis, No Anemia, No Jaundice, No Clubbing Skin: Normal: Rash Lungs and Chest: Yes: Chest Expansion Full, Chest Expansion Symetrica, Percussion Note Resonant, Vessicular Breath Sounds. No: Crackles, Wheezes Heart Rate and Rhythm: Regular Additional Cardiovascular: Yes: Normal Heart Sounds. No: Heart Murmur, Pedal Edema Abdominal Exam: Yes: Soft, Bowel Sounds Present. No: Distention, Abdominal Tenderness Results - Results Lab Results: Laboratory Results - last 24 hr 09/27/18 09/29/18 09/29/18 11:35 12:22 18:18 WBC RBC Hgb Hct MCV MCH MCHC RDW Plt Count MPV Neut % (Auto) Lymph % (Auto) [place] % (Auto) Eos % (Auto) Baso % (Auto) Absolute Neuts (auto) Absolute Lymphs (auto) Absolute Monos (auto) Absolute Eos (auto) Absolute Basos (auto) Absolute Nucleated RBC Nucleated RBC % POC Glucose (mg/dL) 142 H 170 H Miscellaneous Test See comment 09/29/18 09/30/18 09/30/18 23:05 05:28 05:30 WBC 5.5 RBC 2.21 L Hgb 9.3 L Hct 30 L MCV 133 H MCH 42 H MCHC 31 RDW 18 H Plt Count 244 MPV 10.0 Neut % (Auto) Not Reportable Lymph % (Auto) Not Reportable [place] % (Auto) Not Reportable Eos % (Auto) Not Reportable Baso % (Auto) Not Reportable Absolute Neuts (auto) Not Reportable Absolute Lymphs (auto) Not Reportable Absolute Monos (auto) Not Reportable Absolute Eos (auto) Not Reportable Absolute Basos (auto) Not Reportable Absolute Nucleated RBC Not Reportable Nucleated RBC % Not Reportable POC Glucose (mg/dL) 147 H 169 H Miscellaneous Test Assessment - Problem List Assessment: Patient Problems Abdominal pain (Acute) Anastomotic ulcer S/P gastric bypass (Acute) Esophagitis (Acute) History of Dariusz-en-Y gastric bypass (Acute) History of partial pancreatectomy (Acute) Hypokalemia (Acute) Inflammation of joint of right knee (Acute) Lane syndrome (Acute) Malignant neoplasm of pancreas, part unspecified (Acute) Nausea & vomiting (Acute) Nutrition deficiency due to insufficient food (Acute) Adrenal nodule (Chronic) Anticoagulation adequate (Chronic) Anxiety (Chronic) Luna aneurysm (Chronic) Carcinoma of breast (Chronic) Cardiomyopathy (Chronic) Cerebrovascular disease (Chronic) Essential hypertension (Chronic) Hx of DVT (Chronic) Hx right colectomy for colon cancer (Chronic) Hyperlipidemia (Chronic) Hypothyroidism (Chronic) Implanted cardiac defibrillator (Chronic) Non-ischemic cardiomyopathy (Chronic) Osteoporosis (Chronic) Plan: Abdominal pain (Acute) anastomotic ulcer S/P gastric bypass (Acute)Esophagitis ( Acute)History of Dariusz-en-Y gastric bypass (Acute) History of partial pancreatectomy (Acute) Malignant neoplasm of pancreas, part unspecified (Acute) She is doing better with this - she has had no further pain, nausea or vomiting. She has developed diarrhea - this may be due to the pro-kinetic effect of the azithromycin. Hypokalemia (Acute) not a current issue Inflammation of joint of right knee (Acute) Resolving Nutrition deficiency due to insufficient food (Acute) She is tolerating TPN. She is managing to keep down oral medications secondary diagnoses: All stable. DVT right arm. Lane syndrome (Acute) Adrenal nodule (Chronic) Anticoagulation adequate (Chronic) Anxiety (Chronic) Luna aneurysm (Chronic) Carcinoma of breast (Chronic) Cardiomyopathy (Chronic) Cerebrovascular disease (Chronic) Essential hypertension (Chronic) Hx of DVT (Chronic) Hx right colectomy for colon cancer (Chronic) Hyperlipidemia (Chronic) Hypothyroidism (Chronic) Implanted cardiac defibrillator (Chronic) Non-ischemic cardiomyopathy (Chronic) Osteoporosis (Chronic) I have encouraged her to get out of bed. I answered her questions.
[2018-09-30] MEDS ORDERED: Lorazepam PYXIS KEY PRN (10:08)
[2018-09-30] MEDS: AZITHROMYCIN IVPB SCH (14:19)
[2018-09-30] MEDS: NS IVPB SCH (14:19)
[2018-09-30] MEDS: TPN CENTRAL STANDARD BASE A CENTR SCH ×12 (17:17)
[2018-09-30] MEDS: Enalaprilat IV* 1.25 MG/ML 2 ML VIAL (2.5 MG) IV SCH (22:04)
[2018-10-01] MEDS: Insulin LISPRO* 1 UNITS UNIT SUBCUT SCH ×4 (00:30→18:27)
[2018-10-01] MEDS: Enalaprilat IV* 1.25 MG/ML 2 ML VIAL (2.5 MG) IV SCH ×2 (02:19→11:02)
[2018-10-01] MEDS: LORazepam INJ* 2 MG/ML 1 ML VIAL IV PUSH PRN (02:20)
[2018-10-01] MEDS: Enoxaparin(*) 80 MG/0.8 ML SYR SUBCUT SCH ×2 (02:21→15:07)
[2018-10-01] MEDS: Metoprolol Tartrate IV* 1 MG/ML 5 ML VIAL IV SCH ×5 (02:21→19:53)
[2018-10-01 05:46] LABS: Hematocrit 29 % (33-41); Hemoglobin 9.9 g/dL (12.0-16.0); Mean Corpuscular HGB Conc 34 g/dL (31-36); Mean Corpuscular Hemoglobin 33 pg (27-31); Mean Corpuscular Volume 95 fL (80-97); Mean Platelet Volume 8.4 fL (7.4-10.4); Platelet Count 323 10^3/uL (150-450); Red Blood Count 3.05 10^6 /uL (3.70-4.87); Red Cell Distribution Width 15 % (10.5-15); White Blood Count 6.5 10^3/uL (3.5-10.8)
[2018-10-01] MEDS: Levothyroxine TAB* 50 MCG TAB PO SCH (06:06)
[2018-10-01 06:29] LABS: ABS Basophils 0 10^3/ul (0-0.2); ABS Eosinophils 0.1 10^3/ul (0-0.6); ABS Lymphocytes 0.9 10^3/ul (1.0-4.8); ABS Monocytes 0.7 10^3/ul (0-0.8); ABS Neutrophils 4.8 10^3/ul (1.5-7.7); ABS Nucleated RBC 0 10^3/ul; Lymphocyte % 14.2 %; Nucleated Red Blood Cells % 0.2
[2018-10-01] MEDS: Metoprolol Succinate XL TAB* 50 MG PO SCH ×2 (11:02→21:07)
[2018-10-01] MEDS: Pantoprazole IV* 40 MG IV SCH (11:02)
[2018-10-01] MEDS: amLODIPine TAB* 5 MG PO SCH (11:03)
[2018-10-01] MEDS: Lisinopril TAB* 5 MG PO SCH ×2 (11:03→21:08)
[2018-10-01] MEDS: Liothyronine TAB* 5 MCG PO SCH ×2 (11:04→15:06)
[2018-10-01] MEDS: Enalaprilat IV* 1.25 MG/ML 1 ML VIAL (1.25 MG) IV SCH ×2 (15:21→21:03)
[2018-10-01 16:42] LABS: Urine Appearance Clear; Urine Bacteria 1+ (Absent); Urine Bilirubin Negative (Negative); Urine Blood 2+ (Negative); Urine Color Yellow; Urine Glucose Negative (Negative); Urine Ketones Negative (Negative); Urine Nitrite Negative (Negative); Urine Protein Negative (Negative); Urine Red Blood Cell 2+(6-10/hpf) (Absent); Urine Specific Gravity 1.004 (1.010-1.030); Urine Squamous Epithelial Cell Present (Absent); Urine Urobilinogen Negative (Negative); Urine White Blood Cell 3+(>20/hpf) (Absent)
[2018-10-01] MEDS: TPN CENTRAL STANDARD BASE A CENTR SCH ×12 (17:45)
[2018-10-01] MEDS: LORazepam TAB(*) 0.5 MG PO PRN (21:08)
[2018-10-02] MEDS: Insulin LISPRO* 1 UNITS UNIT SUBCUT SCH ×4 (00:29→17:57)
[2018-10-02] MEDS: Metoprolol Tartrate IV* 1 MG/ML 5 ML VIAL IV SCH ×2 (02:07→08:47)
[2018-10-02] MEDS: Enalaprilat IV* 1.25 MG/ML 1 ML VIAL (1.25 MG) IV SCH ×2 (03:37→08:47)
[2018-10-02] MEDS: Enoxaparin(*) 80 MG/0.8 ML SYR SUBCUT SCH ×2 (03:38→15:16)
[2018-10-02] MEDS: LORazepam TAB(*) 0.5 MG PO PRN (04:18)
[2018-10-02] MEDS: Levothyroxine TAB* 50 MCG TAB PO SCH (04:39)
[2018-10-02] MEDS: Metoprolol Succinate XL TAB* 50 MG PO SCH (08:44)
[2018-10-02] MEDS: Lisinopril TAB* 5 MG PO SCH ×2 (08:44→21:14)
[2018-10-02] MEDS: Liothyronine TAB* 5 MCG PO SCH ×2 (08:45→12:20)
[2018-10-02] MEDS: amLODIPine TAB* 5 MG PO SCH (08:45)
[2018-10-02] MEDS: Pantoprazole IV* 40 MG IV SCH (08:47)
[2018-10-02 10:38] LABS: Albumin 3.4 g/dL (3.2-5.2); Albumin/Globulin Ratio 1.1 (1-3); BUN/Creatinine Ratio 43.1 (8-20); Calcium 8.6 mg/dL (8.6-10.3); EGFR African American 121.3 (>60); EGFR Non-African American 100.3 (>60); Globulin 3.1 g/dL (2-4); Magnesium 2.2 mg/dL (1.9-2.7); Phosphorus 4.4 mg/dL (2.5-5.0); Potassium 4.5 mmol/L (3.5-5.0); Total Bilirubin 0.4 mg/dL (0.2-1.0); Total Protein 6.5 g/dL (6.4-8.9)
--- NOTE | 2018-10-02 11:13 | PN ---
Progress Note - Progress Note Date of Service: 10/02/18 SOAP: Subjective: []Follow up, last seen in our office prior to surgery. Events: - Whipple surgery at [facility] [place] on 09/10/18 - pathology with 2.5 cm, G3 tumor, negative margins, 0/17 LN positive pT2, pN0 - MSI absent for MLH 1 PSM2 - Discharged [facility] [place] 09/17/18 - Admission [facility] [place] 09/18/18 with abd pain and nausea. - CT c/w gastric outlet obstruction at anastomosis - EGD w/ delayed emptying, gastritis, anastomotic ulcer and edema - NGT/PPI/Carafate/TPN with slow improvement - Starting to eat - Thrombus at PICC that is non occlusive and superficial thrombus RUE Objective: [] Assessment: [] Plan: []
--- NOTE | 2018-10-02 15:51 | PN ---
Progress Note - Progress Note Date of Service: 10/02/18 SOAP: Subjective: []Events: - Whipple surgery 09/10/18, no immediate complications - Pathology with G3 IB disease, T2, N0 with 0/17 LN positive. - [place]17[place] [facility] [place] Ad[place] 09/18/18 [facility] [place] with N/V - Evaluation c/w anastomotic ulcer, edema and gastric outlet obstruction. - Managed: IV PPI/NGT/TPN with gradual improvement, done in conjunction with [facility] [place]. - c/b DVT RUE at PICC and on Lovenox. Reports starting to feel better. NGT is out, tolerating some liquids and trying some soft food. Pain is controlled today. Doing some walking around. Has been having some diarrhea, incontinent of urine. No fever or chills. Acetaminophen (Tylenol Tab*) 650 mg PO Q6H PRN PRN Reason: FEVER/PAIN Amlodipine Besylate (Norvasc Tab*) 2.5 mg PO DAILY YOLANDA Last Admin: 10/02/18 08:45 Dose: 2.5 mg Dextrose (D50w Syringe 50 Ml*) 12.5 gm IV PUSH .FOR FS < 60 - SS PRN PRN Reason: FS < 60 Enoxaparin Sodium (Lovenox(*)) 70 mg SUBCUT Q12H YOLANDA Last Admin: 10/02/18 15:16 Dose: 70 mg Heparin Sodium (Porcine) (Heparin Flush Picc/Ml/Cvc(*)) 0 ml FLUSH 0600,1800 YOLANDA; Protocol Last Admin: 10/02/18 08:55 Dose: 1 ml Dextrose 500 ml/ Amino Acids 850 ml/ Sterile Water 150 ml/Fat Emulsion Intravenous 250 ml/ Sodium Chloride 150 meq/Potassium Chloride 50 meq/Potassium Phosphate 20 mmole/Calcium Gluconate 10 meq/Magnesium Sulfate 20 meq/ Multivitamins 10 ml/ Trace Metals 1 ml/ Nutrition ( Parenteral) 1,856.5978 mls @ 77.358 mls/hr CENTR 1700 YOLANDA; Protocol Last Admin: 10/01/18 17:45 Dose: 77.358 mls/hr Insulin Human Lispro (Humalog*) 0 - 5 units SUBCUT Q6HR YOLANDA; Protocol Last Admin: 10/02/18 11:41 Dose: Not Given Levothyroxine Sodium (Synthroid Tab*) 50 mcg PO 0600 YOLANDA Last Admin: 10/02/18 04:39 Dose: 50 mcg Liothyronine Sodium (Cytomel Tab*) 5 mcg PO 0900,1200 [facility] Last Admin: 10/02/18 12:20 Dose: 5 mcg Lisinopril (Prinivil Tab*) 15 mg PO 0900 [facility] Last Admin: 10/02/18 08:44 Dose: 15 mg Lisinopril (Prinivil Tab*) 15 mg PO 2100 [facility] [place] Lorazepam (Ativan Tab(*)) 0.5 mg PO Q6H PRN PRN Reason: ANXIETY Last Admin: 10/02/18 04:18 Dose: 0.5 mg Lorazepam (Ativan Inj*) 0.5 mg IV PUSH Q4H PRN PRN Reason: ANXIETY Last Admin: 10/01/18 02:20 Dose: 0.5 mg Metoprolol Succinate (Toprol Xl Tab*) 75 mg PO BID [facility] [place] Miscellaneous (Ativan Pyxis Dobbins) 1 ea N/A .ATIVAN IV DOBBINS PRN PRN Reason: PYXIS DOBBINS Ondansetron HCl (Zofran Inj*) 4 mg IV Q4H PRN PRN Reason: NAUSEA Last Admin: 09/23/18 09:19 Dose: 4 mg Pantoprazole Sodium (Protonix Iv*) 40 mg IV DAILY [facility] [place] Last Admin: 10/02/18 08:47 Dose: 40 mg Prochlorperazine Edisylate (Compazine Inj*) 10 mg IV Q6H PRN PRN Reason: NAUSEA/VOMITING Last Admin: 09/23/18 00:22 Dose: 10 mg Objective: [] Vital Signs Temp Pulse Resp BP Pulse Ox 97.7 F 73 15 123/74 99 10/02/18 15:27 10/02/18 15:27 10/02/18 15:27 10/02/18 15:27 10/02/18 15:27 HEENT: OM moist, no thrush no LAD and no JVD CTA AOZK2N2 +BS, exam sitting. Non tender and does not feel distended. still healing from surgery. Laboratory Results - last 24 hr 10/01/18 10/01/18 10/01/18 13:30 17:59 23:54 Sodium Potassium Chloride Carbon Dioxide Anion Gap BUN Creatinine Est GFR ( Amer) Est GFR (Non-Af Amer) BUN/Creatinine Ratio Glucose POC Glucose (mg/dL) 130 H 145 H Calcium Phosphorus Magnesium Total Bilirubin AST ALT Alkaline Phosphatase Total Protein Albumin Globulin Albumin/Globulin Ratio Prealbumin Triglycerides Cholesterol Urine Color Yellow Urine Appearance Clear Urine pH 7.0 Ur Specific Totz 1.004 L Urine Protein Negative Urine Ketones Negative Urine Blood 2+ A Urine Nitrate Negative Urine Bilirubin Negative Urine Urobilinogen Negative Ur Leukocyte Esterase 2+ A Urine WBC (Auto) 3+(>20/hpf) A Urine RBC (Auto) 2+(6-10/hpf) A Ur Squamous Epith Cells Present A Urine Bacteria 1+ A Urine Glucose Negative 10/02/18 10/02/18 10/02/18 04:44 10:06 11:38 Sodium 135 Potassium 4.5 Chloride 103 Carbon Dioxide 26 Anion Gap 6 BUN 25 H Creatinine 0.58 Est GFR ( Amer) 121.3 Est GFR (Non-Af Amer) 100.3 BUN/Creatinine Ratio 43.1 H Glucose 119 H POC Glucose (mg/dL) 132 H 134 H Calcium 8.6 Phosphorus 4.4 Magnesium 2.2 Total Bilirubin 0.40 AST 91 H ALT 166 H Alkaline Phosphatase 93 Total Protein 6.5 Albumin 3.4 Globulin 3.1 Albumin/Globulin Ratio 1.1 Prealbumin 23 Triglycerides 145 Cholesterol 130 Urine Color Urine Appearance Urine pH Ur Specific Totz Urine Protein Urine Ketones Urine Blood Urine Nitrate Urine Bilirubin Urine Urobilinogen Ur Leukocyte Esterase Urine WBC (Auto) Urine RBC (Auto) Ur Squamous Epith Cells Urine Bacteria Urine Glucose Hgb 9.9 Assessment: []77 year old stage IB pancreatic caner status post Whipple procedure and post operatives course c/b anastomotic ulcer, edema and gastric outlet obstruction. Conservative management over past two weeks and improving slowly. Discussed several issues today: Plan: []1. Reviewed pathology and she has stage I disease. Surgery went as well as could be expected from an oncology perspective. However, all patients with pancreatic cancer have a high risk of cancer coming back. Three year survival without adjuvant therapy for all patients with IB disease is 35% Adjuvant chemotherapy is an options but would not be considered until feeling better, eating well and back to all normal daily activities. Goal is to start 6 weeks after surgery, can take a little longer. Options include Gemcitabine (10% improvement in 3 yr OS), Gemcitabine and Capcitabine, gemcitabine and Abraxane. No data for adjuvant immunotherpy in pancreatic cancer. 2. DVT. Agree with Lovenox and given complexity consider once daily Lovenox dose on discharge. Anticoagulation for 3 months and at least 6 weeks after PICC pulled. 3. Anemia. Check Iron and B12 4. Appreciate excellent care by Dr. Reed. Will follow with GI for resolution of post operative issues.
[2018-10-02] MEDS: TPN CENTRAL STANDARD BASE A CENTR SCH ×12 (17:27)
[2018-10-02] MEDS: Metoprolol Succinate XL TAB* 25 MG PO SCH (21:14)
[2018-10-03] MEDS: Insulin LISPRO* 1 UNITS UNIT SUBCUT SCH ×4 (00:21→17:33)
[2018-10-03] MEDS: Enoxaparin(*) 80 MG/0.8 ML SYR SUBCUT SCH ×2 (02:53→14:35)
[2018-10-03] MEDS: Levothyroxine TAB* 50 MCG TAB PO SCH (06:17)
[2018-10-03 07:06] LABS: Albumin 3.2 g/dL (3.2-5.2); Albumin/Globulin Ratio 1.1 (1-3); BUN/Creatinine Ratio 52.7 (8-20); Calcium 8.7 mg/dL (8.6-10.3); EGFR Non-African American 106.6 (>60); Globulin 2.8 g/dL (2-4); Magnesium 2.2 mg/dL (1.9-2.7); Phosphorus 5.1 mg/dL (2.5-5.0); Potassium 4.9 mmol/L (3.5-5.0); Total Bilirubin 0.3 mg/dL (0.2-1.0)
[2018-10-03] MEDS: Lisinopril TAB* 5 MG PO SCH ×2 (10:39→21:00)
[2018-10-03] MEDS: Metoprolol Succinate XL TAB* 25 MG PO SCH ×2 (10:39→21:01)
[2018-10-03] MEDS: Pantoprazole IV* 40 MG IV SCH (10:40)
[2018-10-03] MEDS: Liothyronine TAB* 5 MCG PO SCH ×2 (10:40→12:00)
[2018-10-03] MEDS: amLODIPine TAB* 5 MG PO SCH (10:40)
[2018-10-03] MEDS: Nitrofurantoin Macrocrystals* 100 MG CAP PO SCH ×2 (10:54→21:01)
[2018-10-03] MEDS: LORazepam INJ* 2 MG/ML 1 ML VIAL IV PUSH PRN (15:26)
[2018-10-03] MEDS ORDERED: Al Hydrox/Mg Hydrox/Simet LIQ* 30 ML UDC PO PRN (15:56)
[2018-10-03] MEDS: TPN* 24 HR with Dextrose 50% Water* 500 ML, Amino Acid Infusion 10%* 850 ML, Sterile Wa... CENTR SCH ×12 (17:09)
[2018-10-04] MEDS: Insulin LISPRO* 1 UNITS UNIT SUBCUT SCH ×5 (00:22→23:47)
[2018-10-04] MEDS: Enoxaparin(*) 80 MG/0.8 ML SYR SUBCUT SCH ×2 (01:58→15:45)
[2018-10-04] MEDS: Levothyroxine TAB* 50 MCG TAB PO SCH (06:03)
[2018-10-04 06:45] LABS: Albumin 3.2 g/dL (3.2-5.2); Albumin/Globulin Ratio 1.2 (1-3); BUN/Creatinine Ratio 52.7 (8-20); Calcium 8.6 mg/dL (8.6-10.3); EGFR Non-African American 106.6 (>60); Globulin 2.7 g/dL (2-4); Magnesium 2.2 mg/dL (1.9-2.7); Potassium 4.9 mmol/L (3.5-5.0); Total Bilirubin 0.4 mg/dL (0.2-1.0); Total Protein 5.9 g/dL (6.4-8.9)
[2018-10-04] MEDS: Pantoprazole IV* 40 MG IV SCH (09:24)
[2018-10-04] MEDS: Liothyronine TAB* 5 MCG PO SCH ×2 (09:30→12:44)
[2018-10-04] MEDS: Nitrofurantoin Macrocrystals* 100 MG CAP PO SCH ×2 (09:30→21:28)
[2018-10-04] MEDS: Metoprolol Succinate XL TAB* 25 MG PO SCH ×2 (09:31→21:29)
[2018-10-04] MEDS: Lisinopril TAB* 5 MG PO SCH ×2 (09:31→21:29)
[2018-10-04] MEDS: amLODIPine TAB* 5 MG PO SCH (09:31)
[2018-10-04] MEDS: TPN* 24 HR with Dextrose 50% Water* 500 ML, Amino Acid Infusion 10%* 850 ML, Sterile Wa... CENTR SCH ×12 (18:00)
[2018-10-05] MEDS: Enoxaparin(*) 80 MG/0.8 ML SYR SUBCUT SCH ×2 (04:44→17:09)
[2018-10-05] MEDS: Levothyroxine TAB* 50 MCG TAB PO SCH (04:47)
[2018-10-05 05:31] LABS: Albumin 3.3 g/dL (3.2-5.2); Calcium 8.5 mg/dL (8.6-10.3); Magnesium 2.1 mg/dL (1.9-2.7); Total Bilirubin 0.4 mg/dL (0.2-1.0)
[2018-10-05 05:37] LABS: Albumin/Globulin Ratio 1.4 (1-3); BUN/Creatinine Ratio 50.9 (8-20); EGFR Non-African American 106.6 (>60); Globulin 2.3 g/dL (2-4); Phosphorus 3.6 mg/dL (2.5-5.0); Total Protein 5.6 g/dL (6.4-8.9)
[2018-10-05 05:38] LABS: Potassium 5.1 mmol/L (3.5-5.0)
[2018-10-05] MEDS: LORazepam INJ* 2 MG/ML 1 ML VIAL IV PUSH PRN (05:47)
[2018-10-05] MEDS: Insulin LISPRO* 1 UNITS UNIT SUBCUT SCH ×4 (06:58→23:27)
[2018-10-05] MEDS: Metoprolol Succinate XL TAB* 25 MG PO SCH ×2 (09:43→20:36)
[2018-10-05] MEDS: Liothyronine TAB* 5 MCG PO SCH ×2 (09:44→13:01)
[2018-10-05] MEDS: Lisinopril TAB* 5 MG PO SCH ×2 (09:44→20:38)
[2018-10-05] MEDS: Nitrofurantoin Macrocrystals* 100 MG CAP PO SCH ×2 (09:44→20:35)
[2018-10-05] MEDS: amLODIPine TAB* 5 MG PO SCH (09:45)
[2018-10-05] MEDS: Pantoprazole TAB * 40 MG TAB PO SCH (10:12)
--- NOTE | 2018-10-05 11:48 | PN ---
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 - [place] 09/17/18 [place] [facility] [place] Admission 09/18/18 [facility] [place] with N/V - Evaluation c/w anastomotic ulcer, edema and gastric outlet obstruction. - Managed: IV PPI/NGT/TPN with gradual improvement, done in conjunction with [facility] [place]. - c/b DVT RUE at PICC and on Lovenox. Has done well over last several days. Eating soft foods. Tolerating what she is eating, no nausea and no abdominal pain. She is not eating much, not hungry and concerned about recurrent symptoms. Acetaminophen (Tylenol Tab*) 650 mg PO Q6H PRN PRN Reason: FEVER/PAIN Al Hydrox/Mg Hydrox/Simethicone (Maalox Plus*) 30 ml PO Q4H PRN PRN Reason: INDIGESTION Last Admin: 10/03/18 16:37 Dose: 30 ml Amlodipine Besylate (Norvasc Tab*) 2.5 mg PO DAILY YOLANDA Last Admin: 10/05/18 09:45 Dose: 2.5 mg Dextrose (D50w Syringe 50 Ml*) 12.5 gm IV PUSH .FOR FS < 60 - SS PRN PRN Reason: FS < 60 Enoxaparin Sodium (Lovenox(*)) 70 mg SUBCUT Q12H YOLANDA Last Admin: 10/05/18 04:44 Dose: 70 mg Heparin Sodium (Porcine) (Heparin Flush Picc/Ml/Cvc(*)) 0 ml FLUSH 0600,1800 YOLANDA; Protocol Last Admin: 10/05/18 04:46 Dose: 1 ml Dextrose 500 ml/ Amino Acids 850 ml/ Sterile Water 150 ml/Fat Emulsion Intravenous 250 ml/ Sodium Chloride 150 meq/Potassium Phosphate 15 mmole/ Calcium Gluconate 10 meq/Magnesium Sulfate 20 meq/Multivitamins 10 ml/ Trace Metals 1 ml/ Nutrition ( Parenteral) 1,[phone] mls @ 76.247 mls/hr CENTR 1700 YOLANDA; Protocol Insulin Human Lispro (Humalog*) 0 - 5 units SUBCUT Q6HR YOLANDA; Protocol Last Admin: 10/05/18 06:58 Dose: Not Given Levothyroxine Sodium (Synthroid Tab*) 50 mcg PO 0600 [facility] Last Admin: 10/05/18 04:47 Dose: 50 mcg Liothyronine Sodium (Cytomel Tab*) 5 mcg PO 0900,1200 [facility] Last Admin: 10/05/18 09:44 Dose: 5 mcg Lisinopril (Prinivil Tab*) 15 mg PO 0900 [facility] Last Admin: 10/05/18 09:44 Dose: 15 mg Lisinopril (Prinivil Tab*) 15 mg PO 2100 [facility] Last Admin: 10/04/18 21:29 Dose: 15 mg Lorazepam (Ativan Tab(*)) 0.5 mg PO Q6H PRN PRN Reason: ANXIETY Last Admin: 10/02/18 04:18 Dose: 0.5 mg Lorazepam (Ativan Inj*) 0.5 mg IV PUSH Q4H PRN PRN Reason: ANXIETY Last Admin: 10/05/18 05:47 Dose: 0.5 mg Metoprolol Succinate (Toprol Xl Tab*) 75 mg PO BID [facility] Last Admin: 10/05/18 09:43 Dose: 75 mg Miscellaneous (Ativan Pyxis Dobbins) 1 ea N/A .ATIVAN IV DOBBINS PRN PRN Reason: PYXIS DOBBINS Nitrofurantoin Macrocrystals (Macrodantin*) 100 mg PO BID [facility] Last Admin: 10/05/18 09:44 Dose: 100 mg Ondansetron HCl (Zofran Inj*) 4 mg IV Q4H PRN PRN Reason: NAUSEA Last Admin: 09/23/18 09:19 Dose: 4 mg Pantoprazole Sodium (Protonix Tab*) 40 mg PO DAILY [facility] Last Admin: 10/05/18 10:12 Dose: Not Given Prochlorperazine Edisylate (Compazine Inj*) 10 mg IV Q6H PRN PRN Reason: NAUSEA/VOMITING Last Admin: 09/23/18 00:22 Dose: 10 mg Objective: [] Vital Signs Temp Pulse Resp BP Pulse Ox 97.5 F 66 18 139/60 98 10/05/18 07:14 10/05/18 07:14 10/05/18 08:00 10/05/18 07:14 10/05/18 07:14 HEENT: OM moist, no thrush no LAD and no JVD CTA [id number] +BS, exam sitting. Non tender and does not feel distended. mostly healed from surgery. Assessment: []77 year old stage IB pancreatic caner status post Whipple procedure and post operatives course c/b anastomotic ulcer, edema and gastric outlet obstruction. Conservative management over past two weeks and improving slowly. Plan: []1. Discussed eating more, trying Ensure 2. Consider trial off TPN 3. Once eating well and go to [facility] for DVT 4. Anemia a little better but will send Iron and B12 5. Will need to discuss adjuvant therapy for her pancreatic cancer once acute issues resolved.
[2018-10-05 15:15] LABS: % Iron Saturation 16 % (15-55); Iron 63 ug/dL (50-212); Total Iron Binding Capacity 388 mcg/dL (250-450); Transferrin 277 mg/dL (203-362)
[2018-10-05 15:34] LABS: Ferritin 201.5 ng/mL (11-307)
[2018-10-05] MEDS: TPN* 24 HR with Dextrose 50% Water* 500 ML, Amino Acid Infusion 10%* 850 ML, Sterile Wa... CENTR SCH ×11 (17:09)
[2018-10-05] MEDS: Pantoprazole IV* 40 MG IV SCH (19:19)
[2018-10-06] MEDS: Enoxaparin(*) 80 MG/0.8 ML SYR SUBCUT SCH ×2 (04:58→16:41)
[2018-10-06] MEDS: Levothyroxine TAB* 50 MCG TAB PO SCH ×2 (04:58→05:41)
[2018-10-06 05:33] LABS: Hematocrit 30 % (35-47); Mean Corpuscular HGB Conc 33 g/dL (31-36); Mean Corpuscular Hemoglobin 31 pg (27-31); Mean Corpuscular Volume 92 fL (80-97); Mean Platelet Volume 8.3 fL (7.4-10.4); Platelet Count 239 10^3/uL (150-450); Red Blood Count 3.29 10^6 /uL (3.70-4.87); Red Cell Distribution Width 15 % (10.5-15); White Blood Count 5.8 10^3/uL (3.5-10.8)
[2018-10-06 05:56] LABS: Albumin 3.3 g/dL (3.2-5.2); Calcium 8.5 mg/dL (8.6-10.3); Magnesium 2.1 mg/dL (1.9-2.7); Potassium 4.7 mmol/L (3.5-5.0); Total Bilirubin 0.4 mg/dL (0.2-1.0)
[2018-10-06 05:59] LABS: ABS Eosinophils 0.3 10^3/ul (0-0.6); ABS Lymphocytes 1.3 10^3/ul (1.0-4.8); ABS Monocytes 0.9 10^3/ul (0-0.8); ABS Neutrophils 3.2 10^3/ul (1.5-7.7); Eosinophil % 4.4 %; Lymphocyte % 22.7 %; Nucleated Red Blood Cells % 0.1
[2018-10-06 06:02] LABS: Albumin/Globulin Ratio 1.4 (1-3); BUN/Creatinine Ratio 53.6 (8-20); EGFR African American 126.4 (>60); EGFR Non-African American 104.4 (>60); Globulin 2.3 g/dL (2-4); Phosphorus 3.4 mg/dL (2.5-5.0); Total Protein 5.6 g/dL (6.4-8.9)
[2018-10-06] MEDS: Insulin LISPRO* 1 UNITS UNIT SUBCUT SCH ×3 (06:06→17:01)
[2018-10-06] MEDS: Liothyronine TAB* 5 MCG PO SCH ×2 (09:05→12:27)
[2018-10-06] MEDS: Metoprolol Succinate XL TAB* 25 MG PO SCH ×2 (09:05→21:24)
[2018-10-06] MEDS: Lisinopril TAB* 5 MG PO SCH ×2 (09:06→21:26)
[2018-10-06] MEDS: Nitrofurantoin Macrocrystals* 100 MG CAP PO SCH ×2 (09:07→21:29)
[2018-10-06] MEDS: Pantoprazole TAB * 40 MG TAB PO SCH (09:07)
[2018-10-06] MEDS: amLODIPine TAB* 5 MG PO SCH (09:07)
--- NOTE | 2018-10-06 09:59 | PN ---
Subjective - Subjective Reason for Note: Progress Note History: Apurva Good is comfortable today. She had some pain in her right shoulder overnight and this went away. She has had no further pain in her right knee. Her abdominal is pain free. There isn't any appetite and she continues to receive TPN. She acknowledges she feels apprehensive about increasing her po food. At this point she is not interested in an appetite stimulator. 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 Carcinoma of breast (Chronic) C50.919 Cardiomyopathy (Chronic) I42.9 Cerebrovascular disease (Chronic) I67.9 Essential hypertension (Chronic) I10 Hx of DVT (Chronic) Hx right colectomy for colon cancer (Chronic) Hyperlipidemia (Chronic) E78.5 Hypothyroidism (Chronic) E03.9 Implanted cardiac defibrillator (Chronic) Non-ischemic cardiomyopathy (Chronic) I42.8 Osteoporosis (Chronic) M81.0 Current Medications: Current Medications Acetaminophen (Tylenol Tab*) 650 mg PO Q6H PRN PRN Reason: FEVER/PAIN Al Hydrox/Mg Hydrox/Simethicone (Maalox Plus*) 30 ml PO Q4H PRN PRN Reason: INDIGESTION Last Admin: 10/03/18 16:37 Dose: 30 ml Amlodipine Besylate (Norvasc Tab*) 2.5 mg PO DAILY [facility] Last Admin: 10/06/18 09:07 Dose: 2.5 mg Dextrose (D50w Syringe 50 Ml*) 12.5 gm IV PUSH .FOR FS < 60 - SS PRN PRN Reason: FS < 60 Enoxaparin Sodium (Lovenox(*)) 70 mg SUBCUT Q12H [facility] Last Admin: 10/06/18 04:58 Dose: 70 mg Heparin Sodium (Porcine) (Heparin Flush Picc/Ml/Cvc(*)) 0 ml FLUSH 0600,1800 [facility]; Protocol Last Admin: 10/06/18 04:59 Dose: 1 ml Dextrose 500 ml/ Amino Acids 850 ml/ Sterile Water 150 ml/Fat Emulsion Intravenous 250 ml/ Sodium Chloride 150 meq/Potassium Phosphate 15 mmole/ Calcium Gluconate 10 meq/Magnesium Sulfate 20 meq/Multivitamins 10 ml/ Trace Metals 1 ml/ Nutrition ( Parenteral) 1,829.9311 mls @ 76.247 mls/hr CENTR 1700 [facility]; Protocol Last Admin: 10/05/18 17:09 Dose: 76.247 mls/hr Insulin Human Lispro (Humalog*) 0 - 5 units SUBCUT Q6HR [facility]; Protocol Last Admin: 10/06/18 06:06 Dose: Not Given Levothyroxine Sodium (Synthroid Tab*) 50 mcg PO 0600 [facility] Last Admin: 10/06/18 05:41 Dose: Not Given Liothyronine Sodium (Cytomel Tab*) 5 mcg PO 0900,1200 [facility] Last Admin: 10/06/18 09:05 Dose: 5 mcg Lisinopril (Prinivil Tab*) 15 mg PO 0900 [facility] Last Admin: 10/06/18 09:06 Dose: 15 mg Lisinopril (Prinivil Tab*) 15 mg PO 2100 [facility] Last Admin: 10/05/18 20:38 Dose: 15 mg Lorazepam (Ativan Tab(*)) 0.5 mg PO Q6H PRN PRN Reason: ANXIETY Last Admin: 10/02/18 04:18 Dose: 0.5 mg Lorazepam (Ativan Inj*) 0.5 mg IV PUSH Q4H PRN PRN Reason: ANXIETY Last Admin: 10/05/18 05:47 Dose: 0.5 mg Metoprolol Succinate (Toprol Xl Tab*) 75 mg PO BID [facility] Last Admin: 10/06/18 09:05 Dose: 75 mg Miscellaneous (Ativan Pyxis Morales) 1 ea N/A .ATIVAN IV MORALES PRN PRN Reason: PYXIS MORALES Nitrofurantoin Macrocrystals (Macrodantin*) 100 mg PO BID [facility] Last Admin: 10/06/18 09:07 Dose: 100 mg Ondansetron HCl (Zofran Inj*) 4 mg IV Q4H PRN PRN Reason: NAUSEA Last Admin: 09/23/18 09:19 Dose: 4 mg Pantoprazole Sodium (Protonix Tab*) 40 mg PO DAILY [facility]DA Last Admin: 10/06/18 09:07 Dose: 40 mg Prochlorperazine Edisylate (Compazine Inj*) 10 mg IV Q6H PRN PRN Reason: NAUSEA/VOMITING Last Admin: 09/23/18 00:22 Dose: 10 mg - Review of Systems Pulmonary: Negative: Sputum, Hemoptysis Cardiology: Negative: Chest Pain, Shortness of Breath, Palpitations, Swelling of Ankles Home Medications: Home Medications Medication Instructions Recorded Confirmed Type Metoprolol Succinate XL TAB* 50 mg PO BID 06/30/12 09/18/18 History [Toprol XL TAB*] Liothyronine TAB* [Cytomel TAB*] 10 mcg PO DAILY 12/27/13 09/18/18 History Levothyroxine TAB* [Synthroid TAB*] 50 mcg PO DAILY 12/08/17 09/18/18 History Lisinopril TAB* [Prinivil TAB 5 5 mg PO QAM 12/08/17 09/18/18 History MG*] Lisinopril TAB* [Prinivil TAB 5 10 mg PO QPM 12/08/17 09/18/18 History MG*] Simvastatin TAB(NF) [Zocor 10 MG 10 mg PO BEDTIME 12/08/17 09/18/18 History (NF)] Acetaminophen [Tylenol] 325 - 650 mg PO Q6HR PRN 09/18/18 09/18/18 History Docusate Sodium [Colace] 100 mg PO SEE INSTRUCTIONS PRN 09/18/18 09/18/18 History Pantoprazole TAB * [Protonix TAB*] 40 mg PO DAILY 09/18/18 09/18/18 History Rivaroxaban TAB(*) [Xarelto 10 mg 10 mg PO DAILY 09/18/18 09/18/18 History (*)] oxyCODONE ORAL.SOLN* [Oxycodone 5 mg PO Q4H PRN #120 ml MDD 30 ml 09/18/1809/18 Rx ORAL.SOLN 5 mg/5 ml *] oxyCODONE TAB* [Roxycodone TAB 5 5 mg PO Q6H PRN 09/18/18 09/18/18 History mg*] Allergies: Allergies Allergy/AdvReac Type Severity Reaction Status Date / Time Iodinated Contrast- Oral and Allergy Hives Verified 09/27/18 09:25 IV Dye Penicillins Allergy Rash Verified 09/18/18 14:53 shellfish derived Allergy Hives Verified 09/27/18 09:26 Sulfa (Sulfonamide Allergy Rash Verified 09/18/18 14:53 Antibiotics) Objective - Vital Signs Vital Signs: Vital Signs 10/05/18 10/05/18 10/05/18 11:30 15:15 19:59 Temperature 98.3 F 97.9 F 97.3 F Pulse Rate 66 70 69 Respiratory 16 18 16 Rate Blood Pressure 133/69 120/58 146/63 (mmHg) O2 Sat by Pulse 99 98 100 Oximetry 10/05/18 10/05/18 10/06/18 20:49 23:16 02:55 Temperature 98.2 F 98.1 F Pulse Rate 71 65 Respiratory 16 20 24 Rate Blood Pressure 152/86 127/63 (mmHg) O2 Sat by Pulse 98 98 Oximetry 10/06/18 07:40 Temperature 98.7 F Pulse Rate 78 Respiratory 20 Rate Blood Pressure 144/83 (mmHg) O2 Sat by Pulse 100 Oximetry - Intake and Output Intake and Output: Intake & Output 10/03/18 10/04/18 10/05/18 10/06/18 11:59 11:59 11:59 11:59 Intake Total 2717 2252 2785 2660 Output Total 0 Balance 2717 2252 2785 2660 Weight 146 lb 11.2 oz 145 lb 9.6 oz 140 lb 4.8 oz 147 lb 11.2 oz Intake: IV Fluids 1777 1772 1825 TPN 1777 1772 1825 TPN/PPN 1700 Oral 940 480 960 960 Output: Urine 0 Other: Estimated Void Large Large Large Medium Date of Last Bowel [id number] Movement # Bowel Movements 0 0 0 Estimated Stool Amount Medium # Voids 1 2 3 0 ADLs: Meal Record Start: 09/18/18 21: 01 Freq: DAILY@0900,1400,1800 Status: Active Protocol: Created 09/18/18 21:01 System (Rec: 09/18/18 21:01 System MED-C02) Document 09/19/18 09:00 [id number] (Rec: 09/19/18 10:06 ELU3284 MED-C11) Document 09/19/18 14:00 WYJ7270 (Rec: 09/19/18 18:14 ANP2950 MED-C04) Document 09/19/18 18:00 LZJ2182 (Rec: 09/19/18 18:32 BJL5951 MED-C14) Document 09/20/18 09:00 CFO1974 (Rec: 09/20/18 10:30 SCP3362 MED-C09) Document 09/20/18 14:00 QIS2085 (Rec: 09/20/18 14:52 BJZ2833 MED-C11) Document 09/20/18 17:30 KAP5073 (Rec: 09/20/18 17:30 ABB5187 MED-C11) Document 09/21/18 09:00 OHE6827 (Rec: 09/21/18 13:35 BVW9440 MED-C09) Document 09/21/18 14:00 VWT8637 (Rec: 09/21/18 17:24 QEI0678 MED-C11) Document 09/21/18 18:00 XEU0501 (Rec: 09/21/18 20:01 JYI7665 MED-C09) Document 09/22/18 09:00 BQY4555 (Rec: 09/22/18 11:32 PFC8608 MED-C11) Document 09/22/18 14:00 LIV2240 (Rec: 09/22/18 17:17 FME0462 MED-C16) Document 09/22/18 18:00 GFA3334 (Rec: 09/22/18 18:18 MSW6602 MED-C16) Document 09/23/18 09:00 ALF9558 (Rec: 09/23/18 15:44 VZW9925 MED-M03) Document 09/23/18 18:00 TZS9305 (Rec: 09/23/18 19:25 GFX4696 MED-C11) Document 09/24/18 09:00 RWS1282 (Rec: 09/24/18 10:02 FLS9707 MED-C09) Document 09/24/18 14:00 BQZ9959 (Rec: 09/24/18 14:22 QNO2747 MED-C09) Document 09/24/18 18:00 WIB9325 (Rec: 09/24/18 22:16 AQL4362 MED-C04) Document 09/25/18 09:00 UDY1587 (Rec: 09/25/18 13:02 NBS2539 MED-C11) Document 09/25/18 14:00 GTP4355 (Rec: 09/25/18 16:40 OEP0490 MED-C14) Document 09/25/18 14:00 UFI1261 (Rec: 09/25/18 16:40 VOQ2010 MED-C11) Document 09/25/18 18:00 FHG5411 (Rec: 09/25/18 18:27 XRT1918 MED-C11) Document 09/26/18 09:00 XCA0458 (Rec: 09/26/18 11:57 FME3128 MED-C11) Document 09/26/18 14:00 WLX1952 (Rec: 09/26/18 14:18 EJW2245 MED-C09) Document 09/27/18 09:00 NIE7295 (Rec: 09/27/18 10:41 ZRS1783 MED-C05) Document 09/27/18 14:00 UOU2781 (Rec: 09/27/18 14:09 VGS3628 MED-C05) Document 09/27/18 18:00 AMC5138 (Rec: 09/27/18 18:21 UKR4457 MED-C05) Document 09/28/18 09:00 QCP3236 (Rec: 09/28/18 09:16 RLU6312 MED-C05) Document 09/28/18 13:49 KVP1920 (Rec: 09/28/18 13:50 PFZ4364 MED-C05) Document 09/28/18 18:00 OFK2938 (Rec: 09/28/18 22:26 TYH5490 MED-C05) Document 09/29/18 09:00 ARQ5454 (Rec: 09/29/18 13:53 UMD8953 MED-C11) Document 09/29/18 14:00 XTF4185 (Rec: 09/29/18 14:16 SLS9648 MED-C11) Document 09/29/18 18:00 UHE1081 (Rec: 09/29/18 18:17 TXI0268 MED-C11) Document 09/30/18 09:00 IVQ5350 (Rec: 09/30/18 09:46 DAB1471 MED-C25) Document 09/30/18 14:00 VCS5375 (Rec: 09/30/18 15:41 PML2527 MED-C25) Document 09/30/18 18:00 NUW4862 (Rec: 09/30/18 18:34 IZY5271 MED-C09) Document 10/01/18 09:00 LFK0973 (Rec: 10/01/18 13:55 XYE2546 MED-C09) Document 10/01/18 14:00 HXE3402 (Rec: 10/01/18 16:07 WXH6670 MED-C11) Document 10/01/18 18:00 QYD6281 (Rec: 10/01/18 18:16 RIL7806 MED-C11) Document 10/02/18 09:00 STW6874 (Rec: 10/02/18 09:09 VBQ2183 MED-C11) Document 10/02/18 14:00 NFM3895 (Rec: 10/02/18 14:04 BOM5467 MED-C09) Document 10/02/18 18:00 WQU1684 (Rec: 10/02/18 18:06 PJO4741 MED-C11) Document 10/03/18 09:00 ZRJ4499 (Rec: 10/03/18 09:37 VER6967 MED-C09) Document 10/03/18 13:04 BNB8558 (Rec: 10/03/18 13:04 AOO2807 MED-C11) Document 10/03/18 18:00 EOR0664 (Rec: 10/03/18 18:16 KNJ5767 MED-C11) Document 10/04/18 09:49 ZJZ9022 (Rec: 10/04/18 09:49 OMJ4519 MED-C02) Document 10/04/18 13:35 OZQ6524 (Rec: 10/04/18 13:37 AXB2633 MED-C09) Document 10/04/18 18:00 ICE8152 (Rec: 10/04/18 19:11 RBF7198 MED-C09) Document 10/05/18 09:00 AOA7705 (Rec: 10/05/18 16:32 XUQ3781 MED-C05) Document 10/05/18 14:00 BXC1838 (Rec: 10/05/18 16:38 VDT4394 MED-C05) Document 10/05/18 18:00 BIA5909 (Rec: 10/05/18 19:09 EKP5626 MED-C09) Document 10/06/18 09:00 ORY1041 (Rec: 10/06/18 09:41 ZSZ2322 MED-C07) Intake and Output Start: 09/18/18 14: 53 Freq: Status: Complete Protocol: Created 09/18/18 14:53 System (Rec: 09/18/18 14:53 System ED-C24) Document 09/23/18 23:10 YWU9034 (Rec: 09/24/18 02:46 FOQ8904 MED-C12) Intake and Output Start: 09/18/18 21: 01 Freq: DAILY@0600,1400,2200 Status: Active Protocol: Created 09/18/18 21:01 System (Rec: 09/18/18 21:01 System MED-C02) Document 09/18/18 22:00 HZV2428 (Rec: 09/18/18 22:38 UYP2090 MED-C14) Document 09/19/18 03:22 OPN9445 (Rec: 09/19/18 03:22 PJT8330 MED-M19) Document 09/19/18 04:47 VHS1180 (Rec: 09/19/18 04:48 HCI8761 MED-C11) Document 09/19/18 14:00 YEY8999 (Rec: 09/19/18 14:24 ZJG0152 MED-C11) Document 09/19/18 21:46 KJJ6893 (Rec: 09/19/18 21:48 RTM5980 MED-C14) Document 09/20/18 03:53 NLT5490 (Rec: 09/20/18 03:54 HTW5231 MED-M11) Document 09/20/18 05:16 NRM2712 (Rec: 09/20/18 05:16 XNG3875 MED-C07) Document 09/20/18 14:00 YCJ0782 (Rec: 09/20/18 15:21 KOM5094 MED-C11) Document 09/20/18 16:30 CYJ8484 (Rec: 09/20/18 16:30 LNA7292 MED-M02) Document 09/21/18 05:14 RFA5147 (Rec: 09/21/18 05:15 OCX6408 MED-C12) Document 09/21/18 14:00 VZQ3083 (Rec: 09/21/18 17:24 SHA8263 MED-C11) Document 09/21/18 21:31 GFA7225 (Rec: 09/21/18 21:37 CIJ6406 MED-C09) Document 09/22/18 05:38 LAA8049 (Rec: 09/22/18 05:40 YJG6111 MED-C11) Document 09/22/18 14:00 DVR9767 (Rec: 09/22/18 17:17 MPP0361 MED-C16) Document 09/22/18 22:00 XGX0835 (Rec: 09/22/18 22:23 NLY6635 MED-C11) Document 09/23/18 06:00 JHW6186 (Rec: 09/23/18 06:04 HKF9794 MED-C11) Document 09/23/18 14:00 HAY9151 (Rec: 09/23/18 15:43 PZD5830 MED-M03) Document 09/24/18 06:00 YVB9188 (Rec: 09/24/18 06:45 RDX0263 MED-C11) Document 09/24/18 10:25 JLL3021 (Rec: 09/24/18 10:25 LGU2917 MED-C07) Document 09/24/18 14:00 QDY1375 (Rec: 09/24/18 14:02 YBC5184 MED-C09) Document 09/24/18 16:18 OPQ3722 (Rec: 09/24/18 16:18 EPM0568 MED-C07) Document 09/24/18 22:00 AYO8982 (Rec: 09/24/18 23:15 APG7309 MED-C11) Document 09/25/18 04:20 LQC4210 (Rec: 09/25/18 04:21 MVB4407 MED-M18) Document 09/25/18 05:21 NDD7893 (Rec: 09/25/18 05:22 BBC3136 MED-C09) Document 09/25/18 14:00 VQA5740 (Rec: 09/25/18 14:08 DMI2007 MED-C09) Document 09/25/18 22:00 YJN7207 (Rec: 09/25/18 22:03 ZGW3341 MED-C15) Document 09/26/18 05:11 YTQ8720 (Rec: 09/26/18 05:12 AUK4073 MED-C11) Document 09/26/18 14:00 UDW8596 (Rec: 09/26/18 15:38 XEA8022 MED-C09) Document 09/26/18 21:51 SNR8335 (Rec: 09/26/18 22:11 PEV3117 MED-C07) Document 09/27/18 05:38 UUO0656 (Rec: 09/27/18 05:39 GDI2594 MED-C07) Document 09/27/18 14:00 CGQ3781 (Rec: 09/27/18 14:11 DBC7045 MED-C05) Document 09/27/18 21:47 UJA5480 (Rec: 09/27/18 21:48 XUZ2854 MED-C13) Document 09/28/18 05:14 VCN2605 (Rec: 09/28/18 05:15 MTJ0449 MED-C13) Document 09/28/18 13:49 YDC6827 (Rec: 09/28/18 13:50 XJP3173 MED-C05) Document 09/28/18 22:00 SUG8136 (Rec: 09/28/18 22:31 HIF9028 MED-C05) Document 09/29/18 06:00 FZD8658 (Rec: 09/29/18 06:03 BFI3022 MED-C02) Document 09/29/18 13:53 LMY9447 (Rec: 09/29/18 13:54 BEC2481 MED-C11) Document 09/29/18 21:22 ABC1535 (Rec: 09/29/18 21:22 RWL5452 MED-C11) Document 09/30/18 05:52 RDA9535 (Rec: 09/30/18 05:53 SKH5242 MED-C11) Document 09/30/18 13:36 ZXB7829 (Rec: 09/30/18 13:37 ECC7730 MED-C25) Document 09/30/18 20:41 OHN3219 (Rec: 09/30/18 20:47 IBS5981 MED-C09) Document 10/01/18 05:57 DFD2416 (Rec: 10/01/18 05:58 ZOQ0877 MED-C26) Document 10/01/18 14:00 VMX9590 (Rec: 10/01/18 14:06 DEA1137 MED-C09) Document 10/01/18 21:47 PTW3935 (Rec: 10/01/18 21:47 XOH6685 MED-C11) Document 10/02/18 06:00 XIZ7766 (Rec: 10/02/18 06:21 GLS0622 MED-C11) Document 10/02/18 14:00 OAB0418 (Rec: 10/02/18 14:04 ASI4921 MED-C09) Document 10/02/18 21:44 VZM3972 (Rec: 10/02/18 21:45 WVE9408 MED-C09) Document 10/03/18 04:41 TRF0977 (Rec: 10/03/18 04:42 IFG4320 MED-C16) Document 10/03/18 14:00 SBL7569 (Rec: 10/03/18 14:08 AIS4820 MED-C11) Document 10/03/18 21:14 NCS5040 (Rec: 10/03/18 21:15 WSU7092 MED-C11) Document 10/04/18 05:35 KKO2986 (Rec: 10/04/18 05:36 ACT4711 MED-C09) Document 10/04/18 13:35 YJI8552 (Rec: 10/04/18 13:37 VLF5411 MED-C09) Document 10/04/18 22:00 WOT0294 (Rec: 10/04/18 22:36 DHX3294 MED-C13) Document 10/05/18 05:52 RDZ1028 (Rec: 10/05/18 05:53 BPL2879 MED-C13) Document 10/05/18 14:00 KOD6370 (Rec: 10/05/18 16:38 OMA9567 MED-C05) Document 10/05/18 22:00 DSC8363 (Rec: 10/05/18 22:03 WMP8901 MED-C09) Document 10/06/18 04:49 VFS1862 (Rec: 10/06/18 04:50 GAY1340 MED-C09) - Physical Exam General Physical Exam Comment: Sitting in a chair. Looking healthier than 1 week ago. General: No Cyanosis, No Anemia, No Jaundice, No Clubbing Lungs and Chest: Yes: Chest Expansion Full, Chest Expansion Symetrica, Percussion Note Resonant, Vessicular Breath Sounds. No: Crackles, Wheezes Heart Rate and Rhythm: Regular JVP: Not Elevated Additional Cardiovascular: Yes: Normal Heart Sounds. No: Heart Murmur, Pedal Edema Abdominal Exam: Yes: Soft. No: Distention, Abdominal Tenderness Results - Results Lab Results: Laboratory Results - last 24 hr 10/05/18 10/05/18 10/05/18 12:10 14:30 17:03 WBC RBC Hgb Hct MCV MCH MCHC RDW Plt Count MPV Neut % (Auto) Lymph % (Auto) Bailey % (Auto) Eos % (Auto) Baso % (Auto) Absolute Neuts (auto) Absolute Lymphs (auto) Absolute Monos (auto) Absolute Eos (auto) Absolute Basos (auto) Absolute Nucleated RBC Nucleated RBC % Sodium Potassium Chloride Carbon Dioxide Anion Gap BUN Creatinine Est GFR ( Amer) Est GFR (Non-Af Amer) BUN/Creatinine Ratio Glucose POC Glucose (mg/dL) 133 H 131 H Calcium Phosphorus Magnesium Iron 63 TIBC 388 % Saturation 16 Unsat Iron Binding < 373 Transferrin 277 Ferritin 201.5 Total Bilirubin AST ALT Alkaline Phosphatase Total Protein Albumin Globulin Albumin/Globulin Ratio Prealbumin Triglycerides Cholesterol Vitamin B12 405 10/05/18 10/06/18 10/06/18 23:25 05:10 05:10 WBC 5.8 RBC 3.29 L Hgb 10.0 L Hct 30 L MCV 92 MCH 31 MCHC 33 RDW 15 Plt Count 239 MPV 8.3 Neut % (Auto) 55.8 Lymph % (Auto) 22.7 Bailey % (Auto) 16.4 Eos % (Auto) 4.4 Baso % (Auto) 0.7 Absolute Neuts (auto) 3.2 Absolute Lymphs (auto) 1.3 Absolute Monos (auto) 0.9 H Absolute Eos (auto) 0.3 Absolute Basos (auto) 0.0 Absolute Nucleated RBC 0.0 Nucleated RBC % 0.1 Sodium 135 Potassium 4.7 Chloride 107 Carbon Dioxide 21 L Anion Gap 7 BUN 30 H Creatinine 0.56 Est GFR ( Amer) 126.4 Est GFR (Non-Af Amer) 104.4 BUN/Creatinine Ratio 53.6 H Glucose 105 H POC Glucose (mg/dL) 139 H Calcium 8.5 L Phosphorus 3.4 Magnesium 2.1 Iron TIBC % Saturation Unsat Iron Binding Transferrin Ferritin Total Bilirubin 0.40 AST 25 ALT 64 H Alkaline Phosphatase 85 Total Protein 5.6 L Albumin 3.3 Globulin 2.3 Albumin/Globulin Ratio 1.4 Prealbumin 31 Triglycerides 134 Cholesterol 146 Vitamin B12 Assessment - Problem List Assessment: Patient Problems Anastomotic ulcer S/P gastric bypass (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) Malignant neoplasm of pancreas, part unspecified (Acute) Nutrition deficiency due to insufficient food (Acute) Adrenal nodule (Chronic) Anticoagulation adequate (Chronic) Anxiety (Chronic) Luna aneurysm (Chronic) Carcinoma of breast (Chronic) Cardiomyopathy (Chronic) Cerebrovascular disease (Chronic) Essential hypertension (Chronic) Hx of DVT (Chronic) Hx right colectomy for colon cancer (Chronic) Hyperlipidemia (Chronic) Hypothyroidism (Chronic) Implanted cardiac defibrillator (Chronic) Non-ischemic cardiomyopathy (Chronic) Osteoporosis (Chronic) Plan: Anastomotic ulcer S/P gastric bypass (Acute) History of Dariusz-en-Y gastric bypass (Acute) History of partial pancreatectomy (Acute) Nutrition deficiency due to insufficient food (Acute) She is improving and becoming stronger. She lacks confidence in her anastamosis. However, she has no abdominal pain. I have offered her an appetite stimulator. I suspect that TPN drives down her appetite. I note that her BUN/CR ratio is increased - I have encouraged her to drink more water. She wants another day with the current regimen. Her pre- albumin is normal range. I note that her LFTs are normalizing Secondary diagnoses - nothing acute: Lane syndrome (Acute) Malignant neoplasm of pancreas, part unspecified (Acute) Adrenal nodule (Chronic) Anticoagulation adequate (Chronic) Anxiety (Chronic) Luna aneurysm (Chronic) Carcinoma of breast (Chronic) Cardiomyopathy (Chronic) Cerebrovascular disease (Chronic) Essential hypertension (Chronic) Hx of DVT (Chronic) Hx right colectomy for colon cancer (Chronic) Hyperlipidemia (Chronic) Hypothyroidism (Chronic) Implanted cardiac defibrillator (Chronic) Non-ischemic cardiomyopathy (Chronic) Osteoporosis (Chronic) I discussed the above with the patient and she agreed with this management plan
[2018-10-06] MEDS: TPN* 24 HR with Dextrose 50% Water* 500 ML, Amino Acid Infusion 10%* 850 ML, Sterile Wa... CENTR SCH ×11 (16:41)
[2018-10-06] MEDS: Docusate LIQ* 100 MG/10 ML UDC PO SCH (21:27)
[2018-10-07] MEDS: Insulin LISPRO* 1 UNITS UNIT SUBCUT SCH ×4 (00:51→17:33)
[2018-10-07] MEDS: Levothyroxine TAB* 50 MCG TAB PO SCH (04:53)
[2018-10-07] MEDS: Enoxaparin(*) 80 MG/0.8 ML SYR SUBCUT SCH (04:54)
[2018-10-07 05:49] LABS: Albumin 3.1 g/dL (3.2-5.2); Calcium 8.2 mg/dL (8.6-10.3); Potassium 4.4 mmol/L (3.5-5.0); Total Bilirubin 0.4 mg/dL (0.2-1.0)
[2018-10-07 05:55] LABS: Albumin/Globulin Ratio 1.5 (1-3); BUN/Creatinine Ratio 55.6 (8-20); EGFR African American 131.8 (>60); EGFR Non-African American 108.9 (>60); Globulin 2.1 g/dL (2-4); Phosphorus 3.6 mg/dL (2.5-5.0); Total Protein 5.2 g/dL (6.4-8.9)
[2018-10-07] MEDS: Docusate LIQ* 100 MG/10 ML UDC PO SCH (08:46)
[2018-10-07] MEDS: LORazepam TAB(*) 0.5 MG PO PRN (08:51)
[2018-10-07] MEDS: Liothyronine TAB* 5 MCG PO SCH ×2 (09:31→12:18)
[2018-10-07] MEDS: Metoprolol Succinate XL TAB* 25 MG PO SCH ×2 (09:32→21:25)
[2018-10-07] MEDS: amLODIPine TAB* 5 MG PO SCH (09:32)
[2018-10-07] MEDS: Nitrofurantoin Macrocrystals* 100 MG CAP PO SCH ×2 (09:33→21:24)
[2018-10-07] MEDS: Lisinopril TAB* 5 MG PO SCH ×2 (09:33→21:40)
--- NOTE | 2018-10-07 10:21 | PN ---
Subjective - Subjective Reason for Note: Progress Note History: Apurva Good has had no pain in her abdomen. I prescribed some liquid docusate yesterday for constipation - this caused her nausea overnight. She has been drinking some milk and finds apple sauce aids her swallowing of pills. The last 5 months have been an ordeal and she wonders if she is depressed. Part of this may relate to her prolonged hospitalization - she wants to discuss antidepressant therapy. She continues to receive TPN. Her appetite is low as a result. 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 Carcinoma of breast (Chronic) C50.919 Cardiomyopathy (Chronic) I42.9 Cerebrovascular disease (Chronic) I67.9 Essential hypertension (Chronic) I10 Hx of DVT (Chronic) Hx right colectomy for colon cancer (Chronic) Hyperlipidemia (Chronic) E78.5 Hypothyroidism (Chronic) E03.9 Implanted cardiac defibrillator (Chronic) Non-ischemic cardiomyopathy (Chronic) I42.8 Osteoporosis (Chronic) M81.0 Current Medications: Current Medications Acetaminophen (Tylenol Tab*) 650 mg PO Q6H PRN PRN Reason: FEVER/PAIN Al Hydrox/Mg Hydrox/Simethicone (Maalox Plus*) 30 ml PO Q4H PRN PRN Reason: INDIGESTION Last Admin: 10/03/18 16:37 Dose: 30 ml Amlodipine Besylate (Norvasc Tab*) 2.5 mg PO DAILY YOLANDA Last Admin: 10/07/18 09:32 Dose: 2.5 mg Dextrose (D50w Syringe 50 Ml*) 12.5 gm IV PUSH .FOR FS < 60 - SS PRN PRN Reason: FS < 60 Docusate Sodium (Colace Cap*) 100 mg PO BID YOLANDA Enoxaparin Sodium (Lovenox(*)) 70 mg SUBCUT Q12H [facility] Last Admin: 10/07/18 04:54 Dose: 70 mg Heparin Sodium (Porcine) (Heparin Flush Picc/Ml/Cvc(*)) 0 ml FLUSH 0600,1800 YOLANDA; Protocol Last Admin: 10/07/18 04:53 Dose: 1 ml Dextrose 500 ml/ Amino Acids 850 ml/ Sterile Water 150 ml/Fat Emulsion Intravenous 250 ml/ Sodium Chloride 150 meq/Potassium Phosphate 15 mmole/ Calcium Gluconate 10 meq/Magnesium Sulfate 20 meq/Multivitamins 10 ml/ Trace Metals 1 ml/ Nutrition ( Parenteral) 1,829.9311 mls @ 76.247 mls/hr [facility]EN[facility] 1700 [facility]; Protocol Last Admin: 10/06/18 16:41 Dose: 76.247 mls/hr Insulin Human Lispro (Humalog*) 0 - 5 units SUBCUT Q6HR [facility]; Protocol Last Admin: 10/07/18 05:56 Dose: Not Given Levothyroxine Sodium (Synthroid Tab*) 50 mcg PO 0600 [facility] Last Admin: 10/07/18 04:53 Dose: 50 mcg Liothyronine Sodium (Cytomel Tab*) 5 mcg PO 0900,1200 [facility] Last Admin: 10/07/18 09:31 Dose: 5 mcg Lisinopril (Prinivil Tab*) 15 mg PO 0900 [facility] Last Admin: 10/07/18 09:33 Dose: 15 mg Lisinopril (Prinivil Tab*) 15 mg PO 2100 [facility] Last Admin: 10/06/18 21:26 Dose: 15 mg Lorazepam (Ativan Tab(*)) 0.5 mg PO Q6H PRN PRN Reason: ANXIETY Last Admin: 10/07/18 08:51 Dose: 0.5 mg Metoprolol Succinate (Toprol Xl Tab*) 75 mg PO BID [facility] Last Admin: 10/07/18 09:32 Dose: 75 mg Nitrofurantoin Macrocrystals (Macrodantin*) 100 mg PO BID [facility] Last Admin: 10/07/18 09:33 Dose: 100 mg Ondansetron HCl (Zofran Inj*) 4 mg IV Q4H PRN PRN Reason: NAUSEA Last Admin: 09/23/18 09:19 Dose: 4 mg Pantoprazole Sodium (Protonix Tab*) 40 mg PO DAILY [facility] Last Admin: 10/06/18 09:07 Dose: 40 mg Prochlorperazine Edisylate (Compazine Inj*) 10 mg IV Q6H PRN PRN Reason: NAUSEA/VOMITING Last Admin: 09/23/18 00:22 Dose: 10 mg Home Medications: Home Medications Medication Instructions Recorded Confirmed Type Metoprolol Succinate XL TAB* 50 mg PO BID 06/30/12 09/18/18 History [Toprol XL TAB*] Liothyronine TAB* [Cytomel TAB*] 10 mcg PO DAILY 12/27/13 09/18/18 History Levothyroxine TAB* [Synthroid TAB*] 50 mcg PO DAILY 12/08/17 09/18/18 History Lisinopril TAB* [Prinivil TAB 5 5 mg PO QAM 12/08/17 09/18/18 History MG*] Lisinopril TAB* [Prinivil TAB 5 10 mg PO QPM 12/08/17 09/18/18 History MG*] Simvastatin TAB(NF) [Zocor 10 MG 10 mg PO BEDTIME 12/08/17 09/18/18 History (NF)] Acetaminophen [Tylenol] 325 - 650 mg PO Q6HR PRN 09/18/18 09/18/18 History Docusate Sodium [Colace] 100 mg PO SEE INSTRUCTIONS PRN 09/18/18 09/18/18 History Pantoprazole TAB * [Protonix TAB*] 40 mg PO DAILY 09/18/18 09/18/18 History Rivaroxaban TAB(*) [Xarelto 10 mg 10 mg PO DAILY 09/18/18 09/18/18 History (*)] oxyCODONE ORAL.SOLN* [Oxycodone 5 mg PO Q4H PRN #120 ml MDD 30 ml 09/18/1809/18 Rx ORAL.SOLN 5 mg/5 ml *] oxyCODONE TAB* [Roxycodone TAB 5 5 mg PO Q6H PRN 09/18/18 09/18/18 History mg*] Allergies: Allergies Allergy/AdvReac Type Severity Reaction Status Date / Time Iodinated Contrast- Oral and Allergy Hives Verified 09/27/18 09:25 IV Dye Penicillins Allergy Rash Verified 09/18/18 14:53 shellfish derived Allergy Hives Verified 09/27/18 09:26 Sulfa (Sulfonamide Allergy Rash Verified 09/18/18 14:53 Antibiotics) Objective - Vital Signs Vital Signs: Vital Signs 10/06/18 10/06/18 10/06/18 11:20 15:11 19:21 Temperature 98.1 F 97.8 F 97.7 F Pulse Rate 74 66 63 Respiratory 16 20 16 Rate Blood Pressure 157/62 121/56 133/60 (mmHg) O2 Sat by Pulse 100 98 99 Oximetry 10/06/18 10/06/18 10/06/18 21:49 21:50 22:42 Temperature 97.5 F Pulse Rate 70 Respiratory 16 18 16 Rate Blood Pressure 146/61 (mmHg) O2 Sat by Pulse 99 Oximetry 10/07/18 10/07/18 10/07/18 03:09 07:15 08:00 Temperature 97.5 F 97.9 F Pulse Rate 66 83 Respiratory 24 16 16 Rate Blood Pressure 143/63 149/74 (mmHg) O2 Sat by Pulse 99 97 Oximetry 10/07/18 08:51 Temperature Pulse Rate Respiratory 18 Rate Blood Pressure (mmHg) O2 Sat by Pulse Oximetry - Intake and Output Intake and Output: Intake & Output 10/04/18 10/05/18 10/06/18 10/07/18 11:59 11:59 11:59 11:59 Intake Total 2252 2785 2660 2300 Output Total 0 Balance 2252 2785 2660 2300 Weight 145 lb 9.6 oz 140 lb 4.8 oz 147 lb 11.2 oz 148 lb 6.4 oz Intake: IV Fluids 177 1825 TPN 1772 1825 TPN/PPN 1700 1820 Oral 480 960 960 480 Output: Urine 0 Other: Estimated Void Large Large Medium Date of Last Bowel [id number] Movement # Bowel Movements 0 0 0 # Voids 2 3 0 0 ADLs: Meal Record Start: 09/18/18 21: 01 Freq: DAILY@0900,1400,1800 Status: Inactive Protocol: Created 09/18/18 21:01 System (Rec: 09/18/18 21:01 System MED-C02) Document 09/19/18 09:00 [id number] (Rec: 09/19/18 10:06 [id number] MED-C11) Document 09/19/18 14:00 LDE0489 (Rec: 09/19/18 18:14 PIA0269 MED-C04) Document 09/19/18 18:00 YKO3509 (Rec: 09/19/18 18:32 FXN6490 MED-C14) Document 09/20/18 09:00 SZY6719 (Rec: 09/20/18 10:30 RKP0680 MED-C09) Document 09/20/18 14:00 ACF6391 (Rec: 09/20/18 14:52 ZBV5058 MED-C11) Document 09/20/18 17:30 AOU3329 (Rec: 09/20/18 17:30 DMN5495 MED-C11) Document 09/21/18 09:00 UCQ9064 (Rec: 09/21/18 13:35 CGX0370 MED-C09) Document 09/21/18 14:00 AMU1414 (Rec: 09/21/18 17:24 NFJ4499 MED-C11) Document 09/21/18 18:00 ODO4508 (Rec: 09/21/18 20:01 RKN7690 MED-C09) Document 09/22/18 09:00 SXN1467 (Rec: 09/22/18 11:32 DWY4880 MED-C11) Document 09/22/18 14:00 ZPP5887 (Rec: 09/22/18 17:17 LKF1301 MED-C16) Document 09/22/18 18:00 IBO0423 (Rec: 09/22/18 18:18 JUD6357 MED-C16) Document 09/23/18 09:00 FTK7717 (Rec: 09/23/18 15:44 FBS5309 MED-M03) Document 09/23/18 18:00 CVO8090 (Rec: 09/23/18 19:25 DVY9505 MED-C11) Document 09/24/18 09:00 IJV0826 (Rec: 09/24/18 10:02 WPJ9596 MED-C09) Document 09/24/18 14:00 EFN9815 (Rec: 09/24/18 14:22 XET0921 MED-C09) Document 09/24/18 18:00 XAA7735 (Rec: 09/24/18 22:16 OBX8143 MED-C04) Document 09/25/18 09:00 XIG6179 (Rec: 09/25/18 13:02 ZCT2267 MED-C11) Document 09/25/18 14:00 TWF6670 (Rec: 09/25/18 16:40 QXQ8589 MED-C14) Document 09/25/18 14:00 GGX9471 (Rec: 09/25/18 16:40 FAH7324 MED-C11) Document 09/25/18 18:00 DMY9116 (Rec: 09/25/18 18:27 YEC0070 MED-C11) Document 09/26/18 09:00 XCU1094 (Rec: 09/26/18 11:57 ANS1882 MED-C11) Document 09/26/18 14:00 TTJ2333 (Rec: 09/26/18 14:18 AYA0881 MED-C09) Document 09/27/18 09:00 XZF5320 (Rec: 09/27/18 10:41 XVE0397 MED-C05) Document 09/27/18 14:00 DWK0171 (Rec: 09/27/18 14:09 TLQ6891 MED-C05) Document 09/27/18 18:00 NWP0508 (Rec: 09/27/18 18:21 BWO1336 MED-C05) Document 09/28/18 09:00 AHN9320 (Rec: 09/28/18 09:16 LJE3184 MED-C05) Document 09/28/18 13:49 TZA4537 (Rec: 09/28/18 13:50 PRV8167 MED-C05) Document 09/28/18 18:00 XIX3599 (Rec: 09/28/18 22:26 MHX3917 MED-C05) Document 09/29/18 09:00 IFX6124 (Rec: 09/29/18 13:53 TOZ8653 MED-C11) Document 09/29/18 14:00 POS3507 (Rec: 09/29/18 14:16 OKS0333 MED-C11) Document 09/29/18 18:00 LED0080 (Rec: 09/29/18 18:17 JEM3904 MED-C11) Document 09/30/18 09:00 HKR3425 (Rec: 09/30/18 09:46 VBA0205 MED-C25) Document 09/30/18 14:00 VWN3627 (Rec: 09/30/18 15:41 MOQ1827 MED-C25) Document 09/30/18 18:00 DXE9025 (Rec: 09/30/18 18:34 OGO9474 MED-C09) Document 10/01/18 09:00 AIR3266 (Rec: 10/01/18 13:55 ZOF3692 MED-C09) Document 10/01/18 14:00 LNF1859 (Rec: 10/01/18 16:07 VQI1776 MED-C11) Document 10/01/18 18:00 CFM5454 (Rec: 10/01/18 18:16 CMO5984 MED-C11) Document 10/02/18 09:00 FHD0716 (Rec: 10/02/18 09:09 SMY0884 MED-C11) Document 10/02/18 14:00 NIN4891 (Rec: 10/02/18 14:04 HZL5662 MED-C09) Document 10/02/18 18:00 YJP1814 (Rec: 10/02/18 18:06 OOZ2819 MED-C11) Document 10/03/18 09:00 ZFN6509 (Rec: 10/03/18 09:37 GJJ5497 MED-C09) Document 10/03/18 13:04 CPD5239 (Rec: 10/03/18 13:04 WHR0205 MED-C11) Document 10/03/18 18:00 NBY3303 (Rec: 10/03/18 18:16 LSK1909 MED-C11) Document 10/04/18 09:49 PXT4906 (Rec: 10/04/18 09:49 ORU9829 MED-C02) Document 10/04/18 13:35 NCR2353 (Rec: 10/04/18 13:37 NTP9780 MED-C09) Document 10/04/18 18:00 VQM1235 (Rec: 10/04/18 19:11 ZEC8892 MED-C09) Document 10/05/18 09:00 COQ6797 (Rec: 10/05/18 16:32 DWB5241 MED-C05) Document 10/05/18 14:00 YQN9856 (Rec: 10/05/18 16:38 SAQ4521 MED-C05) Document 10/05/18 18:00 MRJ7112 (Rec: 10/05/18 19:09 FSM2568 MED-C09) Document 10/06/18 09:00 GOX9240 (Rec: 10/06/18 09:41 FKD5383 MED-C07) Document 10/06/18 14:00 DTV6120 (Rec: 10/06/18 15:40 FMR7902 MED-C07) Intake and Output Start: 09/18/18 14: 53 Freq: Status: Complete Protocol: Created 09/18/18 14:53 System (Rec: 09/18/18 14:53 System ED-C24) Document 09/23/18 23:10 IVT4544 (Rec: 09/24/18 02:46 RES8530 MED-C12) Intake and Output Start: 09/18/18 21: 01 Freq: DAILY@0600,1400,2200 Status: Active Protocol: Created 09/18/18 21:01 System (Rec: 09/18/18 21:01 System MED-C02) Document 09/18/18 22:00 EJM7650 (Rec: 09/18/18 22:38 QLQ7868 MED-C14) Document 09/19/18 03:22 SPQ9398 (Rec: 09/19/18 03:22 LRH4067 MED-M19) Document 09/19/18 04:47 LDU3692 (Rec: 09/19/18 04:48 JIR7817 MED-C11) Document 09/19/18 14:00 XAZ9452 (Rec: 09/19/18 14:24 XET4333 MED-C11) Document 09/19/18 21:46 WXO2880 (Rec: 09/19/18 21:48 DUN1202 MED-C14) Document 09/20/18 03:53 MLQ6685 (Rec: 09/20/18 03:54 TCF0800 MED-M11) Document 09/20/18 05:16 HIE4854 (Rec: 09/20/18 05:16 QDG3465 MED-C07) Document 09/20/18 14:00 CGC6483 (Rec: 09/20/18 15:21 HRW7903 MED-C11) Document 09/20/18 16:30 KGS0667 (Rec: 09/20/18 16:30 WPX4523 MED-M02) Document 09/21/18 05:14 PZA6893 (Rec: 09/21/18 05:15 TAR6665 MED-C12) Document 09/21/18 14:00 KBY7478 (Rec: 09/21/18 17:24 IDQ6442 MED-C11) Document 09/21/18 21:31 EKX6383 (Rec: 09/21/18 21:37 GND9749 MED-C09) Document 09/22/18 05:38 EQA8387 (Rec: 09/22/18 05:40 LWU6728 MED-C11) Document 09/22/18 14:00 SQT2666 (Rec: 09/22/18 17:17 GJG6815 MED-C16) Document 09/22/18 22:00 MBW2237 (Rec: 09/22/18 22:23 ISH1767 MED-C11) Document 09/23/18 06:00 DFL5925 (Rec: 09/23/18 06:04 ETG5822 MED-C11) Document 09/23/18 14:00 PJD9265 (Rec: 09/23/18 15:43 HRJ8476 MED-M03) Document 09/24/18 06:00 OPD9500 (Rec: 09/24/18 06:45 XVN0773 MED-C11) Document 09/24/18 10:25 DRE6133 (Rec: 09/24/18 10:25 MZV1923 MED-C07) Document 09/24/18 14:00 XKC3158 (Rec: 09/24/18 14:02 PCW5354 MED-C09) Document 09/24/18 16:18 YTC2813 (Rec: 09/24/18 16:18 KCD2229 MED-C07) Document 09/24/18 22:00 RSF3003 (Rec: 09/24/18 23:15 ZFL2429 MED-C11) Document 09/25/18 04:20 NOX5079 (Rec: 09/25/18 04:21 LNL9030 MED-M18) Document 09/25/18 05:21 KID6329 (Rec: 09/25/18 05:22 UNC0300 MED-C09) Document 09/25/18 14:00 QPX7930 (Rec: 09/25/18 14:08 HQS2139 MED-C09) Document 09/25/18 22:00 OTH3474 (Rec: 09/25/18 22:03 GAA2416 MED-C15) Document 09/26/18 05:11 NGQ6228 (Rec: 09/26/18 05:12 DBM4277 MED-C11) Document 09/26/18 14:00 VKI7827 (Rec: 09/26/18 15:38 UKO4316 MED-C09) Document 09/26/18 21:51 GDG8477 (Rec: 09/26/18 22:11 BZA4017 MED-C07) Document 09/27/18 05:38 QTM9662 (Rec: 09/27/18 05:39 AOI2447 MED-C07) Document 09/27/18 14:00 SMI4561 (Rec: 09/27/18 14:11 KJZ3865 MED-C05) Document 09/27/18 21:47 UCB5740 (Rec: 09/27/18 21:48 LRC8122 MED-C13) Document 09/28/18 05:14 ISX8921 (Rec: 09/28/18 05:15 VWO4594 MED-C13) Document 09/28/18 13:49 QKS9081 (Rec: 09/28/18 13:50 VYC5190 MED-C05) Document 09/28/18 22:00 DYQ4979 (Rec: 09/28/18 22:31 KUQ1812 MED-C05) Document 09/29/18 06:00 GNV0488 (Rec: 09/29/18 06:03 YXY5224 MED-C02) Document 09/29/18 13:53 HXK1773 (Rec: 09/29/18 13:54 PMT2231 MED-C11) Document 09/29/18 21:22 BIH4948 (Rec: 09/29/18 21:22 XQU4608 MED-C11) Document 09/30/18 05:52 GWC2791 (Rec: 09/30/18 05:53 VOV5963 MED-C11) Document 09/30/18 13:36 TNI7233 (Rec: 09/30/18 13:37 ZHV1596 MED-C25) Document 09/30/18 20:41 RMP9670 (Rec: 09/30/18 20:47 XWI2702 MED-C09) Document 10/01/18 05:57 NPW7244 (Rec: 10/01/18 05:58 PIY8098 MED-C26) Document 10/01/18 14:00 ODE9031 (Rec: 10/01/18 14:06 BWD7987 MED-C09) Document 10/01/18 21:47 JWG9344 (Rec: 10/01/18 21:47 FJQ2572 MED-C11) Document 10/02/18 06:00 EKU1485 (Rec: 10/02/18 06:21 BOV1706 MED-C11) Document 10/02/18 14:00 ZLE9769 (Rec: 10/02/18 14:04 CZB9332 MED-C09) Document 10/02/18 21:44 EON0733 (Rec: 10/02/18 21:45 KOS9151 MED-C09) Document 10/03/18 04:41 KYJ9998 (Rec: 10/03/18 04:42 WJG7849 MED-C16) Document 10/03/18 14:00 LSS5455 (Rec: 10/03/18 14:08 MPG0171 MED-C11) Document 10/03/18 21:14 RFZ2309 (Rec: 10/03/18 21:15 YFA4730 MED-C11) Document 10/04/18 05:35 DPV5103 (Rec: 10/04/18 05:36 JHC6951 MED-C09) Document 10/04/18 13:35 WZQ8888 (Rec: 10/04/18 13:37 NSJ6587 MED-C09) Document 10/04/18 22:00 DMG5096 (Rec: 10/04/18 22:36 PBY5534 MED-C13) Document 10/05/18 05:52 OYB2858 (Rec: 10/05/18 05:53 XAJ6642 MED-C13) Document 10/05/18 14:00 IAF8996 (Rec: 10/05/18 16:38 TKA4471 MED-C05) Document 10/05/18 22:00 FID2248 (Rec: 10/05/18 22:03 PUW5928 MED-C09) Document 10/06/18 04:49 UWU6929 (Rec: 10/06/18 04:50 ITL7393 MED-C09) Document 10/06/18 14:00 ZUE8803 (Rec: 10/06/18 15:40 IOC9625 MED-C07) Document 10/06/18 22:00 DMZ6562 (Rec: 10/07/18 00:31 TZK0335 MEDL-C01) Document 10/07/18 06:00 ANK7768 (Rec: 10/07/18 06:10 QRF8873 MED-C09) - Physical Exam General Physical Exam Comment: She is sitting comfortably in a chair General: No Cyanosis, No Anemia, No Jaundice, No Clubbing Lungs and Chest: Yes: Chest Expansion Full, Chest Expansion Symetrica, Percussion Note Resonant, Vessicular Breath Sounds. No: Crackles, Wheezes Heart Rate and Rhythm: Regular Reardan Beat: Non Displaced Additional Cardiovascular: Yes: Normal Heart Sounds. No: Heart Murmur, Pedal Edema Abdominal Exam: Yes: Soft, Bowel Sounds Present. No: Distention, Abdominal Tenderness Results - Results Lab Results: Laboratory Results - last 24 hr 10/06/18 10/06/18 10/06/18 12:09 16:54 23:57 Sodium Potassium Chloride Carbon Dioxide Anion Gap BUN Creatinine Est GFR ( Amer) Est GFR (Non-Af Amer) BUN/Creatinine Ratio Glucose POC Glucose (mg/dL) 128 H 117 H 120 H Calcium Phosphorus Magnesium Total Bilirubin AST ALT Alkaline Phosphatase Total Protein Albumin Globulin Albumin/Globulin Ratio Prealbumin Triglycerides Cholesterol 10/07/18 05:05 Sodium 135 Potassium 4.4 Chloride 110 Carbon Dioxide 20 L Anion Gap 5 BUN 30 H Creatinine 0.54 Est GFR ( Amer) 131.8 Est GFR (Non-Af Amer) 108.9 BUN/Creatinine Ratio 55.6 H Glucose 104 H POC Glucose (mg/dL) Calcium 8.2 L Phosphorus 3.6 Magnesium 2.0 Total Bilirubin 0.40 AST 21 ALT 49 Alkaline Phosphatase 74 Total Protein 5.2 L Albumin 3.1 L Globulin 2.1 Albumin/Globulin Ratio 1.5 Prealbumin 31 Triglycerides 147 Cholesterol 137 Assessment - Problem List Assessment: Patient Problems Anastomotic ulcer S/P gastric bypass (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) Malignant neoplasm of pancreas, part unspecified (Acute) Nutrition deficiency due to insufficient food (Acute) Adrenal nodule (Chronic) Anticoagulation adequate (Chronic) Anxiety (Chronic) Luna aneurysm (Chronic) Carcinoma of breast (Chronic) Cardiomyopathy (Chronic) Cerebrovascular disease (Chronic) Essential hypertension (Chronic) Hx of DVT (Chronic) Hx right colectomy for colon cancer (Chronic) Hyperlipidemia (Chronic) Hypothyroidism (Chronic) Implanted cardiac defibrillator (Chronic) Non-ischemic cardiomyopathy (Chronic) Osteoporosis (Chronic) Plan: Anastomotic ulcer S/P gastric bypass (Acute)History of Dariusz-en-Y gastric bypass (Acute)History of partial pancreatectomy (Acute)Malignant neoplasm of pancreas, part unspecified (Acute) She is recovering. However, her confidence is low in terms of her ability to eat. I showed her a diagram of the Whipple procedure to refresh her memory and explain some of the ways she has to adapt her diet. I will have a dietitian consult with her to give her some practical education on how to eat post-Whipple. Nutrition deficiency due to insufficient food (Acute) I will have her continue TPN until tomorrow - she continues to have a high BUN, otherwise all looks well in her labs. Anxiety (Chronic) She has developed some depression that appears reactive to her experience. I discussed the use of antidepressants. This may spare her benzodiazepines. The one I recommend is mirtazapine 7.5 mg at bedtime as this is an appetite stimulator. She will discuss this with Dr. Anusha Reed Secondary diagnoses: These are not causing difficulties today: Lane syndrome (Acute) Adrenal nodule (Chronic) Anticoagulation adequate (Chronic) Luna aneurysm (Chronic) Carcinoma of breast (Chronic) Cardiomyopathy (Chronic) Cerebrovascular disease (Chronic) Essential hypertension (Chronic) Hx of DVT (Chronic) Hx right colectomy for colon cancer (Chronic) Hyperlipidemia (Chronic) Hypothyroidism (Chronic) Implanted cardiac defibrillator (Chronic) Non-ischemic cardiomyopathy (Chronic) Osteoporosis (Chronic) I discussed the above with the patient and she agrees with the management plan
[2018-10-07] MEDS: Pantoprazole TAB * 40 MG TAB PO SCH (12:18)
[2018-10-07] MEDS ORDERED: Pantoprazole TAB * 40 MG TAB ONE (12:18)
[2018-10-07] MEDS: TPN* 24 HR with Dextrose 50% Water* 500 ML, Amino Acid Infusion 10%* 850 ML, Sterile Wa... CENTR SCH ×11 (17:21)
[2018-10-07] MEDS: Docusate CAP* 100 MG PO SCH (21:34)
[2018-10-07] MEDS: Apixaban* 2.5 MG TAB PO SCH (21:38)
[2018-10-08] MEDS: Insulin LISPRO* 1 UNITS UNIT SUBCUT SCH ×4 (00:10→17:18)
[2018-10-08] MEDS: Levothyroxine TAB* 50 MCG TAB PO SCH (05:40)
[2018-10-08 06:25] LABS: Albumin 3.2 g/dL (3.2-5.2); Albumin/Globulin Ratio 1.3 (1-3); Calcium 8.3 mg/dL (8.6-10.3); Globulin 2.4 g/dL (2-4); Magnesium 1.9 mg/dL (1.9-2.7); Phosphorus 3.5 mg/dL (2.5-5.0); Potassium 4.1 mmol/L (3.5-5.0); Total Bilirubin 0.3 mg/dL (0.2-1.0); Total Protein 5.6 g/dL (6.4-8.9)
[2018-10-08] MEDS: Apixaban* 2.5 MG TAB PO SCH ×2 (09:49→22:03)
[2018-10-08] MEDS: Pantoprazole TAB * 40 MG TAB PO SCH (09:49)
[2018-10-08] MEDS: Metoprolol Succinate XL TAB* 25 MG PO SCH ×2 (09:50→21:58)
[2018-10-08] MEDS: Nitrofurantoin Macrocrystals* 100 MG CAP PO SCH ×2 (09:50→22:04)
[2018-10-08] MEDS: Lisinopril TAB* 5 MG PO SCH ×2 (09:50→22:00)
[2018-10-08] MEDS: Liothyronine TAB* 5 MCG PO SCH ×2 (09:51→12:47)
[2018-10-08] MEDS: Docusate CAP* 100 MG PO SCH ×2 (10:14→22:00)
[2018-10-08] MEDS: amLODIPine TAB* 5 MG PO SCH (10:14)
[2018-10-08] MEDS ORDERED: TPN* 24 HR with Dextrose 50% Water* 500 ML, Amino Acid Infusion 10%* 850 ML, Sterile Wa... CENTR SCH ×23 (10:20→11:00)
[2018-10-08] MEDS: Pancrelipase CAP* 5,000 UNITS CAP PO SCH ×2 (12:47→16:42)
[2018-10-08] MEDS: TPN* 24 HR with Dextrose 50% Water* 500 ML, Amino Acid Infusion 10%* 850 ML, Sterile Wa... CENTR SCH ×12 (16:42)
[2018-10-08] MEDS: Mirtazapine TAB* 15 MG PO SCH (22:02)
[2018-10-09] MEDS: Insulin LISPRO* 1 UNITS UNIT SUBCUT SCH ×5 (00:59→22:33)
[2018-10-09] MEDS: Acetaminophen TAB* 325 MG PO PRN (02:54)
[2018-10-09] MEDS: Levothyroxine TAB* 50 MCG TAB PO SCH (06:57)
[2018-10-09 07:37] LABS: Albumin 3.3 g/dL (3.2-5.2); Albumin/Globulin Ratio 1.3 (1-3); BUN/Creatinine Ratio 50.9 (8-20); Calcium 8.5 mg/dL (8.6-10.3); EGFR African American 134.6 (>60); EGFR Non-African American 111.3 (>60); Globulin 2.6 g/dL (2-4); Phosphorus 3.6 mg/dL (2.5-5.0); Potassium 4.1 mmol/L (3.5-5.0); Total Bilirubin 0.3 mg/dL (0.2-1.0); Total Protein 5.9 g/dL (6.4-8.9)
[2018-10-09] MEDS: amLODIPine TAB* 5 MG PO SCH (07:58)
[2018-10-09] MEDS: Lisinopril TAB* 5 MG PO SCH ×2 (07:59→19:51)
[2018-10-09] MEDS: Pantoprazole TAB * 40 MG TAB PO SCH (07:59)
[2018-10-09] MEDS: Metoprolol Succinate XL TAB* 25 MG PO SCH ×2 (07:59→19:49)
[2018-10-09] MEDS: Nitrofurantoin Macrocrystals* 100 MG CAP PO SCH ×2 (08:00→19:50)
[2018-10-09] MEDS: Pancrelipase CAP* 5,000 UNITS CAP PO SCH ×3 (08:00→16:56)
[2018-10-09] MEDS: Apixaban* 2.5 MG TAB PO SCH ×2 (08:00→19:50)
[2018-10-09] MEDS: Docusate CAP* 100 MG PO SCH ×2 (08:00→19:50)
[2018-10-09] MEDS: Liothyronine TAB* 5 MCG PO SCH ×2 (08:02→11:51)
[2018-10-09] MEDS: TPN* 24 HR with Dextrose 50% Water* 500 ML, Amino Acid Infusion 10%* 850 ML, Sterile Wa... CENTR SCH ×12 (16:56)
[2018-10-09] MEDS: Mirtazapine TAB* 15 MG PO SCH (19:52)
[2018-10-09 22:20] LABS: Urine Appearance Cloudy; Urine Bilirubin Negative (Negative); Urine Blood Negative (Negative); Urine Color Yellow; Urine Glucose Negative (Negative); Urine Ketones Negative (Negative); Urine Nitrite Negative (Negative); Urine Protein Negative (Negative); Urine Specific Gravity 1.015 (1.010-1.030); Urine Urobilinogen Negative (Negative)
[2018-10-10] MEDS: Insulin LISPRO* 1 UNITS UNIT SUBCUT SCH ×3 (05:25→17:19)
[2018-10-10] MEDS: Levothyroxine TAB* 50 MCG TAB PO SCH (05:26)
[2018-10-10 06:22] LABS: Albumin 3.2 g/dL (3.2-5.2); Calcium 8.3 mg/dL (8.6-10.3); Potassium 4.2 mmol/L (3.5-5.0); Total Bilirubin 0.3 mg/dL (0.2-1.0)
[2018-10-10 06:28] LABS: Albumin/Globulin Ratio 1.5 (1-3); BUN/Creatinine Ratio 53.7 (8-20); EGFR African American 131.8 (>60); EGFR Non-African American 108.9 (>60); Globulin 2.2 g/dL (2-4); Total Protein 5.4 g/dL (6.4-8.9)
[2018-10-10] MEDS: Pancrelipase CAP* 5,000 UNITS CAP PO SCH ×3 (08:12→17:18)
[2018-10-10] MEDS: Metoprolol Succinate XL TAB* 25 MG PO SCH ×2 (08:12→20:33)
[2018-10-10] MEDS: Pantoprazole TAB * 40 MG TAB PO SCH (08:12)
[2018-10-10] MEDS: Apixaban* 2.5 MG TAB PO SCH ×2 (08:12→20:32)
[2018-10-10] MEDS: Nitrofurantoin Macrocrystals* 100 MG CAP PO SCH (08:12)
[2018-10-10] MEDS: Lisinopril TAB* 5 MG PO SCH ×2 (08:13→20:33)
[2018-10-10] MEDS: amLODIPine TAB* 5 MG PO SCH (08:13)
[2018-10-10] MEDS: Liothyronine TAB* 5 MCG PO SCH ×2 (08:13→12:12)
[2018-10-10] MEDS: Docusate CAP* 100 MG PO SCH ×2 (08:19→20:32)
[2018-10-10] MEDS: Mirtazapine TAB* 15 MG PO SCH (20:33)
[2018-10-11] MEDS: Acetaminophen TAB* 325 MG PO PRN (03:34)
[2018-10-11] MEDS: Levothyroxine TAB* 50 MCG TAB PO SCH (05:51)
[2018-10-11] MEDS: Insulin LISPRO* 1 UNITS UNIT SUBCUT SCH ×5 (06:05→23:42)
[2018-10-11] MEDS: Metoprolol Succinate XL TAB* 25 MG PO SCH ×2 (08:22→19:48)
[2018-10-11] MEDS: amLODIPine TAB* 5 MG PO SCH (08:23)
[2018-10-11] MEDS: Lisinopril TAB* 5 MG PO SCH ×2 (08:24→19:48)
[2018-10-11] MEDS: Docusate CAP* 100 MG PO SCH ×2 (08:24→19:47)
[2018-10-11] MEDS: Liothyronine TAB* 5 MCG PO SCH ×2 (08:24→12:47)
[2018-10-11] MEDS: Pantoprazole TAB * 40 MG TAB PO SCH (08:25)
[2018-10-11] MEDS: Apixaban* 2.5 MG TAB PO SCH ×2 (08:25→19:48)
[2018-10-11] MEDS: Pancrelipase CAP* 5,000 UNITS CAP PO SCH ×3 (08:25→16:49)
[2018-10-11] MEDS: Mirtazapine TAB* 15 MG PO SCH (19:48)
[2018-10-12] MEDS: Insulin LISPRO* 1 UNITS UNIT SUBCUT SCH ×2 (05:28→11:41)
[2018-10-12] MEDS: Levothyroxine TAB* 50 MCG TAB PO SCH (05:52)
[2018-10-12] MEDS: Lisinopril TAB* 5 MG PO SCH (08:32)
[2018-10-12] MEDS: Liothyronine TAB* 5 MCG PO SCH ×2 (08:32→12:44)
[2018-10-12] MEDS: Pancrelipase CAP* 5,000 UNITS CAP PO SCH ×2 (08:32→12:44)
[2018-10-12] MEDS: Pantoprazole TAB * 40 MG TAB PO SCH (08:33)
[2018-10-12] MEDS: amLODIPine TAB* 5 MG PO SCH (08:33)
[2018-10-12] MEDS: Metoprolol Succinate XL TAB* 25 MG PO SCH (08:33)
[2018-10-12] MEDS: Apixaban* 2.5 MG TAB PO SCH (08:33)
[2018-10-12] MEDS: Docusate CAP* 100 MG PO SCH (08:40)
[2018-10-12 10:58] LABS: ABS Basophils 0.1 10^3/ul (0-0.2); ABS Eosinophils 0.2 10^3/ul (0-0.6); ABS Lymphocytes 0.9 10^3/ul (1.0-4.8); ABS Monocytes 0.5 10^3/ul (0-0.8); ABS Neutrophils 2.4 10^3/ul (1.5-7.7); Eosinophil % 4.1 %; Hematocrit 29 % (35-47); Hemoglobin 9.9 g/dL (12.0-16.0); Lymphocyte % 21.3 %; Mean Corpuscular HGB Conc 34 g/dL (31-36); Mean Corpuscular Hemoglobin 31 pg (27-31); Mean Corpuscular Volume 92 fL (80-97); Mean Platelet Volume 8.6 fL (7.4-10.4); Nucleated Red Blood Cells % 0.1; Platelet Count 239 10^3/uL (150-450); Red Blood Count 3.18 10^6 /uL (3.70-4.87); Red Cell Distribution Width 15 % (10.5-15)
[2018-10-12 11:09] LABS: BUN/Creatinine Ratio 35.7 (8-20); Calcium 8.7 mg/dL (8.6-10.3); EGFR African American 97.4 (>60); EGFR Non-African American 80.5 (>60); Potassium 3.7 mmol/L (3.5-5.0)
[2018-10-12 11:18] VITALS: BP 135/68
[2018-10-12 11:51] LABS: TSH (Thyroid Stimulating Horm) 4.06 mcIU/mL (0.34-5.60)
== END 2018-10-12 13:30 | disposition home health service (06) | DRG 381 ==
LOC: ED 14:36 → MED 20:21 → OBSVTOIN 09-19 14:00 → MED 09-26 13:20
PROVIDERS: ADMIT Internal Medicine; ATTEND Internal Medicine Geriatric Medicine
PROC: 0DJ08ZZ Inspection of Upper Intestinal Tract, Via Natural or Artificial Opening Endoscopic (ICD-10-PCS; principal; 2018-09-20)
PROC: 02HV33Z Insertion of Infusion Device into Superior Vena Cava, Percutaneous Approach (ICD-10-PCS; 2018-09-26)
DX: K28.9 Gastrojejunal ulcer, unspecified as acute or chronic, without hemorrhage or perforation (principal); I42.8 Other cardiomyopathies; E03.9 Hypothyroidism, unspecified; I10 Essential (primary) hypertension; K57.90 Diverticulosis of intestine, part unspecified, without perforation or abscess without bleeding; G43.909 Migraine, unspecified, not intractable, without status migrainosus; F41.9 Anxiety disorder, unspecified; F32.9 Major depressive disorder, single episode, unspecified; M81.0 Age-related osteoporosis without current pathological fracture; M19.90 Unspecified osteoarthritis, unspecified site; E27.9 Disorder of adrenal gland, unspecified; I67.1 Cerebral aneurysm, nonruptured; T73.0XXA Starvation, initial encounter; X58.XXXA Exposure to other specified factors, initial encounter; E78.5 Hyperlipidemia, unspecified; E87.6 Hypokalemia; K20.9 Esophagitis, unspecified; Z85.3 Personal history of malignant neoplasm of breast; Z85.43 Personal history of malignant neoplasm of ovary; Z85.07 Personal history of malignant neoplasm of pancreas; Z86.718 Personal history of other venous thrombosis and embolism; Z86.73 Personal history of transient ischemic attack (TIA), and cerebral infarction without residual deficits; Z95.810 Presence of automatic (implantable) cardiac defibrillator; Z90.49 Acquired absence of other specified parts of digestive tract; Z88.2 Allergy status to sulfonamides; Z85.038 Personal history of other malignant neoplasm of large intestine; Z91.013 Allergy to seafood; Z90.12 Acquired absence of left breast and nipple; Z90.722 Acquired absence of ovaries, bilateral; Z90.411 Acquired partial absence of pancreas; D64.9 Anemia, unspecified
CPT/HCPCS: 36415; 36569; 71045; 74018; 74019; 76937; 77001; 80048; 80053; 81003; 81015; 82465; 82607; 82728; 83036; 83540; 83550; 83605; 83630; 83690; 83735; 84100; 84134; 84439; 84443; 84478; 84479; 84550; 85025; 85027; 86140; 87070; 87077; 87086; 87205; 87493; 87640; 87641; 89051; 89060; 93005; 99156; 99157; 99232; 99233; 99284; A9270-GY; G8978-GP-CL; G8979-GP-CI; J0456; J0780; J1040; J1642; J1644; J1650; J2060; J2250; J2270; J2405; J2765; J3010; J3475; J3480; J3490

== ENCOUNTER 2019-04-06 18:23 | Emergency (ER) | payer MEDICARE, OTHER ==
--- OUTSIDE RECORDS SUMMARY | 2019-04-06 18:31 | XMS REPORT | Continuity of Care Document ---
:1940 External Reference #:[id number] Author Name Karson Felix M.D. Address 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 Problems Description No Information Available Social History Type Date Description Comments Sex Unknown ETOH Use Never used alcohol Tobacco Use Start: Unknown Patient has never smoked Smoking Status Reviewed: 02/18/19 Patient has never smoked Allergies, Adverse Reactions, Alerts Active Allergies Reaction Severity Comments Date Penicillin 03/16/2018 Sulfa Antibiotics 03/16/2018 Seafood 03/16/2018 Contrast Dye 12/19/2018 Medications Active Medications SIG Qnty Indications Ordering Provider Date Synthroid Anusha Reed MD 50mcg Tablets Metoprolol Succinate Unknown ER 50mg Tablets ER 24HR Liothyronine Sodium Anusha Reed MD 5mcg Tablets Simvastatin take 1 tablet by Unknown 10mg Tablets mouth at bedtime Lisinopril Unknown 5mg Tablets Eliquis Unknown 5mg Tablets Pantoprazole Sodium Anusha Reed MD 40mg Tablets DR Immunizations Description No Information Available Vital Signs Date Vital Result Comment 02/18/2019 10:23am Intraocular Pressure Right Eye 19 mmHg Intraocular Pressure Left Eye 19 mmHg 12/19/2018 8:48am Intraocular Pressure Right Eye 16 mmHg Intraocular Pressure Left Eye 16 mmHg Results Description No Information Available Procedures Date Code Description Status 02/18/2019 97110 Eye Exam Est Comprehensive Completed Medical Devices Description No Information Available Encounters Type Date Location Provider Dx Diagnosis Office Visit 12/19/2018 Main Office Karson Felix H25.13 Age-related nuclear 8:30a M.D. cataract, bilateral H04.123 Dry eye syndrome of bilateral lacrimal glands Assessments Date Code Description Provider 02/18/2019 H25.13 Age-related nuclear cataract, bilateral Karson Felix M.D. 02/18/2019 H04.123 Dry eye syndrome of bilateral lacrimal glands Karson Felix M.D. 02/18/2019 H11.153 Pinguecula, bilateral Karson Felix M.D. 12/19/2018 H25.13 Age-related nuclear cataract, bilateral Karson Felix M.D. 12/19/2018 H04.123 Dry eye syndrome of bilateral lacrimal glands Karson Felix M.D. Plan of Treatment 02/18/2019 - Karson Felix M.D.H25.13 Age-related nuclear cataract, wskddtixtD02.123 Dry eye syndrome of bilateral lacrimal wjfdfdE53.153 Pinguecula , bilateralFollow up:1 yr Functional Status Description No Information Available Mental Status Description No Information Available Referrals Description No Information Available
[2019-04-06] MEDS ORDERED: oxyCODONE/Acetamin 5/325 MG* TAB PO ONE (19:20)
[2019-04-06 19:49] LABS: Hematocrit 31 % (35-47); Hemoglobin 10.4 g/dL (12.0-16.0); Mean Corpuscular HGB Conc 34 g/dL (31-36); Mean Corpuscular Hemoglobin 33 pg (27-31); Mean Corpuscular Volume 97 fL (80-97); Mean Platelet Volume 8.7 fL (7.4-10.4); Platelet Count 85 10^3/uL (150-450); Red Blood Count 3.16 10^6 /uL (3.70-4.87); Red Cell Distribution Width 19 % (10-15); White Blood Count 4.5 10^3/uL (3.5-10.8)
[2019-04-06 19:50] LABS: ABS Eosinophils 0.1 10^3/ul (0-0.6); ABS Lymphocytes 0.3 10^3/ul (1.0-4.8); Eosinophil % 3.1 %; Lymphocyte % 6.4 %
[2019-04-06 20:04] LABS: Albumin 3.5 g/dL (3.2-5.2); Albumin/Globulin Ratio 1.3 (1-3); BUN/Creatinine Ratio 18.2 (8-20); Calcium 8.8 mg/dL (8.6-10.3); EGFR African American 65.3 (>60); Globulin 2.8 g/dL (2-4); Potassium 4.2 mmol/L (3.5-5.0); Total Bilirubin 0.9 mg/dL (0.2-1.0); Total Protein 6.3 g/dL (6.4-8.9)
--- NOTE | 2019-04-06 20:04 | ED ---
Back Pain - HPI Summary HPI Summary: This patient is an 78 year old F presenting to [facility] accompanied by with a chief complaint of worsening lower back pain since 03/22/19. Pt report she was standing and twisted on 03/22/19, and back pain began suddenly with a sharp pain. She reports originally it was localized on the R side and since then it alternates. The patient rates the pain 5/10 in severity, and a 8/10 with movement. Pt has PMHx of Osteoporosis, Breast CA, Ovarian CA, Colon CA, and Pancreatic CA (currently goes to Dr. Conde.) Patient denies numbness and tingling in legs. - History of Current Complaint Chief Complaint: EDBackInjuryPain Stated Complaint: BACK PAIN PER PT Time Seen by Provider: 04/06/19 18:39 Hx Obtained From: Patient Onset/Duration: Sudden Onset, Lasting Weeks, Still Present Onset/Duration: Started Weeks Ago Timing: Constant Severity Initially: Moderate Severity Currently: Severe Pain Intensity: 8 Pain Scale Used: 0-10 Numeric Character: Sharp Aggravating Symptom(s): Movement Alleviating Symptom(s): Nothing Associated Signs And Symptoms: Negative: Numbness - Allergies/Home Medications Allergies/Adverse Reactions: Allergies Allergy/AdvReac Type Severity Reaction Status Date / Time Iodinated Contrast Media Allergy Hives Verified 04/06/19 18:30 [Iodinated Contrast- Oral and IV Dye] Penicillins Allergy Rash Verified 04/06/19 18:30 shellfish derived Allergy Hives Verified 04/06/19 18:30 Sulfa (Sulfonamide Allergy Rash Verified 04/06/19 18:30 Antibiotics) PMH/Surg Hx/FS Hx/Imm Hx Endocrine/Hematology History: Reports: Hx Anticoagulant Therapy - coumadin, Hx Thyroid Disease Denies: Hx Diabetes, Hx Anemia Cardiovascular History: Reports: Hx Auto Implanted Cardiovert Defib, Hx Hypertension, Hx Pacemaker/ICD - DR. CABALLERO FOLLOWING, Other Cardiovascular Problems/Disorders - Pacer, ICD Respiratory History: Denies: Hx Asthma, Hx Chronic Obstructive Pulmonary Disease (COPD) GI History: Reports: Hx Diverticulosis, Other GI Disorders - Choley, Colon CA, PANCREATIC CA Denies: Hx Jaundice History: Denies: Hx Renal Disease Musculoskeletal History: Reports: Hx Arthritis, Hx Back Problems, Hx Osteoporosis Denies: Hx Rheumatoid Arthritis Sensory History: Reports: Hx Contacts or Glasses Denies: Hx Hearing Aid Opthamlomology History: Reports: Hx Contacts or Glasses Neurological History: Reports: Hx Migraine - possible occular migraines, Other Neuro Impairments/Disorders - 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 Breast CA W/ Left mastectomy. Ovarian CA. Hx Chemotherapy: Yes Hx Radiation Therapy: No - Surgical History Surgery Procedure, Year, and Place: HERNIATED DISK SX LUMBAR LEVEL 3-4. colon ca 2009 section removed. DEFIBRILATOR RT CHEST 2010. mastectomy left side 1980. thyroid surgery 1979. hysterectomy for ovarian cancer 2009. 09/10/18 WHIPPLE PROCEDURE @ [facility] Hx Anesthesia Reactions: Yes - patient states she is irate when coming out Infectious Disease History: No Infectious Disease History: Reports: Hx Hepatitis - as child Denies: Hx Human Immunodeficiency Virus (HIV), History Other Infectious Disease, Traveled Outside the in Last 30 Days - Family History Known Family History: Positive: Other - osteoporosis Family History: No FHx of ventricular tachycardia. - Social History Alcohol Use: None Hx Substance Use: No Substance Use Type: Reports: None Hx Tobacco Use: No Smoking Status (MU): Never Smoked Tobacco Review of Systems Positive: Other - back pain Negative: Numbness All Other Systems Reviewed And Are Negative: Yes Physical Exam - Summary Physical Exam Summary: Constitutional: Well-developed, Well-nourished, Alert. (-) Distressed Skin: Warm, Dry HENT: Normocephalic; Atraumatic Eyes: Conjunctiva normal Neck: Musculoskeletal ROM normal neck. (-) JVD, (-) Stridor, (-) Nuchal rigidity Cardio: Rhythm regular, rate normal, Heart sounds normal; Intact distal pulses; Radial pulses are 2+ and symmetric. (-) Murmur Pulmonary/Chest wall: Effort normal. (-) Respiratory distress, (-) Wheezes, (-) Rales Abd: Soft, (-) tenderness, (-) Distension, (-) Guarding, (-) Rebound Musculoskeletal: (-) Edema; L lumbar midline and paraspinal pain Lymph: (-) Cervical adenopathy Neuro: Alert, Oriented x3 Psych: Mood and affect Normal Triage Information Reviewed: Yes Vital Signs On Initial Exam: Initial Vitals Temp Pulse Resp BP Pulse Ox 97.1 F 75 18 131/87 99 04/06/19 18:27 04/06/19 18:27 04/06/19 18:27 04/06/19 18:27 04/06/19 18:27 Vital Signs Reviewed: Yes Procedures - Sedation Patient Received Moderate/Deep Sedation with Procedure: No Diagnostics - Vital Signs Vital Signs Temp Pulse Resp BP Pulse Ox 04/06/19 19:45 18 04/06/19 18:27 97.1 F 75 18 131/87 99 - Laboratory Lab Results: Lab Results 04/06/19 Range/Units 19:43 WBC 4.5 (3.5-10.8) 10^3/uL RBC 3.16 L (3.70-4.87) 10^6 /uL Hgb 10.4 L (12.0-16.0) g/dL Hct 31 L (35-47) % MCV 97 (80-97) fL MCH 33 H (27-31) pg MCHC 34 (31-36) g/dL RDW 19 H (10-15) % Plt Count 85 L (150-450) 10^3/uL MPV 8.7 (7.4-10.4) fL Neut % (Auto) 89.0 % Lymph % (Auto) 6.4 % [place] % (Auto) 1.0 % Eos % (Auto) 3.1 % Baso % (Auto) 0.5 % Absolute Neuts (auto) 4.0 (1.5-7.7) 10^3/ul Absolute Lymphs (auto) 0.3 L (1.0-4.8) 10^3/ul Absolute Monos (auto) 0.0 (0-0.8) 10^3/ul Absolute Eos (auto) 0.1 (0-0.6) 10^3/ul Absolute Basos (auto) 0.0 (0-0.2) 10^3/ul Absolute Nucleated RBC 0.0 10^3/ul Nucleated RBC % 0.0 Result Diagrams: 04/06/19 19:43 04/06/19 19:43 Lab Statement: Any lab studies that have been ordered have been reviewed, and results considered in the medical decision making process. - CT Abdomen/Pelvis CT CT Interpretation Completed By: Radiologist Summary of CT Findings: Abdomen/Pelvis CT reveals, per radiologist, IMPRESSION: 1. Acute L1 compression fracture, likely traumatic, as there is no clear. visualized lesion. Consider followup lumbar spine pre-and postcontrast MRI. 2. Simple hepatic cyst. No followup imaging indicated per ACR guidelines. 3. Left adrenal adenoma. No followup imaging indicated per ACR guidelines. ED physician has reviewed this radiology report. Re-Evaluation - Re-Evaluation First Eval Re-Evaluation Time: 21:00 Comment: Discussed results with pt including L1 compression fr and plan for NSGY consult. Second Eval Re-Evaluation Time: 21:25 Comment: Discussed plan of TLSO brace, pain control w percocet and NSGY follow up outpatient. Awaiting TLSO brace, then can be discharged home. 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 Physical exam of midline tenderness of the lumbar spine, no weakness of lower extremities. Check a CT given risk factors, concern for traumatic fracture versus maligant fracture. Given percocet for pain as tramadol has not been working. - Diagnoses Provider Diagnoses: Lumbar compression fracture Discharge ED - Sign-Out/Discharge Documenting (check all that apply): Patient Departure - Discharge - Discharge Plan Condition: Stable Disposition: HOME Patient Education Materials: Thoracolumbar Fracture (ED) Referrals: Anusha Reed MD [Primary Care Provider] - Angelita Kitchen MD [Medical Doctor] - 2 Days Additional Instructions: You were seen in the emergency department for back pain. Your CT scan showed a compression fracture of L1. We discussed with our on-call neurosurgeon, who recommended a TLSO brace. Please keep this on. Please follow up with ourneurosurgeon Dr. Logan. You can take Percocet 53 25 mg every 6 hours as needed for pain, this has Tylenol in it so please do not take it with Tylenol. Please follow up with your primary care doctor in next 2-3 days and return to emergency department for worsening pain, numbness or tingling in your arms or legs, weakness, or concerning symptoms. It was a pleasure taking care of you today. - Billing Disposition and Condition Condition: STABLE Disposition: Home - Attestation Statements Document Initiated by Tonyiblynda: Yes Documenting Scribe: Radha Carreno Provider For Whom Anders is Documenting (Include Credential): Lety Elaine MD Scribe Attestation: Radha Dixon, scribed for Lety Elaine MD on 04/06/19 at 2145. Scribe Documentation Reviewed: Yes Provider Attestation: The documentation as recorded by the Radha andrea accurately reflects the service I personally performed and the decisions made by Lety ferreira MD Status of Scribe Document: Viewed
[2019-04-06 23:21] VITALS: BP 90/61
== END 2019-04-06 23:20 | disposition home or self-care (01) ==
LOC: ED 18:23
DX: S32.010A Wedge compression fracture of first lumbar vertebra, initial encounter for closed fracture (principal); X50.1XXA Overexertion from prolonged static or awkward postures, initial encounter; Y92.9 Unspecified place or not applicable; K76.89 Other specified diseases of liver; D35.02 Benign neoplasm of left adrenal gland; I10 Essential (primary) hypertension; Z79.01 Long term (current) use of anticoagulants; Z95.810 Presence of automatic (implantable) cardiac defibrillator; Z88.0 Allergy status to penicillin; Z88.2 Allergy status to sulfonamides; Z91.041 Radiographic dye allergy status; Z85.038 Personal history of other malignant neoplasm of large intestine; Z85.3 Personal history of malignant neoplasm of breast; Z85.43 Personal history of malignant neoplasm of ovary; Z85.07 Personal history of malignant neoplasm of pancreas
CPT/HCPCS: 36415; 74176; 80053; 85025; 99283; A9270-GY